=== PATIENT | male | born 1955 | race African-American/Black ===

== ENCOUNTER 2017-05-29 14:51 | Inpatient (IN) | payer OTHER ==
[~2017-05-29] VITALS: Ht 185.4 cm; Wt 90.3 kg
[2017-05-29] MEDS ORDERED: Ipratropium 0.02% Inh Soln 2.5ml UD HHN ONE (15:15)
[2017-05-29] MEDS ORDERED: Morphine Sulfate 2mg/ml Inj IVP ONE (15:15)
[2017-05-29] MEDS ORDERED: Albuterol ud Inhalation HHN ONE ×2 (15:15→17:30)
--- NOTE | 2017-05-29 15:16 | Emergency Room Report ---
History of Present Illness General Chief Complaint: To Be Triaged Source: Patient, Family Member Present Illness HPI The patient presents with shortness of breath and orthopnea. She was discharged yesterday from [facility]. She was hospitalized 5 times this month. She has congestive heart failure. She was discharged on Lasix and Bumex however has not been putting out much urine. She denies any fevers. She has pain in her legs that's 5/10 and aching. She still smokes and has a productive cough of yellow phlegm. There is no blood. She does not have a nebulizer. She does hear herself wheezing. Her ejection fraction is 15%. She states she was told her kidneys are bad but has not needed dialysis. The edema is significant her legs and she has trouble ambulating at this time. Also she feels bloated. Her friend noted some hematuria yesterday. She is on Coumadin for clots in her legs. 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 She is also status post splenectomy. She has hepatitis C and is HIV positive. Still smoking. Allergies: Coded Allergies: No Known Allergies (Unverified , 05/29/17) Patient History Past Medical History: see triage record Past Surgical History: pacemaker - AICD, other - amputated toes L foot, splenectomy, IVC filter Social History: Reports: smoking, drug use - prior Social History Narrative at home with friend Reviewed Nursing Documentation: PMH: Agreed, PSxH: Agreed Review of Systems All Other Systems: negative except mentioned in HPI Physical Exam Vital Signs Date Time Temp Pulse Resp B/P (MAP) Pulse Ox O2 Delivery O2 Flow Rate FiO2 05/29/17 15:00 97.6 127 24 104/53 96 Room Air 97.5 05/29/17 15:18 21 05/29/17 17:29 3.0 Sp02 EP Interpretation: reviewed, normal General Appearance: alert, GCS 15, other - sallo, Chronically Ill Head: normocephalic Eyes: bilateral eye PERRL, bilateral eye other - sallo ENT: moist mucus membranes Neck: supple Respiratory: rhonchi, wheezing, expiration, other - pacemaker Cardiovascular #1: JVD - to forehead, gallop/S3, edema - 3+ pitting bilat Cardiovascular #2: 2+ radial (R) Gastrointestinal: soft, distended Musculoskeletal: back normal, Samra's Sign negative, swelling Neurologic: alert, oriented x3, motor strength/tone normal, other - difficulty standing on own Psychiatric: depressed affect Skin: warm/dry, other - sallo and some ecchymoses Medical Decision Making Diagnostic Impression: Primary Impression: Congestive heart failure Qualified Codes: I50.23 - Acute on chronic systolic (congestive) heart failure Additional Impressions: NSTEMI (non-ST elevated myocardial infarction) Renal failure Qualified Codes: N17.9 - Acute kidney failure, unspecified; N18.3 - Chronic kidney disease, stage 3 (moderate) Hepatitis C Qualified Codes: B18.2 - Chronic viral hepatitis C HIV (human immunodeficiency virus infection) Anticoagulation adequate H/O deep venous thrombosis ER Course The patient presents with dyspnea and orthopnea with history of congestive heart failure and decreased urine output. Differential includes acute myocardial infarction, exacerbation of congestive heart failure, renal failure, pericardial effusion, bronchitis amongst others. Patient has severe congestive heart failure and is not hypertensive. Will be assessing her with EKG, chest x- ray and labs. She also has bronchospasm and tobacco abuse. This will be treated with albuterol. Will be treated with Lasix. Also her pain will be treated with some morphine that might help her capacitance veins. EKG paced, abnormal ST waves. CXR with CHF and pacer with effusions. Labs with normal WBC, slight anemia, therapeutic INR, elevated bili, renal failure with normal lytes. Elevated BNP. Lab called with + troponin. Aspirin given. Already anticoagulated. BP low and unable to give beta blockers or nitrates. No urine output. Bumex added. Somewhat improved with treatment. Discussed diagnoses with patient and friend. They were inquiring about possible transplants. Admit Dr. Johnnie LANDIS. Laboratory Tests Test 05/29/17 15:44 05/29/17 21:08 White Blood Count 7.5 K/UL (4.8-10.8) Red Blood Count 3.21 M/UL (4.70-6.10) L Hemoglobin 12.6 G/DL (14.2-18.0) L Hematocrit 38.7 % (42.0-52.0) L Mean Corpuscular Volume 121 FL (80-99) H Mean Corpuscular Hemoglobin 39.3 PG (27.0-31.0) H Mean Corpuscular Hemoglobin Concent 32.5 G/DL (32.0-36.0) Red Cell Distribution Width 18.9 % (11.6-14.8) H Platelet Count 191 K/UL (150-450) Mean Platelet Volume 8.3 FL (6.5-10.1) Neutrophils (%) (Auto) % (45.0-75.0) Lymphocytes (%) (Auto) % (20.0-45.0) Monocytes (%) (Auto) % (1.0-10.0) Eosinophils (%) (Auto) % (0.0-3.0) Basophils (%) (Auto) % (0.0-2.0) Differential Total Cells Counted 100 Neutrophils % (Manual) 24 % (45-75) L Lymphocytes % (Manual) 66 % (20-45) H Monocytes % (Manual) 8 % (1-10) Eosinophils % (Manual) 0 % (0-3) Basophils % (Manual) 2 % (0-2) Band Neutrophils 0 % (0-8) Nucleated Red Blood Cells 3 /100 WBC Platelet Estimate Adequate Platelet Morphology Normal Anisocytosis 2+ Macrocytosis 1+ Prothrombin Time 27.9 SEC (9.30-11.50) H Prothrombin Time INR 2.6 (0.9-1.1) H Sodium Level 140 MMOL/L (136-145) Potassium Level 4.3 MMOL/L (3.5-5.1) Chloride Level 102 MMOL/L (98-107) Carbon Dioxide Level 31 MMOL/L (21-32) Anion Gap 7 mmol/L (5-15) Blood Urea Nitrogen 43 mg/dL (7-18) H Creatinine 3.1 MG/DL (0.55-1.30) H Estimate Glomerular Filtration Rate 25.1 mL/min (>60) Glucose Level 95 MG/DL (74-106) Calcium Level 8.9 MG/DL (8.5-10.1) Total Bilirubin 2.7 MG/DL (0.2-1.0) H Direct Bilirubin 1.7 MG/DL (0.0-0.3) H Aspartate Amino Transferase (AST) 69 U/L (15-37) H Alanine Aminotransferase (ALT) 40 U/L (12-78) Alkaline Phosphatase 63 U/L (46-116) Total Creatine Kinase 175 U/L (26-308) Troponin I 0.099 ng/mL (0.000-0.056) 0.080 ng/mL (0.000-0.056) Pro-B-Type Natriuretic Peptide 22733 pg/mL (0-125) H Total Protein 7.5 G/DL (6.4-8.2) Albumin 3.1 G/DL (3.4-5.0) L Globulin 4.4 g/dL Albumin/Globulin Ratio 0.7 (1.0-2.7) L EKG Diagnostic Results Rate: tachycardiac Rhythm: other - Based ST Segments: other - Abnormal repolarization Rhythm Strip Diag. Results EP Interpretation: yes Rhythm: no PVC's, no ectopy, other - Paced Chest X-Ray Diagnostic Results Chest X-Ray Diagnostic Results : Chest X-Ray Ordered: Yes # of Views/Limited/Complete: 1 View Indication: Shortness of Breath EP Interpretation: Yes Interpretation: no pneumothorax, other - chf, effusions, pacer, cardiomegally Impression: Other Electronically Signed by: Negro Nova MD Last Vital Signs Date Time Temp Pulse Resp B/P (MAP) Pulse Ox O2 Delivery O2 Flow Rate FiO2 05/30/17 00:31 99.1 70 20 114/76 95 Nasal Cannula 3.0 21 99.1 Status: improved Disposition: ADMITTED INPATIENT Condition: Serious Negro Nova M.D. May 29, 2017 15:16
[2017-05-29 15:31] VITALS: BP 104/53
[2017-05-29] MEDS ORDERED: GABAPENTIN300 MG ORAL (16:06)
[2017-05-29] MEDS ORDERED: ATORVASTATIN CA40 MG ORAL (16:06)
[2017-05-29] MEDS ORDERED: ZIDOVUDINE300 MG ORAL (16:07)
[2017-05-29] MEDS ORDERED: BUMETANIDE0.5 MG ORAL (16:10)
[2017-05-29] MEDS ORDERED: WARFARIN SODIUM3 MG ORAL (16:10)
[2017-05-29] MEDS ORDERED: NAPROXEN500 M2 ORAL (16:11)
[2017-05-29] MEDS ORDERED: TIVICAY50 MG ORAL (16:12)
[2017-05-29] MEDS ORDERED: BAYER CHEWABLE81 MG PO (16:15)
[2017-05-29] MEDS ORDERED: CARVEDILOL3.125 MG ORAL (16:15)
[2017-05-29] MEDS ORDERED: FUROSEMIDE20 M1 ORAL (16:15)
[2017-05-29] MEDS ORDERED: BREO ELLIPTA 11 EACH IH (16:21)
[2017-05-29] MEDS ORDERED: DULERA 100 MCG/13 GM INH (16:21)
[2017-05-29 16:22] LABS: INR 2.6 (0.9-1.1)
[2017-05-29 16:23] LABS: ANION GAP 7 mmol/L (5-15); BLOOD UREA NITROGEN 43 mg/dL (7-18); CALCIUM 8.9 MG/DL (8.5-10.1); CARBON DIOXIDE 31 MMOL/L (21-32); CHLORIDE 102 MMOL/L (98-107); CREATININE 3.1 MG/DL (0.55-1.30); POTASSIUM 4.3 MMOL/L (3.5-5.1); SODIUM 140 MMOL/L (136-145)
[2017-05-29 16:26] LABS: HEMATOCRIT 38.7 % (42.0-52.0); HEMOGLOBIN 12.6 G/DL (14.2-18.0); MEAN CORPUSCULAR VOLUME 121 FL (80-99); PLATELET COUNT 191 K/UL (150-450); RED BLOOD COUNT 3.21 M/UL (4.70-6.10); RED CELL DISTRIBUTION WIDTH 18.9 % (11.6-14.8); WHITE BLOOD COUNT 7.5 K/UL (4.8-10.8)
[2017-05-29 16:42] LABS: ALANINE AMINOTRANSFERASE 40 U/L (12-78); ALBUMIN 3.1 G/DL (3.4-5.0); ALBUMIN/GLOBULIN RATIO 0.7 (1.0-2.7); ALKALINE PHOSPHATASE 63 U/L (46-116); ASPARTATE AMINO TRANSFERASE 69 U/L (15-37); BILIRUBIN,TOTAL 2.7 MG/DL (0.2-1.0); CREATINE KINASE 175 U/L (26-308)
[2017-05-29 16:46] LABS: BILIRUBIN,DIRECT 1.7 MG/DL (0.0-0.3)
[2017-05-29] MEDS ORDERED: Bumetanide 2.5mg/10ml Inj IVP ONE (17:15)
[2017-05-29 17:29] VITALS: BP 109/83
[2017-05-29 20:00] VITALS: BP 112/78
[2017-05-29] MEDS ORDERED: Albuterol/Ipratropium 3ml neb HHN PRN (20:00)
[2017-05-29] MEDS ORDERED: Miralax 17gm pkt ORAL PRN (20:00)
[2017-05-29] MEDS ORDERED: EMTRIVA200 MG ORAL (20:13)
[2017-05-29] MEDS ORDERED: MIRTAZAPINE15 M1 ORAL (20:13)
[2017-05-29] MEDS: Atorvastatin 20mg tab ORAL SCH (21:23)
[2017-05-29] MEDS: Heparin 5000 units/ml inj SUBQ SCH (21:25)
[2017-05-29] MEDS ORDERED: Promethazine/Codeine 5ml UD ORAL PRN (22:00)
[2017-05-30 00:31] VITALS: BP 114/76
[2017-05-30 04:00] VITALS: BP 96/75
[2017-05-30 08:00] VITALS: BP 145/61
[2017-05-30] MEDS ORDERED: Metoprolol 5mg/5ml Inj IVP SCH (08:00)
[2017-05-30 08:23] LABS: INR 2.6 (0.9-1.1)
[2017-05-30 08:24] LABS: HEMATOCRIT 35.8 % (42.0-52.0); HEMOGLOBIN 11.4 G/DL (14.2-18.0); MEAN CORPUSCULAR VOLUME 120 FL (80-99); PLATELET COUNT 198 K/UL (150-450); RED BLOOD COUNT 2.98 M/UL (4.70-6.10); RED CELL DISTRIBUTION WIDTH 19.2 % (11.6-14.8); WHITE BLOOD COUNT 7.5 K/UL (4.8-10.8)
[2017-05-30 08:28] LABS: ALBUMIN 2.7 G/DL (3.4-5.0); ANION GAP 11 mmol/L (5-15); BLOOD UREA NITROGEN 45 mg/dL (7-18); CALCIUM 8.6 MG/DL (8.5-10.1); CARBON DIOXIDE 26 MMOL/L (21-32); CHLORIDE 103 MMOL/L (98-107); CREATININE 2.8 MG/DL (0.55-1.30); PHOSPHORUS 4.3 MG/DL (2.5-4.9); POTASSIUM 4.2 MMOL/L (3.5-5.1); SODIUM 140 MMOL/L (136-145)
[2017-05-30] MEDS: Dolutegravir Sodium 50mg tab ORAL SCH (09:24)
[2017-05-30] MEDS: Carvedilol 6.25mg Tab ORAL SCH ×2 (09:25→17:34)
[2017-05-30] MEDS: Heparin 5000 units/ml inj SUBQ SCH ×2 (09:27→22:10)
--- NOTE | 2017-05-30 10:52 | Diagnostic Imaging Report ---
Indication: Dyspnea Technique: One view of the chest Comparison: 05/29/2017 Findings: There is increasing interstitial and airspace edema. Bilateral pleural effusions persist. Cardiomegaly persists. Left chest biventricular AICD again demonstrated Impression: Evidence of worsening congestive heart failure, over one day
--- NOTE | 2017-05-30 11:12 | Diagnostic Imaging Report ---
Indication: Dyspnea Technique: One view of the chest Comparison: none Findings: Heart is enlarged. There is a left chest biventricular AICD. There are bilateral basilar and interstitial and alveolar infiltrates versus edema and bilateral pleural effusions Impression: Cardiomegaly Evidence of congestive heart failure versus bilateral infiltrates Bilateral pleural effusions. This agrees with the preliminary interpretation provided by the emergency room physician
[2017-05-30 12:00] VITALS: BP 108/66
--- NOTE | 2017-05-30 13:01 | Consultation ---
History of Present Illness General Date patient seen: May 30, 2017 Chief Complaint: Dyspnea/Respdistress Present Illness HPI 62 year old male with hx of CAD, cardiomyopathy, ICD, ejection fraction is 15%. hepatitis C and HIV, status post splenectomy positive presented to ER with shortness of breath and orthopnea. She was discharged yesterday from [facility]. She was hospitalized 5 times this month. She has congestive heart failure. She was discharged on Lasix and Bumex however has not been putting out much urine. He has a productive cough of yellow phlegm. Allergies: Coded Allergies: No Known Allergies (Unverified , 05/29/17) Medication History Scheduled Aspirin (Reymundo Chewable), 81 MG PO DAILY, (Reported) Atorvastatin Calcium* (Atorvastatin Calcium*), 40 MG ORAL BEDTIME, (Reported) Bumetanide* (Bumetanide*), 0.5 MG ORAL BID, (Reported) Carvedilol* (Carvedilol*), 3.125 MG ORAL BID, (Reported) Dolutegravir Sodium (Tivicay), 50 MG ORAL DAILY, (Reported) Emtricitabine* (Emtriva*), 200 MG ORAL EVERY OTHER DAY, (Reported) Furosemide* (Lasix*), 20 MG ORAL DAILY, (Reported) Gabapentin* (Gabapentin*), 300 MG ORAL EVERY 6 HOURS, (Reported) Mirtazapine (Mirtazapine), 15 MG ORAL BEDTIME, (Reported) Mometasone/Formoterol (Dulera 100 Mcg/5 Mcg Inhaler), 2 PUFFS INH EVERY 12 HOURS , (Reported) Naproxen* (Naproxen*), 500 MG ORAL TWICE A DAY, (Reported) Warfarin Sod* (Warfarin Sod*), 3 MG ORAL HS, (Reported) Zidovudine (Zidovudine), 300 MG ORAL BID, (Reported) Miscellaneous Medications Fluticasone/Vilanterol (Breo Ellipta 100-25 Mcg INH), 1 EACH IH, (Reported) Patient History Healthcare decision maker Resuscitation status Full Code Advanced Directive on File Past Medical/Surgical History Past Medical/Surgical History: (1) EF 15% (2) Congestive heart failure (3) HIV (human immunodeficiency virus infection) (4) Hepatitis C Review of Systems All Other Systems: negative except mentioned in HPI Physical Exam General Appearance: WD/WN Lines, tubes and drains: peripheral HEENT: normocephalic Neck: non-tender Respiratory/Chest: chest wall non-tender, lungs clear Breasts: no masses Cardiovascular/Chest: normal peripheral pulses Abdomen: normal bowel sounds Genitourinary/Rectal: normal genital exam Skin Exam: normal pigmentation 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 Last 24 Hour Vital Signs Date Time Temp Pulse Resp B/P (MAP) Pulse Ox O2 Delivery O2 Flow Rate FiO2 05/30/17 09:31 95 Nasal Cannula 3.0 32 05/30/17 09:30 Nasal Cannula 3.0 32 05/30/17 09:25 79 145/61 05/30/17 09:25 79 145/61 05/30/17 08:00 98.2 79 20 145/61 95 Nasal Cannula 3.0 21 98.2 05/30/17 08:00 124 05/30/17 07:35 79 16 Nasal Cannula 3.0 32 05/30/17 04:00 76 05/30/17 04:00 98.4 75 20 96/75 95 Nasal Cannula 3.0 21 98.4 05/30/17 00:31 99.1 70 20 114/76 95 Nasal Cannula 3.0 21 99.1 05/30/17 00:00 83 05/29/17 20:00 97.0 85 20 112/78 98 Nasal Cannula 3.0 21 97.0 05/29/17 20:00 82 05/29/17 18:10 97.8 126 24 109/83 100 Nasal Cannula 3.0 32 97.8 05/29/17 17:44 128 24 100 Nasal Cannula 3.0 32 05/29/17 17:35 128 25 96 Nasal Cannula 3.0 32 18 17:29 97.8 126 15 109/83 98 Nasal Cannula 3.0 21 97.8 05/29/17 15:50 97.5 05/29/17 15:31 97.5 122 22 104/53 100 Room Air 21 97.5 05/29/17 15:30 120 22 100 Room Air 21 05/29/17 15:18 128 16 95 Room Air 21 05/29/17 15:18 128 16 Room Air 21 05/29/17 15:05 127 24 Room Air 05/29/17 15:00 97.6 127 24 104/53 96 Room Air 97.5 Intake and Output 05/29/17 05/30/17 19:00 07:00 Intake Total 100 ml 600 ml Output Total 200 ml Balance 100 ml 400 ml Intake Oral 100 ml 600 ml Output Urine Total 200 ml Laboratory Tests Test 05/29/17 15:44 05/29/17 21:08 05/30/17 07:10 White Blood Count 7.5 K/UL (4.8-10.8) 7.5 K/UL (4.8-10.8) Red Blood Count 3.21 M/UL (4.70-6.10) L 2.98 M/UL (4.70-6.10) L Hemoglobin 12.6 G/DL (14.2-18.0) L 11.4 G/DL (14.2-18.0) L Hematocrit 38.7 % (42.0-52.0) L 35.8 % (42.0-52.0) L Mean Corpuscular Volume 121 FL (80-99) H 120 FL (80-99) H Mean Corpuscular Hemoglobin 39.3 PG (27.0-31.0) H 38.2 PG (27.0-31.0) H Mean Corpuscular Hemoglobin Concent 32.5 G/DL (32.0-36.0) 31.7 G/DL (32.0-36.0) L Red Cell Distribution Width 18.9 % (11.6-14.8) H 19.2 % (11.6-14.8) H Platelet Count 191 K/UL (150-450) 198 K/UL (150-450) Mean Platelet Volume 8.3 FL (6.5-10.1) 9.3 FL (6.5-10.1) Neutrophils (%) (Auto) % (45.0-75.0) % (45.0-75.0) Lymphocytes (%) (Auto) % (20.0-45.0) % (20.0-45.0) Monocytes (%) (Auto) % (1.0-10.0) % (1.0-10.0) Eosinophils (%) (Auto) % (0.0-3.0) % (0.0-3.0) Basophils (%) (Auto) % (0.0-2.0) % (0.0-2.0) Differential Total Cells Counted 100 100 Neutrophils % (Manual) 24 % (45-75) L 19 % (45-75) L Lymphocytes % (Manual) 66 % (20-45) H 66 % (20-45) H Monocytes % (Manual) 8 % (1-10) 15 % (1-10) H Eosinophils % (Manual) 0 % (0-3) 0 % (0-3) Basophils % (Manual) 2 % (0-2) 0 % (0-2) Band Neutrophils 0 % (0-8) 0 % (0-8) Nucleated Red Blood Cells 3 /100 WBC Platelet Estimate Adequate Adequate Platelet Morphology Normal Normal Anisocytosis 2+ 1+ Macrocytosis 1+ 2+ Prothrombin Time 27.9 SEC (9.30-11.50) H 27.7 SEC (9.30-11.50) H Prothromb Time International Ratio 2.6 (0.9-1.1) H 2.6 (0.9-1.1) H Sodium Level 140 MMOL/L (136-145) 140 MMOL/L (136-145) Potassium Level 4.3 MMOL/L (3.5-5.1) 4.2 MMOL/L (3.5-5.1) Chloride Level 102 MMOL/L (98-107) 103 MMOL/L (98-107) Carbon Dioxide Level 31 MMOL/L (21-32) 26 MMOL/L (21-32) Anion Gap 7 mmol/L (5-15) 11 mmol/L (5-15) Blood Urea Nitrogen 43 mg/dL (7-18) H 45 mg/dL (7-18) H Creatinine 3.1 MG/DL (0.55-1.30) H 2.8 MG/DL (0.55-1.30) H Estimat Glomerular Filtration Rate 25.1 mL/min (>60) 28.1 mL/min (>60) Glucose Level 95 MG/DL (74-106) 85 MG/DL (74-106) Calcium Level 8.9 MG/DL (8.5-10.1) 8.6 MG/DL (8.5-10.1) Total Bilirubin 2.7 MG/DL (0.2-1.0) H Direct Bilirubin 1.7 MG/DL (0.0-0.3) H Aspartate Amino Transf (AST/SGOT) 69 U/L (15-37) H Alanine Aminotransferase (ALT/SGPT) 40 U/L (12-78) Alkaline Phosphatase 63 U/L (46-116) Total Creatine Kinase 175 U/L (26-308) Troponin I 0.099 ng/mL (0.000-0.056) 0.080 ng/mL (0.000-0.056) 0.104 ng/mL (0.000-0.056) Pro-B-Type Natriuretic Peptide 59416 pg/mL (0-125) H Total Protein 7.5 G/DL (6.4-8.2) Albumin 3.1 G/DL (3.4-5.0) L 2.7 G/DL (3.4-5.0) L Globulin 4.4 g/dL Albumin/Globulin Ratio 0.7 (1.0-2.7) L Polychromasia 1+ Hypochromasia 1+ Phosphorus Level 4.3 MG/DL (2.5-4.9) Height (Feet): 6 Height (Inches): 1.00 Weight (Pounds): 240 Medications Current Medications Medications (Trade) Dose Ordered Sig/Kane Route PRN Reason Start Time Stop Time Status Last Admin Dose Admin Acetaminophen (Tylenol) 650 mg Q4H PRN ORAL Fever 05/29/17 20:00 06/28/17 19:59 Albuterol/ Ipratropium (Albuterol/ Ipratropium) 3 ml Q4H PRN HHN Shortness of Breath 05/29/17 20:00 06/03/17 19:59 Atorvastatin Calcium (Lipitor) 40 mg BEDTIME ORAL 05/29/17 21:00 06/28/17 20:59 05/29/17 21:23 Carvedilol (Coreg) 6.25 mg BID ORAL 05/30/17 09:00 06/29/17 08:59 05/30/17 09:25 Dextrose (Dextrose 50%) STAT PRN IV Hypoglycemia 05/29/17 20:00 06/28/17 19:59 Dolutegravir Sodium (Tivicay) 50 mg DAILY ORAL 05/30/17 09:00 06/29/17 08:59 05/30/17 09:24 Furosemide (Lasix) 40 mg EVERY 8 HOURS IV 05/29/17 22:00 06/28/17 21:59 05/30/17 06:01 Gabapentin (Neurontin) 300 mg EVERY 6 HOURS ORAL 05/30/17 00:00 06/29/17 00:00 05/30/17 05:55 Heparin Sodium (Porcine) (Heparin 5000 units/ml) 5,000 units EVERY 12 HOURS SUBQ 05/29/17 21:00 06/28/17 20:59 05/30/17 09:27 Metoprolol Tartrate (Lopressor) 5 mg Q5MIN X 3 IVP 05/30/17 08:00 06/29/17 07:59 05/30/17 09:25 Ondansetron HCl (Zofran) 4 mg Q6H PRN IVP Nausea & Vomiting 05/29/17 20:00 06/28/17 19:59 Ondansetron HCl (Zofran) 4 mg Q6H PRN IVP Nausea & Vomiting 05/29/17 20:00 06/28/17 19:59 Polyethylene Glycol (Miralax) 17 gm DAILYPRN PRN ORAL Constipation 05/29/17 20:00 06/28/17 19:59 Promethazine HCl/ Codeine (Phenergan with Codeine) 5 ml Q4H PRN ORAL For Cough 05/29/17 22:00 06/28/17 21:59 05/29/17 22:10 Temazepam (Restoril) 15 mg HSPRN PRN ORAL Insomnia 05/29/17 20:00 06/05/17 19:59 Warfarin Sodium (Coumadin per pharmacy) 1 ea DAILYPRN PRN MISC Per rx protocol 05/30/17 09:00 06/29/17 08:59 Warfarin Sodium (Coumadin) 3 mg COUMADIN ORAL 05/30/17 17:00 06/04/17 16:59 Assessment/Plan Problem List: (1) Congestive heart failure ICD Codes: I50.9 - Heart failure, unspecified SNOMED: 92484145 Qualifiers: Qualified Codes: I50.23 - Acute on chronic systolic (congestive) heart failure (2) Acute bronchitis ICD Codes: J20.9 - Acute bronchitis, unspecified SNOMED: 44939982 (3) EF 15% (4) HIV (human immunodeficiency virus infection) ICD Codes: B20 - Human immunodeficiency virus [HIV] disease SNOMED: 59763219 (5) Hepatitis C ICD Codes: B19.20 - Unspecified viral hepatitis C without hepatic coma SNOMED: 20695474 Qualifiers: Qualified Codes: B18.2 - Chronic viral hepatitis C Assessment/Plan respiratory treatment IV diuretics echo cariology f/u check sputum Alise Hodge MD May 30, 2017 13:01
[2017-05-30 16:00] VITALS: BP 114/90
[2017-05-30] MEDS: Warfarin Sodium 3mg ORAL SCH (17:34)
[2017-05-30 20:00] VITALS: BP 104/60
--- NOTE | 2017-05-30 20:45 | History and Physical Report ---
DATE OF ADMISSION: 05/29/2017 TIME: 3 p.m. CONSULTANTS: 1. Alise Hodge M.D. 2. Salvador Saavedra M.D. CHIEF COMPLAINT: Exacerbation of short of breath, edema, anasarca, and NSTEMI. BRIEF HISTORY: This is a 62-year-old female, who lives at home, complaining of increased shortness of breath, increasing over the last 30 days. The patient came to [facility], diagnosed with exacerbation of CHF and NSTEMI, edema and anasarca, admitted to telemetry for further care. Currently on O2, calm in bed, slight short of breath. No complaint. PAST MEDICAL HISTORY: Renal failure, HIV, NSTEMI, and CHF. PAST SURGICAL HISTORY: Left foot surgery amputation toe and splenectomy. MEDICATIONS: Levofloxacin, Coumadin, Zaroxolyn, carvedilol, Coreg, Coumadin, Lopressor, gabapentin, furosemide, Lipitor, heparin, Tylenol, and . ALLERGIES: Denies. SOCIAL HISTORY: Positive smoking. No alcohol. No intravenous drug use. FAMILY HISTORY: Noncontributory. REVIEW OF SYSTEMS: No chest pain. Slight short of breath. No nausea, vomiting, or diarrhea. PHYSICAL EXAMINATION: GENERAL: Calm in bed, slight short of breath. O2 . VITAL SIGNS: Temperature is 97 degrees, pulse 77, respiratory rate 20, and blood pressure 108/66. CARDIOVASCULAR: No murmur. LUNGS: Poor air exchange. ABDOMEN: Bowel sounds positive. Nontender. Nondistended. EXTREMITIES: No cyanosis or clubbing. There is 2-3 edema bilaterally up to mid thigh. NEUROLOGIC: The patient moves all extremities slightly weak. LABORATORY AND DIAGNOSTIC DATA: Hemoglobin and hematocrit 11 and 35 and platelets 198, otherwise CBC is normal. BMP show BUN and creatinine 45 and 2.8, otherwise BMP is normal. INR is 2.6. ASSESSMENT: 1. Exacerbation of congestive heart failure. 2. Anemia. 3. Shortness breath. 4. Non-ST elevation myocardial infarction. 5. Hypertension. 6. Edema. 7. Renal failure. 8. Human immunodeficiency virus. 9. Congestive heart failure. 10. Anasarca. PLAN: Continue pre-medications. O2 and pulmonary treatment. Diuresis. Blood pressure control. Nephrology followup. Dietary followup. OT/PT. Dietary evaluation. CBC and BMP in the morning. Dr. Hodge, Dr. Saavedra, and Dr. Thomas to consult. Ludin Blair D.O. DR: CHRISTIANO JOB#: [id number] CC:
--- NOTE | 2017-05-30 21:15 | Consultation ---
DATE OF CONSULTATION: 05/30/2017 CARDIOLOGY CONSULTATION CONSULTING PHYSICIAN: Salvador Saavedra M.D. REFERRING PHYSICIAN: Ludin Blair D.O. REASON FOR CONSULTATION: Management of shortness of breath and heart failure. HISTORY OF PRESENT ILLNESS: The patient is a very unfortunate 62-year-old gentleman who presents to the hospital with shortness of breath and orthopnea. He was just discharged from [facility] and was placed on Lasix and Bumex, however, he claims that with above two medications, he was not putting out much urine and continued to be short of breath. He has had bilateral lower extremity edema causing pain in both legs. He has had frequent hospitalization at [facility] including 5 times admission. 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 In addition to above, he had productive cough of yellowish phlegm as well as wheezing. PAST MEDICAL HISTORY: FOIL WRAPPER/D; severe cardiomyopathy with LVEF approximately 15%; history of PAD, status post amputation of left foot toes; history of chronic kidney disease; history of hepatitis C virus infection and history of HIV disease. PAST SURGICAL HISTORY: Pacemaker, AICD by implantation, amputation of left foot toes, history of splenectomy and history of IVC filter placement. MEDICATIONS: List of medications including aspirin 81 mg p.o. daily, atorvastatin 40 mg p.o. at bedtime, bumetanide 0.5 mg twice daily, carvedilol 3.125 mg twice daily, 50 mg daily, Emtriva 200 mg every other day, Breo Ellipta 100/25 inhaler every day, furosemide 20 mg p.o. daily, gabapentin 300 mg q.6 h., mirtazapine 15 mg p.o. at bedtime, mometasone formoterol 2 puffs inhaler q.12 h., naproxen 500 mg twice a day, warfarin 3 mg at bedtime and zidovudine 300 mg twice a day. ALLERGIES: No known drug allergies. SOCIAL HISTORY: Continues to smoke and use drugs and denies any alcohol use. He lives at home with a friend. REVIEW OF SYSTEMS: A 12-system review done essentially negative except what mentioned in the history of present illness. PHYSICAL EXAMINATION: GENERAL: The patient is a very unfortunate 62-year-old gentleman, seen in no apparent respiratory distress. VITAL SIGNS: Blood pressure was 104/53, respirations 24, pulse of 127, temperature 97.6 degrees Fahrenheit, and O2 saturation 96% on room air. HEENT: Atraumatic and normocephalic. ENT, pupils are equal, round, and reactive to light and accommodation. Extraocular muscles intact. NECK: JVP of about 15 cm. No carotid bruits. Carotid upstrokes 2+. CARDIOVASCULAR: Normal S1 and S2. Distant, regular rate and rhythm. A 2/6 holosystolic murmur at the apex. LUNGS: Diminished breath sounds in both bases with increased dullness. There are scattered crackles in both bases in both lungs. Diminished expansion of the chest bilaterally. ABDOMEN: Soft, nontender, and nondistended. No hepatosplenomegaly. Positive bowel sounds. EXTREMITIES: There is 4+ bilateral edema. LABORATORY AND DIAGNOSTIC DATA: Sodium was 140, potassium is 4.3, chloride 102, bicarbonate 31, BUN of 43, creatinine 3.1 and glucose is 95. Calcium is 8.9. Troponin-I is 0.099, 0.080 and 0.104. ProBNP was 20,961. INR is 2.6. WBC 7.5, hemoglobin was 7.6, hematocrit of 38.7, and platelet count is 191. A 12-lead electrocardiogram shows sinus tachycardia, rate of 127 with biventricular pace rhythm. Chest x-ray shows cardiomegaly with evidence of congestive heart failure and bilateral pleural effusions. ASSESSMENT AND PLAN: The patient is a very unfortunate 62-year-old gentleman who presents to the hospital with class 3 NYHA symptoms of acute heart failure. Cardiology consultation was made at the request of Dr. Ludin Blair. 1. Acute systolic and diastolic congestive heart failure. In addition to intravenous Lasix ordered by Dr. Hodge, I would like to add metolazone 5 mg p.o. daily in particular given the patient's creatinine of 3.5. He is extremely volume overloaded with the beta-natriuretic peptide exceeding 20,000. We would like to get to his dry weight as soon as we can. We will require I's and O's, daily weight and fluid restriction less than 1500. 2. Possible left ventricular thrombus. The patient is already on Coumadin with therapeutic level of INR at 2.6. 3. Status post cardiac resynchronization therapy plus defibrillator implantation for prevention of sudden cardiac as well as his underlying congestive heart failure. 4. Chronic kidney disease, could be cardiorenal. Diuretic may help the creatinine or on the other hand may worsen the creatinine. Nephrology consultation is warranted. We will continue to monitor the patient's creatinine and potassium throughout this hospitalization. I would like to thank Dr. Blair for the courtesy of this consultation. Salvador Saavedra M.D. DR: APRIL JOB#: [id number] CC:
[2017-05-30] MEDS: Atorvastatin 20mg tab ORAL SCH (22:08)
[2017-05-31] VITALS: BP 99/64
[2017-05-31 01:20] LABS: BILIRUBIN, URINE NEGATIVE (NEGATIVE); COLOR,URINE PALE YELLOW; GLUCOSE, URINE (UA) NEGATIVE (NEGATIVE); KETONES,URINE NEGATIVE (NEGATIVE); LEUKOCYTE ESTERASE ,URINE NEGATIVE (NEGATIVE); NITRITE,URINE NEGATIVE (NEGATIVE); PH,URINE 6.5 (4.5-8.0); PROTEIN,URINE NEGATIVE (NEGATIVE); UROBILINOGEN,URINE NORMAL MG/DL (0.0-1.0)
[2017-05-31 01:22] LABS: APPEARANCE,URINE CLEAR
--- NOTE | 2017-05-31 02:45 | Consultation ---
DATE OF CONSULTATION: 05/30/2017 NEPHROLOGY CONSULTATION CONSULTING PHYSICIAN: Nida Thomas M.D. REFERRING PHYSICIAN: Ludin Blair D.O. REASON FOR CONSULTATION: Acute on chronic renal failure. HISTORY OF PRESENT ILLNESS: The patient is a 62-year-old unfortunate male with past medical history significant for history of HIV, hypertension, history of cardiomyopathy with ejection fraction of 15%, history of AICD placement, history of hepatitis C, and HIV who had a recent admission at [facility] for acute shortness of breath. The patient was consequently discharged with Bumex and Lasix, but continued to have low urine output. He presented to the emergency room with increasing shortness of breath, TAYLOR, and bilateral lower extremity swelling. Upon admission, the patient was found to have a creatinine of 3. I was called for management of renal disease and electrolyte imbalance. Unfortunately, the patient is not aware of baseline creatinine, but has some history of chronic kidney disease. PAST MEDICAL HISTORY: 1. History of chronic kidney disease, baseline creatinine is unknown. 2. History of cardiomyopathy. 3. History of hypertension. 4. History of toe amputation. 5. History of IVDA. 6. History of hepatitis C. 7. History of HIV. PAST SURGICAL HISTORY: 1. History of AICD placement. 2. History of amputation of the left toe. 3. History of splenectomy. 4. History of IVC filter placement. MEDICATIONS: Home medications are including 1. Aspirin 81 mg p.o. daily. 2. Atorvastatin 40 mg at bedtime. 3. Bumetanide 0.5 mg p.o. b.i.d. 4. Carvedilol 3.125 mg p.o. daily. 5. Emtriva 200 mg p.o. daily. 6. Ellipta 125 mg. 7. Lasix 20 mg daily. 8. Gabapentin 300 mg p.o. daily. 9. Mirtazapine 15 mg at bedtime. 10. Albuterol and Atrovent p.r.n. . 11. Naproxen 500 mg p.o. b.i.d. 12. Warfarin 3 mg at bedtime. 13. Zidovudine 300 mg p.o. t.i.d. ALLERGIES: No known drug allergies. SOCIAL HISTORY: He continues to smoke. Uses drug. Denies any alcohol at this point. He lives with his friend at home. REVIEW OF SYSTEMS: GENERAL: He complained of generalized weakness. Denied any fever, chills, or night sweats. HEAD AND NECK: Denies any dysphagia, odynophagia, blurry vision, headache, or neck stiffness. PULMONARY: Complained of shortness of breath, cough, and yellow sputum. CARDIOVASCULAR: Complained of orthopnea, PND and leg swelling. Denied any palpitations. GASTROINTESTINAL: Denies any nausea, vomiting, diarrhea, hematemesis, or hematochezia. GENITOURINARY: Denies any dysuria, frequency, or hematuria. Complained of decreased urine output. PHYSICAL EXAMINATION: VITAL SIGNS: The patient has a temperature of 98 degrees, blood pressure of 105/53, pulse rate of 127, and respiratory rate of 18. HEAD AND NECK: No JVP. No LAD. No thyromegaly. Extraocular movements intact. Pupils are reactive to light and accommodation. LUNGS: Decreased breathing sounds on both sides. CARDIAC: Regular rate and rhythm. S1 and S2. No murmur. No rub. ABDOMEN: Soft, nontender, and nondistended. EXTREMITIES: 4+ edema. No clubbing. No cyanosis. LABORATORY AND DIAGNOSTIC DATA: The patient has sodium of 140, potassium 4.3, chloride 102, bicarbonate 31, BUN of 46, creatinine of 3.1, and glucose of 95. Calcium of 8.9. BNP of 20,961. INR is 2.6. CBC revealed WBC count of 7.5, hemoglobin of 7.6, hematocrit of 38, and platelet count of 191. Chest x-ray, cardiomegaly with evidence of congestive heart failure. ASSESSMENT: 1. Acute renal failure. The etiology of acute renal failure including cardiorenal syndrome. 2. Chronic kidney disease. 3. Congestive heart failure exacerbation. 4. Fluid overload. 5. Congestive heart failure. PLAN: Plan for the patient is to obtain UA. Check the random urine protein-creatinine ratio to calculate the proteinuria. Check the urine sodium and creatinine to calculate fractional excretion of sodium. Lasix IV. Check the input and output and daily weight. Monitor renal function and electrolytes closely. Replace electrolytes as needed. Ultrasound of the kidney. Again, I would like to thank Dr. Ludin Blair for allowing me to participate in the care of this patient. Nida Marcela Thomas DR: JACINTA JOB#: [id number] CC:
[2017-05-31 04:00] VITALS: BP 106/61
[2017-05-31 08:00] VITALS: BP 117/76
[2017-05-31 08:22] LABS: HEMATOCRIT 34.1 % (42.0-52.0); MEAN CORPUSCULAR VOLUME 121 FL (80-99); PLATELET COUNT 182 K/UL (150-450); RED BLOOD COUNT 2.82 M/UL (4.70-6.10); RED CELL DISTRIBUTION WIDTH 19.2 % (11.6-14.8); WHITE BLOOD COUNT 7.1 K/UL (4.8-10.8)
[2017-05-31 08:33] LABS: INR 2.1 (0.9-1.1)
[2017-05-31] MEDS: Carvedilol 6.25mg Tab ORAL SCH ×2 (08:40→17:27)
[2017-05-31] MEDS: Dolutegravir Sodium 50mg tab ORAL SCH (08:40)
[2017-05-31] MEDS: Heparin 5000 units/ml inj SUBQ SCH ×2 (08:41→21:32)
[2017-05-31 09:18] LABS: ANION GAP 7 mmol/L (5-15); BLOOD UREA NITROGEN 50 mg/dL (7-18); CALCIUM 8.8 MG/DL (8.5-10.1); CARBON DIOXIDE 33 MMOL/L (21-32); CHLORIDE 101 MMOL/L (98-107); CREATININE 2.9 MG/DL (0.55-1.30); SODIUM 141 MMOL/L (136-145)
[2017-05-31 12:00] VITALS: BP 100/68
[2017-05-31] MEDS: Levofloxacin 250mg/D5W 50ml IVPB SCH (13:04)
--- NOTE | 2017-05-31 14:38 | General Progress Note ---
Assessment/Plan Problem List: (1) Anemia ICD Codes: D64.9 - Anemia, unspecified SNOMED: 988906418 (2) SOB (shortness of breath) ICD Codes: R06.02 - Shortness of breath SNOMED: 223304796 (3) HTN (hypertension) ICD Codes: I10 - Essential (primary) hypertension SNOMED: 83817623 (4) Edema ICD Codes: R60.9 - Edema, unspecified SNOMED: 023460102, 404861649 (5) Anasarca ICD Codes: R60.1 - Generalized edema SNOMED: 767883386, 342554433 (6) Renal failure ICD Codes: N19 - Unspecified kidney failure SNOMED: 19433105 Qualifiers: Qualified Codes: N17.9 - Acute kidney failure, unspecified; N18.3 - Chronic kidney disease, stage 3 (moderate) (7) HIV (human immunodeficiency virus infection) ICD Codes: B20 - Human immunodeficiency virus [HIV] disease SNOMED: 83602073 (8) NSTEMI (non-ST elevated myocardial infarction) ICD Codes: I21.4 - Non-ST elevation (NSTEMI) myocardial infarction SNOMED: 497861894, 531310134 (9) Congestive heart failure ICD Codes: I50.9 - Heart failure, unspecified SNOMED: 98600404 Qualifiers: Qualified Codes: I50.23 - Acute on chronic systolic (congestive) heart failure Status: unchanged Assessment/Plan o2 pul tx ot pt diet bp control cbc bmp am Subjective Constitutional: Reports: weakness Respiratory: Reports: shortness of breath Allergies: Coded Allergies: No Known Allergies (Unverified , 05/29/17) All Systems: reviewed and negative except above Subjective o2nc sleepy in bed Objective Last 24 Hour Vital Signs Date Time Temp Pulse Resp B/P (MAP) Pulse Ox O2 Delivery O2 Flow Rate FiO2 05/31/17 12:00 99 05/31/17 12:00 97.5 99 21 100/68 92 Nasal Cannula 3.0 97.5 05/31/17 08:40 75 117/76 05/31/17 08:30 96 Nasal Cannula 3.0 32 05/31/17 08:30 Nasal Cannula 3.0 32 05/31/17 08:00 97.2 75 20 117/76 92 Nasal Cannula 3.0 95 97.2 05/31/17 08:00 118 05/31/17 04:00 73 05/31/17 04:00 96.4 100 19 106/61 96 Nasal Cannula 3.0 95 96.4 05/31/17 00:00 69 05/31/17 00:00 96.7 116 22 99/64 98 Nasal Cannula 3.0 95 96.7 05/30/17 20:00 97.7 71 22 104/60 100 Nasal Cannula 3.0 95 97.7 05/30/17 20:00 69 05/30/17 19:25 96 Nasal Cannula 3.0 32 05/30/17 19:25 Nasal Cannula 3.0 32 05/30/17 17:34 74 114/90 05/30/17 16:00 104 05/30/17 16:00 97.0 74 20 114/90 100 Nasal Cannula 3.0 96 97.0 Intake and Output 05/30/17 05/31/17 19:00 07:00 Intake Total 700 ml Output Total 1400 ml Balance 700 ml -1400 ml Intake Oral 700 ml Output Urine Total 1400 ml # Voids 4 Laboratory Tests 05/31/17 00:40: Urine Color Pale yellow, Urine Appearance Clear, Urine pH 6.5, Urine Specific [place] 1.010, Urine Protein Negative, Urine Glucose (UA) Negative, Urine Ketones Negative, Urine Occult Blood 1+H, Urine Nitrite Negative, Urine Bilirubin Negative, Urine Urobilinogen Normal, Urine Leukocyte Esterase Negative , Urine RBC 0-2H, Urine WBC 0, Urine Squamous Epithelial Cells Few, Urine Bacteria None, Urine Eosinophils None seen, Urine Random Creatinine [Pending], Urine Random Microalbumin [Pending], Urine Random Total Protein 10, Urine Random Sodium 93, Urine Creatinine 12.6L, Urine Microalbumin/Creatinine Ratio [ Pending], Urine Opiates Screen Negative, Urine Barbiturates Screen Negative, Phencyclidine (PCP) Screen Negative, Urine Amphetamines Screen Negative, Urine Benzodiazepines Screen Negative, Urine Cocaine Screen Negative, Urine Marijuana (THC) Screen Negative 05/31/17 08:00: White Blood Count 7.1, Red Blood Count 2.82L, Hemoglobin 11.0L, Hematocrit 34.1L , Mean Corpuscular Volume 121H, Mean Corpuscular Hemoglobin 38.8H, Mean Corpuscular Hemoglobin Concent 32.1, Red Cell Distribution Width 19.2H, Platelet Count 182, Mean Platelet Volume 8.6, Neutrophils (%) (Auto) , Lymphocytes (%) (Auto) , Monocytes (%) (Auto) , Eosinophils (%) (Auto) , Basophils (%) (Auto) , Differential Total Cells Counted 100, Neutrophils % ( Manual) 28L, Lymphocytes % (Manual) 61H, Monocytes % (Manual) 11H, Eosinophils % (Manual) 0, Basophils % (Manual) 0, Band Neutrophils 0, Platelet Estimate Adequate, Platelet Morphology Normal, Polychromasia 1+, Anisocytosis 1+, Macrocytosis 2+, Target Cells Occasional, Prothrombin Time 22.3H, Prothromb Time International Ratio 2.1H, Sodium Level 141, Potassium Level 4.0, Chloride Level 101, Carbon Dioxide Level 33H, Anion Gap 7, Blood Urea Nitrogen 50H, Creatinine 2.9H, Estimat Glomerular Filtration Rate 27.0, Glucose Level 139H, Calcium Level 8.8, Phosphorus Level 3.9, Troponin I 0.117H Height (Feet): 6 Height (Inches): 1.00 Weight (Pounds): 246 General Appearance: lethargic EENT: normal ENT inspection Neck: normal alignment Cardiovascular: normal peripheral pulses, normal rate, regular rhythm Respiratory/Chest: decreased breath sounds Abdomen: normal bowel sounds, non tender, soft Extremities: normal inspection Edema: 1+ Arm (L), 1+ Arm (R), 1+ Leg (L), 1+ Leg (R), 1+ Pedal (L), 1+ Pedal ( R), 1+ Generalized Edema: trace edema Neurologic: motor weakness Skin: normal pigmentation, warm/dry RAMESH SHUKLA May 31, 2017 14:37
--- NOTE | 2017-05-31 14:54 | Pulmonology Progress Note ---
Assessment/Plan Problems: (1) Congestive heart failure (2) Acute bronchitis (3) EF 15% (4) HIV (human immunodeficiency virus infection) (5) Hepatitis C Assessment/Plan doing better diuresing gradually check electrolytes f/u cardiology recommendations doing better Subjective ROS Limited/Unobtainable: No Interval Events: doing better Allergies: Coded Allergies: No Known Allergies (Unverified , 05/29/17) Objective Last 24 Hour Vital Signs Date Time Temp Pulse Resp B/P (MAP) Pulse Ox O2 Delivery O2 Flow Rate FiO2 05/31/17 12:00 99 05/31/17 12:00 97.5 99 21 100/68 92 Nasal Cannula 3.0 97.5 05/31/17 08:40 75 117/76 05/31/17 08:30 96 Nasal Cannula 3.0 32 05/31/17 08:30 Nasal Cannula 3.0 32 05/31/17 08:00 97.2 75 20 117/76 92 Nasal Cannula 3.0 95 97.2 05/31/17 08:00 118 05/31/17 04:00 73 05/31/17 04:00 96.4 100 19 106/61 96 Nasal Cannula 3.0 95 96.4 05/31/17 00:00 69 05/31/17 00:00 96.7 116 22 99/64 98 Nasal Cannula 3.0 95 96.7 05/30/17 20:00 97.7 71 22 104/60 100 Nasal Cannula 3.0 95 97.7 05/30/17 20:00 69 05/30/17 19:25 96 Nasal Cannula 3.0 32 05/30/17 19:25 Nasal Cannula 3.0 32 05/30/17 17:34 74 114/90 05/30/17 16:00 104 05/30/17 16:00 97.0 74 20 114/90 100 Nasal Cannula 3.0 96 97.0 Intake and Output 05/30/17 05/31/17 19:00 07:00 Intake Total 700 ml Output Total 1400 ml Balance 700 ml -1400 ml Intake Oral 700 ml Output Urine Total 1400 ml # Voids 4 Objective General Appearance: WD/WN Lines, tubes and drains: peripheral HEENT: normocephalic Neck: non-tender Respiratory/Chest: chest wall non-tender, lungs clear Breasts: no masses Cardiovascular/Chest: normal peripheral pulses Abdomen: normal bowel sounds Genitourinary/Rectal: normal genital exam Skin Exam: normal pigmentation Neurologic: puller over II-XII grossly normal Microbiology Date/Time Source Procedure Growth Status 05/29/17 20:45 Nasal Nares MRSA Culture - Final NO METHICILLIN RESISTANT STAPH AUREUS... Complete 05/29/17 20:45 Rectum VRE Culture - Final NO VANCOMYCIN RESISTANT ENTEROCOCCUS ... Complete Laboratory Tests 05/31/17 00:40: Urine Color Pale yellow, Urine Appearance Clear, Urine pH 6.5, Urine Specific [place] 1.010, Urine Protein Negative, Urine Glucose (UA) Negative, Urine Ketones Negative, Urine Occult Blood 1+H, Urine Nitrite Negative, Urine Bilirubin Negative, Urine Urobilinogen Normal, Urine Leukocyte Esterase Negative , Urine RBC 0-2H, Urine WBC 0, Urine Squamous Epithelial Cells Few, Urine Bacteria None, Urine Eosinophils None seen, Urine Random Creatinine [Pending], Urine Random Microalbumin [Pending], Urine Random Total Protein 10, Urine Random Sodium 93, Urine Creatinine 12.6L, Urine Microalbumin/Creatinine Ratio [ Pending], Urine Opiates Screen Negative, Urine Barbiturates Screen Negative, Phencyclidine (PCP) Screen Negative, Urine Amphetamines Screen Negative, Urine Benzodiazepines Screen Negative, Urine Cocaine Screen Negative, Urine Marijuana (THC) Screen Negative 05/31/17 08:00: White Blood Count 7.1, Red Blood Count 2.82L, Hemoglobin 11.0L, Hematocrit 34.1L , Mean Corpuscular Volume 121H, Mean Corpuscular Hemoglobin 38.8H, Mean Corpuscular Hemoglobin Concent 32.1, Red Cell Distribution Width 19.2H, Platelet Count 182, Mean Platelet Volume 8.6, Neutrophils (%) (Auto) , Lymphocytes (%) (Auto) , Monocytes (%) (Auto) , Eosinophils (%) (Auto) , Basophils (%) (Auto) , Differential Total Cells Counted 100, Neutrophils % ( Manual) 28L, Lymphocytes % (Manual) 61H, Monocytes % (Manual) 11H, Eosinophils % (Manual) 0, Basophils % (Manual) 0, Band Neutrophils 0, Platelet Estimate Adequate, Platelet Morphology Normal, Polychromasia 1+, Anisocytosis 1+, Macrocytosis 2+, Target Cells Occasional, Prothrombin Time 22.3H, Prothromb Time International Ratio 2.1H, Sodium Level 141, Potassium Level 4.0, Chloride Level 101, Carbon Dioxide Level 33H, Anion Gap 7, Blood Urea Nitrogen 50H, Creatinine 2.9H, Estimat Glomerular Filtration Rate 27.0, Glucose Level 139H, Calcium Level 8.8, Phosphorus Level 3.9, Troponin I 0.117H Current Medications Medications (Trade) Dose Ordered Sig/Kane Route PRN Reason Start Time Stop Time Status Last Admin Dose Admin Acetaminophen (Tylenol) 650 mg Q4H PRN ORAL Fever 05/29/17 20:00 06/28/17 19:59 Albuterol/ Ipratropium (Albuterol/ Ipratropium) 3 ml Q4H PRN HHN Shortness of Breath 05/29/17 20:00 06/03/17 19:59 Atorvastatin Calcium (Lipitor) 40 mg BEDTIME ORAL 05/29/17 21:00 06/28/17 20:59 05/30/17 22:08 Carvedilol (Coreg) 6.25 mg BID ORAL 05/30/17 09:00 06/29/17 08:59 05/31/17 08:40 Dextrose (Dextrose 50%) STAT PRN IV Hypoglycemia 05/29/17 20:00 06/28/17 19:59 Dolutegravir Sodium (Tivicay) 50 mg DAILY ORAL 05/30/17 09:00 06/29/17 08:59 05/31/17 08:40 Furosemide (Lasix) 40 mg EVERY 8 HOURS IV 05/29/17 22:00 06/28/17 21:59 05/31/17 13:07 Gabapentin (Neurontin) 300 mg EVERY 6 HOURS ORAL 05/30/17 00:00 06/29/17 00:00 05/31/17 13:07 Heparin Sodium (Porcine) (Heparin 5000 units/ml) 5,000 units EVERY 12 HOURS SUBQ 05/29/17 21:00 06/28/17 20:59 05/31/17 08:41 Levofloxacin 50 ml @ 50 mls/hr Q24H IVPB 05/31/17 14:00 06/07/17 13:59 05/31/17 13:04 Metolazone (Zaroxolyn) 5 mg DAILY ORAL 05/30/17 14:00 06/29/17 13:59 05/31/17 08:39 Metoprolol Tartrate (Lopressor) 5 mg Q5MIN X 3 IVP 05/30/17 08:00 06/29/17 07:59 05/30/17 09:25 Ondansetron HCl (Zofran) 4 mg Q6H PRN IVP Nausea & Vomiting 05/29/17 20:00 06/28/17 19:59 Polyethylene Glycol (Miralax) 17 gm DAILYPRN PRN ORAL Constipation 05/29/17 20:00 06/28/17 19:59 Promethazine HCl/ Codeine (Phenergan with Codeine) 5 ml Q4H PRN ORAL For Cough 05/29/17 22:00 06/28/17 21:59 05/29/17 22:10 Temazepam (Restoril) 15 mg HSPRN PRN ORAL Insomnia 05/29/17 20:00 06/05/17 19:59 Warfarin Sodium (Coumadin per pharmacy) 1 ea DAILYPRN PRN MISC Per rx protocol 05/30/17 09:00 06/29/17 08:59 Warfarin Sodium (Coumadin) 3 mg COUMADIN ORAL 05/30/17 17:00 06/04/17 16:59 05/30/17 17:34 Alise Hodge MD May 31, 2017 14:54
--- NOTE | 2017-05-31 15:50 | Nephrology Progress Note ---
Assessment/Plan Assessment 1. Acute renal failure. The etiology of acute renal failure including cardiorenal syndrome. 2. Chronic kidney disease. 3. Congestive heart failure exacerbation. 4. Fluid overload. 5. Congestive heart failure. Plan PLAN to continue lasix fallow up with urine study daily wt check in and out put avoid NSAID check us of kidney Subjective Constitutional: Reports: no symptoms HEENT: Reports: no symptoms Genitourinary: Reports: no symptoms Neurologic/Psychiatric: Reports: no symptoms Subjective alert and awake feeling better increase urination less SOB Objective Objective Last 24 Hour Vital Signs Date Time Temp Pulse Resp B/P (MAP) Pulse Ox O2 Delivery O2 Flow Rate FiO2 05/31/17 12:00 99 05/31/17 12:00 97.5 99 21 100/68 92 Nasal Cannula 3.0 97.5 05/31/17 08:40 75 117/76 05/31/17 08:30 96 Nasal Cannula 3.0 32 05/31/17 08:30 Nasal Cannula 3.0 32 05/31/17 08:00 97.2 75 20 117/76 92 Nasal Cannula 3.0 95 97.2 05/31/17 08:00 118 05/31/17 04:00 73 05/31/17 04:00 96.4 100 19 106/61 96 Nasal Cannula 3.0 95 96.4 05/31/17 00:00 69 05/31/17 00:00 96.7 116 22 99/64 98 Nasal Cannula 3.0 95 96.7 05/30/17 20:00 97.7 71 22 104/60 100 Nasal Cannula 3.0 95 97.7 05/30/17 20:00 69 05/30/17 19:25 96 Nasal Cannula 3.0 32 05/30/17 19:25 Nasal Cannula 3.0 32 05/30/17 17:34 74 114/90 05/30/17 16:00 104 05/30/17 16:00 97.0 74 20 114/90 100 Nasal Cannula 3.0 96 97.0 Intake and Output 05/30/17 05/31/17 19:00 07:00 Intake Total 700 ml Output Total 1400 ml Balance 700 ml -1400 ml Intake Oral 700 ml Output Urine Total 1400 ml # Voids 4 Laboratory Tests 05/31/17 00:40: Urine Color Pale yellow, Urine Appearance Clear, Urine pH 6.5, Urine Specific [place] 1.010, Urine Protein Negative, Urine Glucose (UA) Negative, Urine Ketones Negative, Urine Occult Blood 1+H, Urine Nitrite Negative, Urine Bilirubin Negative, Urine Urobilinogen Normal, Urine Leukocyte Esterase Negative , Urine RBC 0-2H, Urine WBC 0, Urine Squamous Epithelial Cells Few, Urine Bacteria None, Urine Eosinophils None seen, Urine Random Creatinine [Pending], Urine Random Microalbumin [Pending], Urine Random Total Protein 10, Urine Random Sodium 93, Urine Creatinine 12.6L, Urine Microalbumin/Creatinine Ratio [ Pending], Urine Opiates Screen Negative, Urine Barbiturates Screen Negative, Phencyclidine (PCP) Screen Negative, Urine Amphetamines Screen Negative, Urine Benzodiazepines Screen Negative, Urine Cocaine Screen Negative, Urine Marijuana (THC) Screen Negative 05/31/17 08:00: White Blood Count 7.1, Red Blood Count 2.82L, Hemoglobin 11.0L, Hematocrit 34.1L , Mean Corpuscular Volume 121H, Mean Corpuscular Hemoglobin 38.8H, Mean Corpuscular Hemoglobin Concent 32.1, Red Cell Distribution Width 19.2H, Platelet Count 182, Mean Platelet Volume 8.6, Neutrophils (%) (Auto) , Lymphocytes (%) (Auto) , Monocytes (%) (Auto) , Eosinophils (%) (Auto) , Basophils (%) (Auto) , Differential Total Cells Counted 100, Neutrophils % ( Manual) 28L, Lymphocytes % (Manual) 61H, Monocytes % (Manual) 11H, Eosinophils % (Manual) 0, Basophils % (Manual) 0, Band Neutrophils 0, Platelet Estimate Adequate, Platelet Morphology Normal, Polychromasia 1+, Anisocytosis 1+, Macrocytosis 2+, Target Cells Occasional, Prothrombin Time 22.3H, Prothromb Time International Ratio 2.1H, Sodium Level 141, Potassium Level 4.0, Chloride Level 101, Carbon Dioxide Level 33H, Anion Gap 7, Blood Urea Nitrogen 50H, Creatinine 2.9H, Estimat Glomerular Filtration Rate 27.0, Glucose Level 139H, Calcium Level 8.8, Phosphorus Level 3.9, Troponin I 0.117H Height (Feet): 6 Height (Inches): 1.00 Weight (Pounds): 246 Objective HEAD AND NECK: No JVP. No LAD. No thyromegaly. Extraocular movements intact. Pupils are reactive to light and accommodation. LUNGS: Decreased breathing sounds on both sides. CARDIAC: Regular rate and rhythm. S1 and S2. No murmur. No rub. ABDOMEN: Soft, nontender, and nondistended. EXTREMITIES: 4+ edema. No clubbing. No cyanosis. MARGARITO MARTIN May 31, 2017 15:49
[2017-05-31 16:00] VITALS: BP 107/65
[2017-05-31] MEDS: Warfarin Sodium 3mg ORAL SCH (17:28)
[2017-05-31 20:00] VITALS: BP 100/50
[2017-05-31] MEDS: Atorvastatin 20mg tab ORAL SCH (21:28)
[2017-06-01] VITALS: BP 95/48
[2017-06-01 04:00] VITALS: BP 118/63
[2017-06-01 08:00] VITALS: BP 97/48
[2017-06-01 08:46] LABS: HEMATOCRIT 35.3 % (42.0-52.0); HEMOGLOBIN 11.4 G/DL (14.2-18.0); MEAN CORPUSCULAR VOLUME 120 FL (80-99); PLATELET COUNT 213 K/UL (150-450); RED BLOOD COUNT 2.94 M/UL (4.70-6.10); RED CELL DISTRIBUTION WIDTH 18.2 % (11.6-14.8)
[2017-06-01 08:47] LABS: INR 1.9 (0.9-1.1)
--- NOTE | 2017-06-01 08:57 | Diagnostic Imaging Report ---
Indication: Acute renal failure Technique: Grayscale and duplex images of the kidneys, retroperitoneum, and bladder were obtained. Comparison: none Findings: Right kidney measures 10.3 cm in length. Left kidney measures 8.5 cm in length. Both kidneys demonstrate normal echogenicity. No hydronephrosis. . Left kidney demonstrates contour lobulation and an 8 mm parapelvic cyst. Normal inferior vena cava. Bladder is normal. However, the patient was unable to void, bladder volume is 244 mL Incidentally noted is a small amount of ascites fluid. There is also a right-sided pleural effusion Impression: Negative for hydronephrosis Patient unable to void with bladder volume of 244 mL Incidental finding small left renal cyst Ascites and right pleural effusion
[2017-06-01 08:59] LABS: ANION GAP 5 mmol/L (5-15); BLOOD UREA NITROGEN 46 mg/dL (7-18); CARBON DIOXIDE 37 MMOL/L (21-32); CHLORIDE 97 MMOL/L (98-107); POTASSIUM 3.4 MMOL/L (3.5-5.1); SODIUM 139 MMOL/L (136-145)
[2017-06-01] MEDS: Carvedilol 6.25mg Tab ORAL SCH ×2 (09:00→17:49)
[2017-06-01] MEDS: Dolutegravir Sodium 50mg tab ORAL SCH (09:09)
[2017-06-01] MEDS: Heparin 5000 units/ml inj SUBQ SCH ×2 (09:10→20:58)
[2017-06-01 09:24] LABS: CALCIUM 9.5 MG/DL (8.5-10.1)
[2017-06-01 12:00] VITALS: BP 103/58
[2017-06-01] MEDS ORDERED: EMTRIVA ORAL SCH (12:00)
[2017-06-01] MEDS: Levofloxacin 250mg/D5W 50ml IVPB SCH (13:23)
--- NOTE | 2017-06-01 14:39 | Nephrology Progress Note ---
Assessment/Plan Assessment 1. Acute renal failure. The etiology of acute renal failure including cardiorenal syndrome. 2. Chronic kidney disease. 3. Congestive heart failure exacerbation. 4. Fluid overload. 5. Congestive heart failure. Plan PLAN to continue lasix fallow up with urine study daily wt check in and out put avoid NSAID check us of kidney Subjective Subjective alert and awake feeling better increase urination less SOB Objective Objective Last 24 Hour Vital Signs Date Time Temp Pulse Resp B/P (MAP) Pulse Ox O2 Delivery O2 Flow Rate FiO2 06/01/17 08:00 97.7 67 19 97/48 97 97.7 06/01/17 08:00 67 06/01/17 07:13 94 Nasal Cannula 3.0 32 06/01/17 07:13 64 20 Nasal Cannula 3.0 32 06/01/17 07:13 Nasal Cannula 3.0 32 06/01/17 04:00 61 06/01/17 04:00 97.0 59 16 118/63 98 97.0 06/01/17 00:00 64 06/01/17 00:00 97.7 60 20 95/48 90 97.7 05/31/17 20:01 Nasal Cannula 3.0 32 05/31/17 20:00 65 05/31/17 20:00 95 Nasal Cannula 3.0 32 05/31/17 20:00 98.4 66 16 100/50 98 98.4 05/31/17 17:27 106 107/65 05/31/17 16:00 97.8 106 20 107/65 94 Nasal Cannula 3.0 97.8 05/31/17 16:00 103 Intake and Output 05/31/17 06/01/17 19:00 07:00 Intake Total 810 ml Output Total 2400 ml 4600 ml Balance -1590 ml -4600 ml Intake Oral 760 ml IV Total 50 ml Output Urine Total 2400 ml 4600 ml Laboratory Tests 06/01/17 07:40: White Blood Count 7.0, Red Blood Count 2.94L, Hemoglobin 11.4L, Hematocrit 35.3L , Mean Corpuscular Volume 120H, Mean Corpuscular Hemoglobin 38.7H, Mean Corpuscular Hemoglobin Concent 32.2, Red Cell Distribution Width 18.2H, Platelet Count 213, Mean Platelet Volume 9.7, Neutrophils (%) (Auto) , Lymphocytes (%) (Auto) , Monocytes (%) (Auto) , Eosinophils (%) (Auto) , Basophils (%) (Auto) , Differential Total Cells Counted 100, Neutrophils % ( Manual) 27L, Lymphocytes % (Manual) 63H, Monocytes % (Manual) 10, Eosinophils % (Manual) 0, Basophils % (Manual) 0, Band Neutrophils 0, Platelet Estimate Adequate, Platelet Morphology Normal, Polychromasia 1+, Anisocytosis 1+, Macrocytosis 2+, Target Cells Occasional, Prothrombin Time 19.6H, Prothromb Time International Ratio 1.9H, Sodium Level 139, Potassium Level 3.4L, Chloride Level 97L, Carbon Dioxide Level 37H, Anion Gap 5, Blood Urea Nitrogen 46H, Creatinine 3.0H, Estimat Glomerular Filtration Rate 26.1, Glucose Level 90, Calcium Level 9.5 Height (Feet): 6 Height (Inches): 1.00 Weight (Pounds): 233 Objective HEAD AND NECK: No JVP. No LAD. No thyromegaly. Extraocular movements intact. Pupils are reactive to light and accommodation. LUNGS: Decreased breathing sounds on both sides. CARDIAC: Regular rate and rhythm. S1 and S2. No murmur. No rub. ABDOMEN: Soft, nontender, and nondistended. EXTREMITIES: 4+ edema. No clubbing. No cyanosis. MARGARITO MARTIN Jun 01, 2017 14:38
--- NOTE | 2017-06-01 15:10 | General Progress Note ---
Assessment/Plan Problem List: (1) Anemia ICD Codes: D64.9 - Anemia, unspecified SNOMED: 365701065 (2) SOB (shortness of breath) ICD Codes: R06.02 - Shortness of breath SNOMED: 664806188 (3) HTN (hypertension) ICD Codes: I10 - Essential (primary) hypertension SNOMED: 37247757 (4) Edema ICD Codes: R60.9 - Edema, unspecified SNOMED: 338801653, 564055292 (5) Anasarca ICD Codes: R60.1 - Generalized edema SNOMED: 485130676, 903430427 (6) Renal failure ICD Codes: N19 - Unspecified kidney failure SNOMED: 91819700 Qualifiers: Qualified Codes: N17.9 - Acute kidney failure, unspecified; N18.3 - Chronic kidney disease, stage 3 (moderate) (7) HIV (human immunodeficiency virus infection) ICD Codes: B20 - Human immunodeficiency virus [HIV] disease SNOMED: 73955844 (8) NSTEMI (non-ST elevated myocardial infarction) ICD Codes: I21.4 - Non-ST elevation (NSTEMI) myocardial infarction SNOMED: 691549097, 450798284 (9) Congestive heart failure ICD Codes: I50.9 - Heart failure, unspecified SNOMED: 25797512 Qualifiers: Qualified Codes: I50.23 - Acute on chronic systolic (congestive) heart failure Status: unchanged Assessment/Plan o2 pul tx ot pt diet bp control cbc bmp am dc plan w hh Subjective Constitutional: Reports: weakness Allergies: Coded Allergies: No Known Allergies (Unverified , 05/29/17) All Systems: reviewed and negative except above Subjective o2nc sleepy in bed Objective Last 24 Hour Vital Signs Date Time Temp Pulse Resp B/P (MAP) Pulse Ox O2 Delivery O2 Flow Rate FiO2 06/01/17 08:00 97.7 67 19 97/48 97 97.7 06/01/17 08:00 67 06/01/17 07:13 94 Nasal Cannula 3.0 32 06/01/17 07:13 64 20 Nasal Cannula 3.0 32 06/01/17 07:13 Nasal Cannula 3.0 32 06/01/17 04:00 61 06/01/17 04:00 97.0 59 16 118/63 98 97.0 06/01/17 00:00 64 06/01/17 00:00 97.7 60 20 95/48 90 97.7 05/31/17 20:01 Nasal Cannula 3.0 32 05/31/17 20:00 65 05/31/17 20:00 95 Nasal Cannula 3.0 32 05/31/17 20:00 98.4 66 16 100/50 98 98.4 05/31/17 17:27 106 107/65 05/31/17 16:00 97.8 106 20 107/65 94 Nasal Cannula 3.0 97.8 05/31/17 16:00 103 Intake and Output 05/31/17 06/01/17 19:00 07:00 Intake Total 810 ml Output Total 2400 ml 4600 ml Balance -1590 ml -4600 ml Intake Oral 760 ml IV Total 50 ml Output Urine Total 2400 ml 4600 ml Laboratory Tests 06/01/17 07:40: White Blood Count 7.0, Red Blood Count 2.94L, Hemoglobin 11.4L, Hematocrit 35.3L , Mean Corpuscular Volume 120H, Mean Corpuscular Hemoglobin 38.7H, Mean Corpuscular Hemoglobin Concent 32.2, Red Cell Distribution Width 18.2H, Platelet Count 213, Mean Platelet Volume 9.7, Neutrophils (%) (Auto) , Lymphocytes (%) (Auto) , Monocytes (%) (Auto) , Eosinophils (%) (Auto) , Basophils (%) (Auto) , Differential Total Cells Counted 100, Neutrophils % ( Manual) 27L, Lymphocytes % (Manual) 63H, Monocytes % (Manual) 10, Eosinophils % (Manual) 0, Basophils % (Manual) 0, Band Neutrophils 0, Platelet Estimate Adequate, Platelet Morphology Normal, Polychromasia 1+, Anisocytosis 1+, Macrocytosis 2+, Target Cells Occasional, Prothrombin Time 19.6H, Prothromb Time International Ratio 1.9H, Sodium Level 139, Potassium Level 3.4L, Chloride Level 97L, Carbon Dioxide Level 37H, Anion Gap 5, Blood Urea Nitrogen 46H, Creatinine 3.0H, Estimat Glomerular Filtration Rate 26.1, Glucose Level 90, Calcium Level 9.5 Height (Feet): 6 Height (Inches): 1.00 Weight (Pounds): 233 General Appearance: alert EENT: normal ENT inspection Neck: normal alignment Cardiovascular: normal peripheral pulses, normal rate, regular rhythm Respiratory/Chest: chest wall non-tender, decreased breath sounds Abdomen: normal bowel sounds, non tender, soft Extremities: normal inspection Edema: 1+ Arm (L), 1+ Arm (R), 1+ Leg (L), 1+ Leg (R), 1+ Pedal (L), 1+ Pedal ( R), 1+ Generalized Edema: mild edema Neurologic: responsive, motor weakness Skin: normal pigmentation, warm/dry RAMESH SHUKLA Jun 01, 2017 15:10
--- NOTE | 2017-06-01 15:50 | Pulmonology Progress Note ---
Assessment/Plan Problems: (1) EF 15% (2) Congestive heart failure (3) Acute bronchitis (4) HIV (human immunodeficiency virus infection) (5) Hepatitis C Assessment/Plan doing better diuresing gradually check electrolytes f/u cardiology recommendations doing better med/surg resume hiv meds Subjective Interval Events: diureseing well Allergies: Coded Allergies: No Known Allergies (Unverified , 05/29/17) Objective Last 24 Hour Vital Signs Date Time Temp Pulse Resp B/P (MAP) Pulse Ox O2 Delivery O2 Flow Rate FiO2 06/01/17 08:00 97.7 67 19 97/48 97 97.7 06/01/17 08:00 67 06/01/17 07:13 94 Nasal Cannula 3.0 32 06/01/17 07:13 64 20 Nasal Cannula 3.0 32 06/01/17 07:13 Nasal Cannula 3.0 32 06/01/17 04:00 61 06/01/17 04:00 97.0 59 16 118/63 98 97.0 06/01/17 00:00 64 06/01/17 00:00 97.7 60 20 95/48 90 97.7 05/31/17 20:01 Nasal Cannula 3.0 32 05/31/17 20:00 65 05/31/17 20:00 95 Nasal Cannula 3.0 32 05/31/17 20:00 98.4 66 16 100/50 98 98.4 05/31/17 17:27 106 107/65 05/31/17 16:00 97.8 106 20 107/65 94 Nasal Cannula 3.0 97.8 05/31/17 16:00 103 Intake and Output 05/31/17 06/01/17 19:00 07:00 Intake Total 810 ml Output Total 2400 ml 4600 ml Balance -1590 ml -4600 ml Intake Oral 760 ml IV Total 50 ml Output Urine Total 2400 ml 4600 ml Objective General Appearance: WD/WN Lines, tubes and drains: peripheral HEENT: normocephalic Neck: non-tender Respiratory/Chest: chest wall non-tender, lungs clear Breasts: no masses Cardiovascular/Chest: normal peripheral pulses Abdomen: normal bowel sounds Genitourinary/Rectal: normal genital exam Skin Exam: normal pigmentation Neurologic: user experience architect II-XII grossly normal Microbiology Date/Time Source Procedure Growth Status 05/29/17 20:45 Nasal Nares MRSA Culture - Final NO METHICILLIN RESISTANT STAPH AUREUS... Complete 05/29/17 20:45 Rectum VRE Culture - Final NO VANCOMYCIN RESISTANT ENTEROCOCCUS ... Complete Laboratory Tests 06/01/17 07:40: White Blood Count 7.0, Red Blood Count 2.94L, Hemoglobin 11.4L, Hematocrit 35.3L , Mean Corpuscular Volume 120H, Mean Corpuscular Hemoglobin 38.7H, Mean Corpuscular Hemoglobin Concent 32.2, Red Cell Distribution Width 18.2H, Platelet Count 213, Mean Platelet Volume 9.7, Neutrophils (%) (Auto) , Lymphocytes (%) (Auto) , Monocytes (%) (Auto) , Eosinophils (%) (Auto) , Basophils (%) (Auto) , Differential Total Cells Counted 100, Neutrophils % ( Manual) 27L, Lymphocytes % (Manual) 63H, Monocytes % (Manual) 10, Eosinophils % (Manual) 0, Basophils % (Manual) 0, Band Neutrophils 0, Platelet Estimate Adequate, Platelet Morphology Normal, Polychromasia 1+, Anisocytosis 1+, Macrocytosis 2+, Target Cells Occasional, Prothrombin Time 19.6H, Prothromb Time International Ratio 1.9H, Sodium Level 139, Potassium Level 3.4L, Chloride Level 97L, Carbon Dioxide Level 37H, Anion Gap 5, Blood Urea Nitrogen 46H, Creatinine 3.0H, Estimat Glomerular Filtration Rate 26.1, Glucose Level 90, Calcium Level 9.5 Current Medications Medications (Trade) Dose Ordered Sig/Kane Route PRN Reason Start Time Stop Time Status Last Admin Dose Admin Acetaminophen (Tylenol) 650 mg Q4H PRN ORAL Fever 05/29/17 20:00 06/28/17 19:59 Albuterol/ Ipratropium (Albuterol/ Ipratropium) 3 ml Q4H PRN HHN Shortness of Breath 05/29/17 20:00 06/03/17 19:59 Atorvastatin Calcium (Lipitor) 40 mg BEDTIME ORAL 05/29/17 21:00 06/28/17 20:59 05/31/17 21:28 Carvedilol (Coreg) 6.25 mg BID ORAL 05/30/17 09:00 06/29/17 08:59 05/31/17 17:27 Dextrose (Dextrose 50%) STAT PRN IV Hypoglycemia 05/29/17 20:00 06/28/17 19:59 Furosemide (Lasix) 40 mg EVERY 8 HOURS IV 05/29/17 22:00 06/28/17 21:59 06/01/17 06:00 Gabapentin (Neurontin) 300 mg EVERY 6 HOURS ORAL 05/30/17 00:00 06/29/17 00:00 06/01/17 12:03 Heparin Sodium (Porcine) (Heparin 5000 units/ml) 5,000 units EVERY 12 HOURS SUBQ 05/29/17 21:00 06/28/17 20:59 06/01/17 09:10 Levofloxacin 50 ml @ 50 mls/hr Q24H IVPB 05/31/17 14:00 06/07/17 13:59 06/01/17 13:23 Metolazone (Zaroxolyn) 5 mg DAILY ORAL 05/30/17 14:00 06/29/17 13:59 06/01/17 09:09 Metoprolol Tartrate (Lopressor) 5 mg Q5MIN X 3 IVP 05/30/17 08:00 06/29/17 07:59 05/30/17 09:25 Ondansetron HCl (Zofran) 4 mg Q6H PRN IVP Nausea & Vomiting 05/29/17 20:00 06/28/17 19:59 Patient Own Medication (Patient's Own Med) 1 ea DAILY ORAL 06/02/17 09:00 07/02/17 08:59 Patient Own Medication (Patient's Own Med) 1 ea QOD ORAL 06/01/17 12:00 07/01/17 11:59 06/01/17 12:03 Polyethylene Glycol (Miralax) 17 gm DAILYPRN PRN ORAL Constipation 05/29/17 20:00 06/28/17 19:59 Promethazine HCl/ Codeine (Phenergan with Codeine) 5 ml Q4H PRN ORAL For Cough 05/29/17 22:00 06/28/17 21:59 05/29/17 22:10 Temazepam (Restoril) 15 mg HSPRN PRN ORAL Insomnia 05/29/17 20:00 06/05/17 19:59 Warfarin Sodium (Coumadin per pharmacy) 1 ea DAILYPRN PRN MISC Per rx protocol 3/19/18 09:00 06/29/17 08:59 Warfarin Sodium (Coumadin) 4 mg COUMADIN ONCE PO 06/01/17 17:00 06/01/17 17:01 Zidovudine (Retrovir) 300 mg BID ORAL 06/01/17 18:00 07/01/17 17:59 Alise Hodge MD Jun 01, 2017 15:50
[2017-06-01 16:00] VITALS: BP 100/62
[2017-06-01] MEDS ORDERED: Warfarin Sodium 4mg PO ONE (17:00)
[2017-06-01] MEDS ORDERED: Zidovudine 100mg cap ORAL SCH (18:00)
[2017-06-01 20:00] VITALS: BP 95/64
--- NOTE | 2017-06-01 20:06 | Cardiology Report ---
APPROVED REPORT EXAM: Two-dimensional and M-mode echocardiogram with Doppler and color Doppler. INDICATION LV function M-Mode DIMENSIONS IVSd1.2 (0.7-1.1cm)Left Atrium (MM)4.2 (1.6-4.0cm) LVDd8.2 (3.5-5.6cm)Aortic Root3.4 (2.0-3.7cm) PWd1.3 (0.7-1.1cm)Aortic Cusp Exc.2.1 (1.5-2.0cm) LVDs7.7 (2.5-4.0cm) PWs1.6 cm Severe left ventricular enlargement. Possible apical thrombus. Severe global left ventricular hypokinesis. Septal dyskinesis. Ischemia cardiomyopathy can not be excluded. Left ventricular ejection fraction estimated to be less than 10 %. Increased E point-interventricular septal separation c/w left ventricular dysfunction. No evidence of pericardial effusion. Moderate bi-atrial enlargement. Moderate right ventricular enlargement. Focal aortic valve sclerosis with adequate cusp excursion. Thickened mitral valve leaflets with normal excursion. Mitral annulus and aortic root calcification. Normal pulmonic valve structure. Normal tricuspid valve structure. IVC dilated at 3.2 cm without physiologic collapse suggestive of RA pressure at least 20 mmHg. Pacemaker wire present in the right side chambers. A color flow and spectral Doppler study was performed and revealed: Mild aortic regurgitation. Moderate to severe mitral regurgitation. Mitral inflow velocities indicates possible pseudo normalization pattern implying moderately elevated left atrial pressure (Grade II ). Moderate tricuspid regurgitation. Tricuspid systolic velocities suggests peak right ventricular systolic pressure of 60 mmHg, consistent with severe pulmonary hypertension. Mild pulmonic regurgitation present.
[2017-06-01] MEDS: Atorvastatin 20mg tab ORAL SCH (20:56)
[2017-06-02] VITALS: BP 111/59
[2017-06-02] MEDS ORDERED: Metoprolol 5mg/5ml Inj IVP SCH (01:00)
[2017-06-02] MEDS ORDERED: Promethazine/Codeine 5ml UD ORAL PRN (02:00)
[2017-06-02 04:00] VITALS: BP 106/47
[2017-06-02] MEDS ORDERED: Albuterol/Ipratropium 3ml neb HHN PRN (04:00)
[2017-06-02 08:00] VITALS: BP 115/62
[2017-06-02 08:49] LABS: HEMATOCRIT 31.8 % (42.0-52.0); HEMOGLOBIN 10.3 G/DL (14.2-18.0); MEAN CORPUSCULAR VOLUME 120 FL (80-99); PLATELET COUNT 203 K/UL (150-450); RED BLOOD COUNT 2.65 M/UL (4.70-6.10); RED CELL DISTRIBUTION WIDTH 18.5 % (11.6-14.8); WHITE BLOOD COUNT 6.3 K/UL (4.8-10.8)
[2017-06-02 09:00] LABS: ANION GAP 5 mmol/L (5-15); BLOOD UREA NITROGEN 44 mg/dL (7-18); CALCIUM 8.9 MG/DL (8.5-10.1); CARBON DIOXIDE 38 MMOL/L (21-32); CHLORIDE 97 MMOL/L (98-107); CREATININE 2.6 MG/DL (0.55-1.30); SODIUM 140 MMOL/L (136-145)
[2017-06-02] MEDS ORDERED: TIVICAY 50 MG ORAL SCH (09:00)
[2017-06-02] MEDS: TIVICAY 50 MG ORAL SCH (09:37)
[2017-06-02] MEDS: Carvedilol 6.25mg Tab ORAL SCH ×3 (09:38→17:32)
[2017-06-02] MEDS: Zidovudine 100mg cap ORAL SCH ×2 (09:38→17:28)
[2017-06-02] MEDS: Heparin 5000 units/ml inj SUBQ SCH ×2 (09:40→21:32)
[2017-06-02 10:58] LABS: INR 1.8 (0.9-1.1)
[2017-06-02 12:00] VITALS: BP 109/56
--- NOTE | 2017-06-02 13:49 | Nephrology Progress Note ---
Assessment/Plan Assessment 1. Acute renal failure. The etiology of acute renal failure including cardiorenal syndrome. 2. Chronic kidney disease. 3. Congestive heart failure exacerbation. 4. Fluid overload. 5. hypokalemia Plan PLAN to continue lasix replace k daily wt check in and out put avoid NSAID check us of kidney Subjective Constitutional: Reports: no symptoms HEENT: Reports: no symptoms Genitourinary: Reports: no symptoms Neurologic/Psychiatric: Reports: no symptoms Subjective alert and awake feeling better less SOB Objective Objective Last 24 Hour Vital Signs Date Time Temp Pulse Resp B/P (MAP) Pulse Ox O2 Delivery O2 Flow Rate FiO2 06/02/17 12:00 98.8 69 19 109/56 100 98.8 06/02/17 09:38 76 115/62 06/02/17 08:00 97.5 76 21 115/62 100 97.5 06/02/17 07:52 Nasal Cannula 3.0 32 06/02/17 07:52 94 Nasal Cannula 3.0 32 06/02/17 07:52 72 20 Nasal Cannula 3.0 32 06/02/17 04:00 99.1 69 20 106/47 97 Room Air 99.1 68 06/02/17 01:27 68 24 96 Nasal Cannula 3.0 32 06/02/17 01:27 65 20 87 Nasal Cannula 3.0 32 06/02/17 00:00 97.5 63 20 111/59 94 Room Air 97.5 59 06/01/17 21:12 Nasal Cannula 3.0 32 06/01/17 21:12 96 Nasal Cannula 3.0 32 06/01/17 21:08 66 20 Nasal Cannula 3.0 32 06/01/17 20:00 97.9 101 20 95/64 95 Nasal Cannula 3.0 97.9 06/01/17 16:00 97.2 64 20 100/62 93 97.2 06/01/17 16:00 65 Intake and Output 06/01/17 06/02/17 19:00 07:00 Intake Total 3000 ml Output Total 3400 ml 1100 ml Balance -400 ml -1100 ml Intake Oral 3000 ml Output Urine Total 3400 ml 1100 ml # Bowel Movements 1 1 Laboratory Tests 06/02/17 07:52: White Blood Count 6.3, Red Blood Count 2.65L, Hemoglobin 10.3L, Hematocrit 31.8L , Mean Corpuscular Volume 120H, Mean Corpuscular Hemoglobin 39.0H, Mean Corpuscular Hemoglobin Concent 32.5, Red Cell Distribution Width 18.5H, Platelet Count 203, Mean Platelet Volume 8.4, Neutrophils (%) (Auto) , Lymphocytes (%) (Auto) , Monocytes (%) (Auto) , Eosinophils (%) (Auto) , Basophils (%) (Auto) , Differential Total Cells Counted 100, Neutrophils % ( Manual) 33L, Lymphocytes % (Manual) 52H, Monocytes % (Manual) 15H, Eosinophils % (Manual) 0, Basophils % (Manual) 0, Band Neutrophils 0, Nucleated Red Blood Cells 6, Reactive Lymphocytes 1+, Platelet Estimate Adequate, Platelet Morphology Normal, Anisocytosis 1+, Macrocytosis 2+, Target Cells 2+, Paula- [place] Bodies 2+, Schistocytes 1+, Sodium Level 140, Potassium Level 3.0L, Chloride Level 97L, Carbon Dioxide Level 38H, Anion Gap 5, Blood Urea Nitrogen 44H, Creatinine 2.6H, Estimat Glomerular Filtration Rate 30.7, Glucose Level 140H, Calcium Level 8.9 06/02/17 10:00: Prothrombin Time 19.4H, Prothromb Time International Ratio 1.8H Height (Feet): 6 Height (Inches): 1.00 Weight (Pounds): 228 Objective HEAD AND NECK: No JVP. No LAD. No thyromegaly. Extraocular movements intact. Pupils are reactive to light and accommodation. LUNGS: Decreased breathing sounds on both sides. CARDIAC: Regular rate and rhythm. S1 and S2. No murmur. No rub. ABDOMEN: Soft, nontender, and nondistended. EXTREMITIES: 4+ edema. No clubbing. No cyanosis. MARIOMARGARITO Jun 02, 2017 13:49
--- NOTE | 2017-06-02 14:45 | General Progress Note ---
Assessment/Plan Problem List: (1) Anemia ICD Codes: D64.9 - Anemia, unspecified SNOMED: 263081699 (2) SOB (shortness of breath) ICD Codes: R06.02 - Shortness of breath SNOMED: 032420082 (3) HTN (hypertension) ICD Codes: I10 - Essential (primary) hypertension SNOMED: 05898360 (4) Edema ICD Codes: R60.9 - Edema, unspecified SNOMED: 633226864, 097781159 (5) Anasarca ICD Codes: R60.1 - Generalized edema SNOMED: 518255830, 843470907 (6) Renal failure ICD Codes: N19 - Unspecified kidney failure SNOMED: 10361315 Qualifiers: Qualified Codes: N17.9 - Acute kidney failure, unspecified; N18.3 - Chronic kidney disease, stage 3 (moderate) (7) HIV (human immunodeficiency virus infection) ICD Codes: B20 - Human immunodeficiency virus [HIV] disease SNOMED: 78349882 (8) NSTEMI (non-ST elevated myocardial infarction) ICD Codes: I21.4 - Non-ST elevation (NSTEMI) myocardial infarction SNOMED: 737056087, 768496455 (9) Congestive heart failure ICD Codes: I50.9 - Heart failure, unspecified SNOMED: 83770113 Qualifiers: Qualified Codes: I50.23 - Acute on chronic systolic (congestive) heart failure Status: progressing, tolerating diet Assessment/Plan o2 pul tx ot pt diet bp control cbc bmp am dc w hh if clear Subjective Constitutional: Reports: weakness Allergies: Coded Allergies: No Known Allergies (Unverified , 05/29/17) All Systems: reviewed and negative except above Subjective o2nc sleepy in bed Objective Last 24 Hour Vital Signs Date Time Temp Pulse Resp B/P (MAP) Pulse Ox O2 Delivery O2 Flow Rate FiO2 06/02/17 12:00 98.8 69 19 109/56 100 98.8 06/02/17 09:38 76 115/62 06/02/17 08:00 97.5 76 21 115/62 100 97.5 06/02/17 07:52 Nasal Cannula 3.0 32 06/02/17 07:52 94 Nasal Cannula 3.0 32 06/02/17 07:52 72 20 Nasal Cannula 3.0 32 06/02/17 04:00 99.1 69 20 106/47 97 Room Air 99.1 68 06/02/17 01:27 68 24 96 Nasal Cannula 3.0 32 06/02/17 01:27 65 20 87 Nasal Cannula 3.0 32 06/02/17 00:00 97.5 63 20 111/59 94 Room Air 97.5 59 06/01/17 21:12 Nasal Cannula 3.0 32 06/01/17 21:12 96 Nasal Cannula 3.0 32 06/01/17 21:08 66 20 Nasal Cannula 3.0 32 06/01/17 20:00 97.9 101 20 95/64 95 Nasal Cannula 3.0 97.9 06/01/17 16:00 97.2 64 20 100/62 93 97.2 06/01/17 16:00 65 Intake and Output 06/01/17 06/02/17 19:00 07:00 Intake Total 3000 ml Output Total 3400 ml 1100 ml Balance -400 ml -1100 ml Intake Oral 3000 ml Output Urine Total 3400 ml 1100 ml # Bowel Movements 1 1 Laboratory Tests 06/02/17 07:52: White Blood Count 6.3, Red Blood Count 2.65L, Hemoglobin 10.3L, Hematocrit 31.8L , Mean Corpuscular Volume 120H, Mean Corpuscular Hemoglobin 39.0H, Mean Corpuscular Hemoglobin Concent 32.5, Red Cell Distribution Width 18.5H, Platelet Count 203, Mean Platelet Volume 8.4, Neutrophils (%) (Auto) , Lymphocytes (%) (Auto) , Monocytes (%) (Auto) , Eosinophils (%) (Auto) , Basophils (%) (Auto) , Differential Total Cells Counted 100, Neutrophils % ( Manual) 33L, Lymphocytes % (Manual) 52H, Monocytes % (Manual) 15H, Eosinophils % (Manual) 0, Basophils % (Manual) 0, Band Neutrophils 0, Nucleated Red Blood Cells 6, Reactive Lymphocytes 1+, Platelet Estimate Adequate, Platelet Morphology Normal, Anisocytosis 1+, Macrocytosis 2+, Target Cells 2+, Paula- [place] Bodies 2+, Schistocytes 1+, Sodium Level 140, Potassium Level 3.0L, Chloride Level 97L, Carbon Dioxide Level 38H, Anion Gap 5, Blood Urea Nitrogen 44H, Creatinine 2.6H, Estimat Glomerular Filtration Rate 30.7, Glucose Level 140H, Calcium Level 8.9 06/02/17 10:00: Prothrombin Time 19.4H, Prothromb Time International Ratio 1.8H Height (Feet): 6 Height (Inches): 1.00 Weight (Pounds): 228 General Appearance: lethargic EENT: normal ENT inspection Neck: normal alignment Cardiovascular: normal peripheral pulses, normal rate, regular rhythm Respiratory/Chest: decreased breath sounds Abdomen: normal bowel sounds, non tender, soft Extremities: normal inspection Edema: 1+ Arm (L), 1+ Arm (R), 1+ Leg (L), 1+ Leg (R), 1+ Pedal (L), 1+ Pedal ( R), 1+ Generalized Edema: trace edema Neurologic: motor weakness Skin: normal pigmentation, warm/dry RAMESH SHUKLA Jun 02, 2017 14:45
[2017-06-02 16:00] VITALS: BP 109/59
[2017-06-02] MEDS ORDERED: Warfarin Sodium 5mg ORAL ONE (17:00)
[2017-06-02 20:00] VITALS: BP 97/51
[2017-06-02] MEDS ORDERED: Miralax 17gm pkt ORAL PRN (20:00)
[2017-06-02] MEDS: Atorvastatin 20mg tab ORAL SCH (21:27)
--- NOTE | 2017-06-02 22:19 | Cardiology Progress Note ---
Assessment/Plan Assessment/Plan 1. Acute systolic and diastolic congestive heart failure. Continue lasix, metolazone, daily weight, fluid restriction <1500ml and I&Os. 2. Possible left ventricular thrombus, continue Coumadin, keep INR at 2-3. 3. Status post cardiac resynchronization therapy plus defibrillator implantation , NYHA class IV. 4. Chronic kidney disease, could be cardiorenal, creat down to 2.6. 5. Non-ischemic cardiomyopathy, stage D, continue GDMT. Objective Last 24 Hour Vital Signs Date Time Temp Pulse Resp B/P (MAP) Pulse Ox O2 Delivery O2 Flow Rate FiO2 06/02/17 20:00 97.3 67 17 97/51 97.3 06/02/17 19:59 Nasal Cannula 3.0 32 06/02/17 19:59 77 20 Nasal Cannula 3.0 32 06/02/17 19:59 95 Nasal Cannula 3.0 32 06/02/17 17:32 69 109/59 06/02/17 16:00 97.5 69 20 109/59 94 97.5 06/02/17 12:00 98.8 69 19 109/56 100 98.8 06/02/17 09:38 76 115/62 06/02/17 08:00 97.5 76 21 115/62 100 97.5 06/02/17 07:52 Nasal Cannula 3.0 32 06/02/17 07:52 94 Nasal Cannula 3.0 32 06/02/17 07:52 72 20 Nasal Cannula 3.0 32 06/02/17 04:00 99.1 69 20 106/47 97 Room Air 99.1 68 06/02/17 01:27 68 24 96 Nasal Cannula 3.0 32 06/02/17 01:27 65 20 87 Nasal Cannula 3.0 32 06/02/17 00:00 97.5 63 20 111/59 94 Room Air 97.5 59 Intake and Output 06/01/17 06/02/17 19:00 07:00 Intake Total 3000 ml Output Total 3400 ml 1100 ml Balance -400 ml -1100 ml Intake Oral 3000 ml Output Urine Total 3400 ml 1100 ml # Bowel Movements 1 1 Laboratory Tests Test 06/02/17 07:50 06/02/17 07:52 06/02/17 10:00 Magnesium Level 2.1 MG/DL (1.8-2.4) White Blood Count 6.3 K/UL (4.8-10.8) Red Blood Count 2.65 M/UL (4.70-6.10) L Hemoglobin 10.3 G/DL (14.2-18.0) L Hematocrit 31.8 % (42.0-52.0) L Mean Corpuscular Volume 120 FL (80-99) H Mean Corpuscular Hemoglobin 39.0 PG (27.0-31.0) H Mean Corpuscular Hemoglobin Concent 32.5 G/DL (32.0-36.0) Red Cell Distribution Width 18.5 % (11.6-14.8) H Platelet Count 203 K/UL (150-450) Mean Platelet Volume 8.4 FL (6.5-10.1) Neutrophils (%) (Auto) % (45.0-75.0) Lymphocytes (%) (Auto) % (20.0-45.0) Monocytes (%) (Auto) % (1.0-10.0) Eosinophils (%) (Auto) % (0.0-3.0) Basophils (%) (Auto) % (0.0-2.0) Differential Total Cells Counted 100 Neutrophils % (Manual) 33 % (45-75) L Lymphocytes % (Manual) 52 % (20-45) H Monocytes % (Manual) 15 % (1-10) H Eosinophils % (Manual) 0 % (0-3) Basophils % (Manual) 0 % (0-2) Band Neutrophils 0 % (0-8) Nucleated Red Blood Cells 6 /100 WBC Reactive Lymphocytes 1+ Platelet Estimate Adequate Platelet Morphology Normal Anisocytosis 1+ Macrocytosis 2+ Target Cells 2+ Paula-[place] Bodies 2+ Schistocytes 1+ Sodium Level 140 MMOL/L (136-145) Potassium Level 3.0 MMOL/L (3.5-5.1) L Chloride Level 97 MMOL/L (98-107) L Carbon Dioxide Level 38 MMOL/L (21-32) H Anion Gap 5 mmol/L (5-15) Blood Urea Nitrogen 44 mg/dL (7-18) H Creatinine 2.6 MG/DL (0.55-1.30) H Estimat Glomerular Filtration Rate 30.7 mL/min (>60) Glucose Level 140 MG/DL (74-106) H Calcium Level 8.9 MG/DL (8.5-10.1) Prothrombin Time 19.4 SEC (9.30-11.50) H Prothromb Time International Ratio 1.8 (0.9-1.1) H SHAVONNE VILLA Jun 02, 2017 22:19
--- NOTE | 2017-06-02 22:28 | Pulmonology Progress Note ---
Assessment/Plan Problems: (1) EF 15% (2) Congestive heart failure (3) Acute bronchitis (4) HIV (human immunodeficiency virus infection) (5) Hepatitis C Assessment/Plan diuresed 10 liters doing better diuresing gradually check electrolytes f/u cardiology recommendations doing better med/surg resume hiv meds dc planning Subjective ROS Limited/Unobtainable: No Constitutional: Reports: no symptoms HEENT: Repors: no symptoms Respiratory: Reports: no symptoms Allergies: Coded Allergies: No Known Allergies (Unverified , 05/29/17) Objective Last 24 Hour Vital Signs Date Time Temp Pulse Resp B/P (MAP) Pulse Ox O2 Delivery O2 Flow Rate FiO2 06/02/17 20:00 97.3 67 17 97/51 97.3 06/02/17 19:59 Nasal Cannula 3.0 32 06/02/17 19:59 77 20 Nasal Cannula 3.0 32 06/02/17 19:59 95 Nasal Cannula 3.0 32 06/02/17 17:32 69 109/59 06/02/17 16:00 97.5 69 20 109/59 94 97.5 06/02/17 12:00 98.8 69 19 109/56 100 98.8 06/02/17 09:38 76 115/62 06/02/17 08:00 97.5 76 21 115/62 100 97.5 06/02/17 07:52 Nasal Cannula 3.0 32 06/02/17 07:52 94 Nasal Cannula 3.0 32 06/02/17 07:52 72 20 Nasal Cannula 3.0 32 06/02/17 04:00 99.1 69 20 106/47 97 Room Air 99.1 68 06/02/17 01:27 68 24 96 Nasal Cannula 3.0 32 06/02/17 01:27 65 20 87 Nasal Cannula 3.0 32 06/02/17 00:00 97.5 63 20 111/59 94 Room Air 97.5 59 Intake and Output 06/01/17 06/02/17 19:00 07:00 Intake Total 3000 ml Output Total 3400 ml 1100 ml Balance -400 ml -1100 ml Intake Oral 3000 ml Output Urine Total 3400 ml 1100 ml # Bowel Movements 1 1 Objective General Appearance: WD/WN Lines, tubes and drains: peripheral HEENT: normocephalic Neck: non-tender Respiratory/Chest: chest wall non-tender, lungs clear Breasts: no masses Cardiovascular/Chest: normal peripheral pulses Abdomen: normal bowel sounds Genitourinary/Rectal: normal genital exam Skin Exam: normal pigmentation 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 Laboratory Tests 06/02/17 07:50: Magnesium Level 2.1 06/02/17 07:52: White Blood Count 6.3, Red Blood Count 2.65L, Hemoglobin 10.3L, Hematocrit 31.8L , Mean Corpuscular Volume 120H, Mean Corpuscular Hemoglobin 39.0H, Mean Corpuscular Hemoglobin Concent 32.5, Red Cell Distribution Width 18.5H, Platelet Count 203, Mean Platelet Volume 8.4, Neutrophils (%) (Auto) , Lymphocytes (%) (Auto) , Monocytes (%) (Auto) , Eosinophils (%) (Auto) , Basophils (%) (Auto) , Differential Total Cells Counted 100, Neutrophils % ( Manual) 33L, Lymphocytes % (Manual) 52H, Monocytes % (Manual) 15H, Eosinophils % (Manual) 0, Basophils % (Manual) 0, Band Neutrophils 0, Nucleated Red Blood Cells 6, Reactive Lymphocytes 1+, Platelet Estimate Adequate, Platelet Morphology Normal, Anisocytosis 1+, Macrocytosis 2+, Target Cells 2+, Paula- [place] Bodies 2+, Schistocytes 1+, Sodium Level 140, Potassium Level 3.0L, Chloride Level 97L, Carbon Dioxide Level 38H, Anion Gap 5, Blood Urea Nitrogen 44H, Creatinine 2.6H, Estimat Glomerular Filtration Rate 30.7, Glucose Level 140H, Calcium Level 8.9 06/02/17 10:00: Prothrombin Time 19.4H, Prothromb Time International Ratio 1.8H Current Medications Medications (Trade) Dose Ordered Sig/Kane Route PRN Reason Start Time Stop Time Status Last Admin Dose Admin Acetaminophen (Tylenol) 650 mg Q4H PRN ORAL Fever 06/02/17 04:00 06/28/17 19:59 Albuterol/ Ipratropium (Albuterol/ Ipratropium) 3 ml Q4H PRN HHN Shortness of Breath 06/02/17 04:00 06/03/17 19:59 06/02/17 01:27 Atorvastatin Calcium (Lipitor) 40 mg BEDTIME ORAL 3/22/18 21:00 06/28/17 20:59 06/02/17 21:27 Carvedilol (Coreg) 6.25 mg BID ORAL 06/02/17 09:00 06/29/17 08:59 06/02/17 09:38 Dextrose (Dextrose 50%) STAT PRN IV Hypoglycemia 06/02/17 20:00 06/28/17 19:59 Furosemide (Lasix) 40 mg EVERY 8 HOURS IV 06/02/17 06:00 06/28/17 21:59 06/02/17 21:27 Gabapentin (Neurontin) 300 mg EVERY 6 HOURS ORAL 06/02/17 06:00 06/29/17 00:00 06/02/17 17:27 Heparin Sodium (Porcine) (Heparin 5000 units/ml) 5,000 units EVERY 12 HOURS SUBQ 06/02/17 09:00 06/28/17 20:59 06/02/17 21:32 Levofloxacin 50 ml @ 50 mls/hr Q24H IVPB 06/02/17 14:00 06/07/17 13:59 06/02/17 13:46 Metolazone (Zaroxolyn) 5 mg DAILY ORAL 06/02/17 09:00 06/29/17 13:59 06/02/17 10:36 Ondansetron HCl (Zofran) 4 mg Q6H PRN IVP Nausea & Vomiting 06/02/17 02:00 06/28/17 19:59 Patient Own Medication (Patient's Own Med) 1 ea DAILY ORAL 06/02/17 09:00 07/02/17 08:59 06/02/17 09:37 Patient Own Medication (Patient's Own Med) 1 ea QOD ORAL 06/03/17 09:00 07/01/17 11:59 Polyethylene Glycol (Miralax) 17 gm DAILYPRN PRN ORAL Constipation 06/02/17 20:00 06/28/17 19:59 Promethazine HCl/ Codeine (Phenergan with Codeine) 5 ml Q4H PRN ORAL For Cough 06/02/17 02:00 06/28/17 21:59 Temazepam (Restoril) 15 mg HSPRN PRN ORAL Insomnia 06/02/17 20:00 06/05/17 19:59 Warfarin Sodium (Coumadin per pharmacy) 1 ea DAILYPRN PRN MISC Per rx protocol 06/02/17 09:00 06/29/17 08:59 Warfarin Sodium (Coumadin) 4 mg COUMADIN PO 06/03/17 17:00 06/08/17 16:59 Zidovudine (Retrovir) 300 mg BID ORAL 06/02/17 09:00 07/01/17 17:59 06/02/17 17:28 Alise Hodge MD Jun 02, 2017 22:28
[2017-06-03] VITALS: BP 91/65
[2017-06-03 04:00] VITALS: BP 102/61
[2017-06-03 08:00] VITALS: BP 96/54
[2017-06-03] MEDS: Carvedilol 6.25mg Tab ORAL SCH ×3 (09:00→17:35)
[2017-06-03 09:49] LABS: HEMOGLOBIN 10.4 G/DL (14.2-18.0); MEAN CORPUSCULAR VOLUME 120 FL (80-99); PLATELET COUNT 226 K/UL (150-450); RED BLOOD COUNT 2.67 M/UL (4.70-6.10); WHITE BLOOD COUNT 6.5 K/UL (4.8-10.8)
[2017-06-03 09:50] LABS: INR 1.8 (0.9-1.1)
[2017-06-03] MEDS: EMTRIVA ORAL SCH (10:09)
[2017-06-03] MEDS: TIVICAY 50 MG ORAL SCH (10:09)
[2017-06-03] MEDS: Zidovudine 100mg cap ORAL SCH ×2 (10:10→17:34)
[2017-06-03] MEDS: Heparin 5000 units/ml inj SUBQ SCH ×2 (10:10→20:16)
[2017-06-03 10:43] LABS: ANION GAP 7 mmol/L (5-15); BLOOD UREA NITROGEN 45 mg/dL (7-18); CARBON DIOXIDE 39 MMOL/L (21-32); CHLORIDE 91 MMOL/L (98-107); CREATININE 2.7 MG/DL (0.55-1.30); POTASSIUM 3.2 MMOL/L (3.5-5.1); SODIUM 137 MMOL/L (136-145)
--- NOTE | 2017-06-03 11:31 | Nephrology Progress Note ---
Assessment/Plan Assessment 1. Acute renal failure. The etiology of acute renal failure including cardiorenal syndrome. 2. Chronic kidney disease. 3. Congestive heart failure exacerbation. 4. Fluid overload. 5. hypokalemia Plan PLAN to continue lasix replace k daily wt check in and out put avoid NSAID check us of kidney Subjective Constitutional: Reports: no symptoms HEENT: Reports: no symptoms Genitourinary: Reports: no symptoms Neurologic/Psychiatric: Reports: no symptoms Subjective alert and awake feeling better less SOB Objective Objective Last 24 Hour Vital Signs Date Time Temp Pulse Resp B/P (MAP) Pulse Ox O2 Delivery O2 Flow Rate FiO2 06/03/17 09:00 78 96/54 06/03/17 08:00 99.0 78 19 96/54 100 99.0 06/03/17 07:40 50 20 Room Air 21 06/03/17 07:40 Room Air 21 06/03/17 07:40 99 Room Air 21 06/03/17 04:00 98.0 100 20 102/61 96 Nasal Cannula 2.0 98.0 06/03/17 00:00 97.5 103 16 91/65 92 97.5 06/03/17 00:00 95 Nasal Cannula 2.0 06/02/17 20:00 97.3 67 17 97/51 97.3 06/02/17 20:00 95 Nasal Cannula 2.0 06/02/17 19:59 Nasal Cannula 3.0 32 06/02/17 19:59 77 20 Nasal Cannula 3.0 32 06/02/17 19:59 95 Nasal Cannula 3.0 32 06/02/17 17:32 69 109/59 06/02/17 16:00 97.5 69 20 109/59 94 97.5 06/02/17 12:00 98.8 69 19 109/56 100 98.8 Intake and Output 06/02/17 06/03/17 19:00 07:00 Intake Total 1090 ml 200 ml Output Total 2800 ml 1000 ml Balance -1710 ml -800 ml Intake Oral 1040 ml 200 ml IV Total 50 ml Output Urine Total 2800 ml 1000 ml Laboratory Tests 06/03/17 08:45: White Blood Count 6.5, Red Blood Count 2.67L, Hemoglobin 10.4L, Hematocrit 32.0L , Mean Corpuscular Volume 120H, Mean Corpuscular Hemoglobin 39.1H, Mean Corpuscular Hemoglobin Concent 32.7, Red Cell Distribution Width 18.0H, Platelet Count 226, Mean Platelet Volume 7.6, Neutrophils (%) (Auto) , Lymphocytes (%) (Auto) , Monocytes (%) (Auto) , Eosinophils (%) (Auto) , Basophils (%) (Auto) , Differential Total Cells Counted 100, Neutrophils % ( Manual) 16L, Lymphocytes % (Manual) 69H, Monocytes % (Manual) 14H, Eosinophils % (Manual) 1, Basophils % (Manual) 0, Band Neutrophils 0, Reactive Lymphocytes 1 +, Platelet Estimate Adequate, Platelet Morphology Normal, Hypochromasia 1+, Anisocytosis 1+, Target Cells 2+, Stomatocytes 1+, Paula-[place] Bodies 2+, Prothrombin Time 18.5H, Prothromb Time International Ratio 1.8H, Sodium Level 137, Potassium Level 3.2L, Chloride Level 91L, Carbon Dioxide Level 39H, Anion Gap 7, Blood Urea Nitrogen 45H, Creatinine 2.7H, Estimat Glomerular Filtration Rate 29.3, Glucose Level 156H, Calcium Level 9.0 Height (Feet): 6 Height (Inches): 1.00 Weight (Pounds): 232 Objective HEAD AND NECK: No JVP. No LAD. No thyromegaly. Extraocular movements intact. Pupils are reactive to light and accommodation. LUNGS: Decreased breathing sounds on both sides. CARDIAC: Regular rate and rhythm. S1 and S2. No murmur. No rub. ABDOMEN: Soft, nontender, and nondistended. EXTREMITIES: 4+ edema. No clubbing. No cyanosis. MARGARITO MARTIN Jun 03, 2017 11:31
[2017-06-03 12:00] VITALS: BP 96/54
--- NOTE | 2017-06-03 13:55 | General Progress Note ---
Assessment/Plan Problem List: (1) Anemia ICD Codes: D64.9 - Anemia, unspecified SNOMED: 009594370 (2) SOB (shortness of breath) ICD Codes: R06.02 - Shortness of breath SNOMED: 663045070 (3) HTN (hypertension) ICD Codes: I10 - Essential (primary) hypertension SNOMED: 10413456 (4) Edema ICD Codes: R60.9 - Edema, unspecified SNOMED: 681291145, 256254342 (5) Anasarca ICD Codes: R60.1 - Generalized edema SNOMED: 832072453, 519975535 (6) Renal failure ICD Codes: N19 - Unspecified kidney failure SNOMED: 13564574 Qualifiers: Qualified Codes: N17.9 - Acute kidney failure, unspecified; N18.3 - Chronic kidney disease, stage 3 (moderate) (7) HIV (human immunodeficiency virus infection) ICD Codes: B20 - Human immunodeficiency virus [HIV] disease SNOMED: 17124425 (8) NSTEMI (non-ST elevated myocardial infarction) ICD Codes: I21.4 - Non-ST elevation (NSTEMI) myocardial infarction SNOMED: 824147852, 876016587 (9) Congestive heart failure ICD Codes: I50.9 - Heart failure, unspecified SNOMED: 47802230 Qualifiers: Qualified Codes: I50.23 - Acute on chronic systolic (congestive) heart failure Status: stable, progressing, tolerating diet Assessment/Plan o2 pul tx ot pt diet bp control dc w hh if clear Subjective Constitutional: Reports: weakness Allergies: Coded Allergies: No Known Allergies (Unverified , 05/29/17) All Systems: reviewed and negative except above Subjective sleepy in bed Objective Last 24 Hour Vital Signs Date Time Temp Pulse Resp B/P (MAP) Pulse Ox O2 Delivery O2 Flow Rate FiO2 06/03/17 12:00 98.4 78 19 96/54 97 98.4 06/03/17 09:00 78 96/54 06/03/17 08:00 99.0 78 19 96/54 100 99.0 06/03/17 07:40 50 20 Room Air 21 06/03/17 07:40 Room Air 21 06/03/17 07:40 99 Room Air 21 06/03/17 04:00 98.0 100 20 102/61 96 Nasal Cannula 2.0 98.0 06/03/17 00:00 97.5 103 16 91/65 92 97.5 06/03/17 00:00 95 Nasal Cannula 2.0 06/02/17 20:00 97.3 67 17 97/51 97.3 06/02/17 20:00 95 Nasal Cannula 2.0 06/02/17 19:59 Nasal Cannula 3.0 32 06/02/17 19:59 77 20 Nasal Cannula 3.0 32 06/02/17 19:59 95 Nasal Cannula 3.0 32 06/02/17 17:32 69 109/59 06/02/17 16:00 97.5 69 20 109/59 94 97.5 Intake and Output 06/02/17 06/03/17 19:00 07:00 Intake Total 1090 ml 200 ml Output Total 2800 ml 1000 ml Balance -1710 ml -800 ml Intake Oral 1040 ml 200 ml IV Total 50 ml Output Urine Total 2800 ml 1000 ml Laboratory Tests 06/03/17 08:45: White Blood Count 6.5, Red Blood Count 2.67L, Hemoglobin 10.4L, Hematocrit 32.0L , Mean Corpuscular Volume 120H, Mean Corpuscular Hemoglobin 39.1H, Mean Corpuscular Hemoglobin Concent 32.7, Red Cell Distribution Width 18.0H, Platelet Count 226, Mean Platelet Volume 7.6, Neutrophils (%) (Auto) , Lymphocytes (%) (Auto) , Monocytes (%) (Auto) , Eosinophils (%) (Auto) , Basophils (%) (Auto) , Differential Total Cells Counted 100, Neutrophils % ( Manual) 16L, Lymphocytes % (Manual) 69H, Monocytes % (Manual) 14H, Eosinophils % (Manual) 1, Basophils % (Manual) 0, Band Neutrophils 0, Reactive Lymphocytes 1 +, Platelet Estimate Adequate, Platelet Morphology Normal, Hypochromasia 1+, Anisocytosis 1+, Target Cells 2+, Stomatocytes 1+, Paula-[place] Bodies 2+, Prothrombin Time 18.5H, Prothromb Time International Ratio 1.8H, Sodium Level 137, Potassium Level 3.2L, Chloride Level 91L, Carbon Dioxide Level 39H, Anion Gap 7, Blood Urea Nitrogen 45H, Creatinine 2.7H, Estimat Glomerular Filtration Rate 29.3, Glucose Level 156H, Calcium Level 9.0 Height (Feet): 6 Height (Inches): 1.00 Weight (Pounds): 232 General Appearance: alert EENT: normal ENT inspection Neck: normal alignment Cardiovascular: normal peripheral pulses, normal rate, regular rhythm Respiratory/Chest: chest wall non-tender, lungs clear, normal breath sounds Abdomen: normal bowel sounds, non tender, soft Extremities: normal inspection Edema: no edema noted Arm (L), no edema noted Arm (R), no edema noted Leg (L), no edema noted Leg (R), no edema noted Pedal (L), no edema noted Pedal (R), no edema noted Generalized Neurologic: responsive, motor weakness Skin: normal pigmentation, warm/dry RAMESH SHUKLA Jun 03, 2017 13:55
[2017-06-03 16:00] VITALS: BP 96/62
[2017-06-03] MEDS ORDERED: Warfarin Sodium 4mg PO SCH (17:00)
[2017-06-03] MEDS ORDERED: Warfarin Sodium 5mg ORAL SCH (17:00)
--- NOTE | 2017-06-03 17:23 | Cardiology Progress Note ---
Assessment/Plan Assessment/Plan 1. Acute systolic and diastolic congestive heart failure. Continue lasix, metolazone, daily weight, fluid restriction <1500ml and I&Os. 2. Possible left ventricular thrombus, continue Coumadin, keep INR at 2-3. 3. Status post cardiac resynchronization therapy plus defibrillator implantation , NYHA class IV. 4. Chronic kidney disease, could be cardiorenal, creat down at 2.7. 5. Non-ischemic cardiomyopathy, stage D, continue GDMT. Subjective Cardiovascular: Reports: no symptoms Respiratory: Reports: no symptoms Gastrointestinal/Abdominal: Reports: no symptoms Genitourinary: Reports: no symptoms Subjective Transferred to non-telemetry unit. No chest pain. SOB is better. Objective Last 24 Hour Vital Signs Date Time Temp Pulse Resp B/P (MAP) Pulse Ox O2 Delivery O2 Flow Rate FiO2 06/03/17 16:00 97.7 67 18 96/62 97 97.7 06/03/17 12:00 98.4 78 19 96/54 97 98.4 06/03/17 09:00 78 96/54 06/03/17 08:00 99.0 78 19 96/54 100 99.0 06/03/17 07:40 50 20 Room Air 21 06/03/17 07:40 Room Air 21 06/03/17 07:40 99 Room Air 21 06/03/17 04:00 98.0 100 20 102/61 96 Nasal Cannula 2.0 98.0 06/03/17 00:00 97.5 103 16 91/65 92 97.5 06/03/17 00:00 95 Nasal Cannula 2.0 06/02/17 20:00 97.3 67 17 97/51 97.3 06/02/17 20:00 95 Nasal Cannula 2.0 06/02/17 19:59 Nasal Cannula 3.0 32 06/02/17 19:59 77 20 Nasal Cannula 3.0 32 06/02/17 19:59 95 Nasal Cannula 3.0 32 06/02/17 17:32 69 109/59 Intake and Output 06/02/17 06/03/17 19:00 07:00 Intake Total 1090 ml 200 ml Output Total 2800 ml 1000 ml Balance -1710 ml -800 ml Intake Oral 1040 ml 200 ml IV Total 50 ml Output Urine Total 2800 ml 1000 ml 2D Echo: 4Ch-DCM, EF 10%, Global AK, septal DK, RVSP 60mmHg, Mod MR,Mild AR Laboratory Tests Test 06/03/17 08:45 White Blood Count 6.5 K/UL (4.8-10.8) Red Blood Count 2.67 M/UL (4.70-6.10) L Hemoglobin 10.4 G/DL (14.2-18.0) L Hematocrit 32.0 % (42.0-52.0) L Mean Corpuscular Volume 120 FL (80-99) H Mean Corpuscular Hemoglobin 39.1 PG (27.0-31.0) H Mean Corpuscular Hemoglobin Concent 32.7 G/DL (32.0-36.0) Red Cell Distribution Width 18.0 % (11.6-14.8) H Platelet Count 226 K/UL (150-450) Mean Platelet Volume 7.6 FL (6.5-10.1) Neutrophils (%) (Auto) % (45.0-75.0) Lymphocytes (%) (Auto) % (20.0-45.0) Monocytes (%) (Auto) % (1.0-10.0) Eosinophils (%) (Auto) % (0.0-3.0) Basophils (%) (Auto) % (0.0-2.0) Differential Total Cells Counted 100 Neutrophils % (Manual) 16 % (45-75) L Lymphocytes % (Manual) 69 % (20-45) H Monocytes % (Manual) 14 % (1-10) H Eosinophils % (Manual) 1 % (0-3) Basophils % (Manual) 0 % (0-2) Band Neutrophils 0 % (0-8) Reactive Lymphocytes 1+ Platelet Estimate Adequate Platelet Morphology Normal Hypochromasia 1+ Anisocytosis 1+ Target Cells 2+ Stomatocytes 1+ Paula-[place] Bodies 2+ Prothrombin Time 18.5 SEC (9.30-11.50) H Prothromb Time International Ratio 1.8 (0.9-1.1) H Sodium Level 137 MMOL/L (136-145) Potassium Level 3.2 MMOL/L (3.5-5.1) L Chloride Level 91 MMOL/L (98-107) L Carbon Dioxide Level 39 MMOL/L (21-32) H Anion Gap 7 mmol/L (5-15) Blood Urea Nitrogen 45 mg/dL (7-18) H Creatinine 2.7 MG/DL (0.55-1.30) H Estimat Glomerular Filtration Rate 29.3 mL/min (>60) Glucose Level 156 MG/DL (74-106) H Calcium Level 9.0 MG/DL (8.5-10.1) Objective HEENT: Atraumatic and normocephalic. ENT, pupils are equal, round, and reactive to light and accommodation. Extraocular muscles intact. NECK: JVP of about 15 cm. No carotid bruits. Carotid upstrokes 2+. CARDIOVASCULAR: Normal S1 and S2. Distant, regular rate and rhythm. A 2/6 holosystolic murmur at the apex. LUNGS: Diminished breath sounds in both bases with increased dullness. There are scattered crackles in both bases in both lungs. Diminished expansion of the chest bilaterally. ABDOMEN: Soft, nontender, and nondistended. No hepatosplenomegaly. Positive bowel sounds. EXTREMITIES: There is 4+ bilateral edema SHAVONNE VILLA Jun 03, 2017 17:23
--- NOTE | 2017-06-03 19:27 | Pulmonology Progress Note ---
Assessment/Plan Assessment/Plan ASSESSMENT acute systolic and diastolic CHF exacerbation nonischemic cardiomyopathy ( EF<10%) acute bronchitis Status post cardiac resynchronization therapy plus defibrillator implantation, end stage CHF, NYHA class IV CKD, possible cardiorenal moderate to severe MR severe pulmonary HTN possible LV thrombus HIV status Hepatitis C PLAN OF CARE MS floor O2 HHN prn diuresis with Lasix and Zaroxolyn, monitor cardiorenal parameters, volumes ECHO with EF<10%, RVSP of 60 c/w severe pulmonary HTn and moderate to severe MR possible LV thrombus, on anticoagulation keep Coumadin in therapeutic range 2-3, today INR-1.8 has AICD medical management of CHF with BB, diuretic, add JOSELITO when BP allows cardio follows fup with CXR a/tussive prn empiric abx for acute bronchitis nephro follows renal US no hydro, normal bilateral echogenicity, bladder with 244 ml of urine K replaced as per nephro orders continue ART therapy case discussed and evaluated by supervising physician Subjective Allergies: Coded Allergies: No Known Allergies (Unverified , 05/29/17) Subjective denies chest pain, on RA pusle ox stable K-3.2 Objective Last 24 Hour Vital Signs Date Time Temp Pulse Resp B/P (MAP) Pulse Ox O2 Delivery O2 Flow Rate FiO2 06/03/17 17:35 67 96/62 06/03/17 16:00 97.7 67 18 96/62 97 97.7 06/03/17 12:00 98.4 78 19 96/54 97 98.4 06/03/17 09:00 78 96/54 06/03/17 08:00 99.0 78 19 96/54 100 99.0 06/03/17 07:40 50 20 Room Air 21 06/03/17 07:40 Room Air 21 06/03/17 07:40 99 Room Air 21 06/03/17 04:00 98.0 100 20 102/61 96 Nasal Cannula 2.0 98.0 06/03/17 00:00 97.5 103 16 91/65 92 97.5 06/03/17 00:00 95 Nasal Cannula 2.0 06/02/17 20:00 97.3 67 17 97/51 97.3 06/02/17 20:00 95 Nasal Cannula 2.0 06/02/17 19:59 Nasal Cannula 3.0 32 06/02/17 19:59 77 20 Nasal Cannula 3.0 32 06/02/17 19:59 95 Nasal Cannula 3.0 32 Intake and Output 06/02/17 06/03/17 19:00 07:00 Intake Total 1090 ml 200 ml Output Total 2800 ml 1000 ml Balance -1710 ml -800 ml Intake Oral 1040 ml 200 ml IV Total 50 ml Output Urine Total 2800 ml 1000 ml General Appearance: no acute distress HEENT: normocephalic, atraumatic, anicteric, mucous membranes moist Respiratory/Chest: decreased breath sounds, crackles/rales - scattered crackles at bases Cardiovascular: normal rate, murmur systolic - 2/6 Abdomen: normal bowel sounds, soft, non tender Neurologic/Psychiatric: alert, responsive Musculoskeletal: normal muscle bulk Laboratory Tests 06/03/17 08:45: White Blood Count 6.5, Red Blood Count 2.67L, Hemoglobin 10.4L, Hematocrit 32.0L , Mean Corpuscular Volume 120H, Mean Corpuscular Hemoglobin 39.1H, Mean Corpuscular Hemoglobin Concent 32.7, Red Cell Distribution Width 18.0H, Platelet Count 226, Mean Platelet Volume 7.6, Neutrophils (%) (Auto) , Lymphocytes (%) (Auto) , Monocytes (%) (Auto) , Eosinophils (%) (Auto) , Basophils (%) (Auto) , Differential Total Cells Counted 100, Neutrophils % ( Manual) 16L, Lymphocytes % (Manual) 69H, Monocytes % (Manual) 14H, Eosinophils % (Manual) 1, Basophils % (Manual) 0, Band Neutrophils 0, Reactive Lymphocytes 1 +, Platelet Estimate Adequate, Platelet Morphology Normal, Hypochromasia 1+, Anisocytosis 1+, Target Cells 2+, Stomatocytes 1+, Paula-[place] Bodies 2+, Prothrombin Time 18.5H, Prothromb Time International Ratio 1.8H, Sodium Level 137, Potassium Level 3.2L, Chloride Level 91L, Carbon Dioxide Level 39H, Anion Gap 7, Blood Urea Nitrogen 45H, Creatinine 2.7H, Estimat Glomerular Filtration Rate 29.3, Glucose Level 156H, Calcium Level 9.0 Current Medications Medications (Trade) Dose Ordered Sig/Kane Route PRN Reason Start Time Stop Time Status Last Admin Dose Admin Acetaminophen (Tylenol) 650 mg Q4H PRN ORAL Fever 06/02/17 04:00 06/28/17 19:59 Albuterol/ Ipratropium (Albuterol/ Ipratropium) 3 ml Q4H PRN HHN Shortness of Breath 06/02/17 04:00 06/03/17 19:59 06/02/17 01:27 Atorvastatin Calcium (Lipitor) 40 mg BEDTIME ORAL 06/02/17 21:00 06/28/17 20:59 06/02/17 21:27 Carvedilol (Coreg) 6.25 mg BID ORAL 06/02/17 09:00 06/29/17 08:59 06/02/17 09:38 Dextrose (Dextrose 50%) STAT PRN IV Hypoglycemia 06/02/17 20:00 06/28/17 19:59 Furosemide (Lasix) 40 mg EVERY 8 HOURS IV 06/02/17 06:00 06/28/17 21:59 06/03/17 14:45 Gabapentin (Neurontin) 300 mg EVERY 6 HOURS ORAL 06/02/17 06:00 06/29/17 00:00 06/03/17 17:34 Heparin Sodium (Porcine) (Heparin 5000 units/ml) 5,000 units EVERY 12 HOURS SUBQ 06/02/17 09:00 06/28/17 20:59 06/03/17 10:10 Levofloxacin 50 ml @ 50 mls/hr Q24H IVPB 06/02/17 14:00 06/07/17 13:59 06/03/17 14:44 Metolazone (Zaroxolyn) 5 mg DAILY ORAL 06/02/17 09:00 06/29/17 13:59 06/03/17 10:09 Ondansetron HCl (Zofran) 4 mg Q6H PRN IVP Nausea & Vomiting 06/02/17 02:00 06/28/17 19:59 Patient Own Medication (Patient's Own Med) 1 ea DAILY ORAL 06/02/17 09:00 07/02/17 08:59 06/03/17 10:09 Patient Own Medication (Patient's Own Med) 1 ea QOD ORAL 06/03/17 09:00 07/01/17 11:59 06/03/17 10:09 Polyethylene Glycol (Miralax) 17 gm DAILYPRN PRN ORAL Constipation 06/02/17 20:00 06/28/17 19:59 Promethazine HCl/ Codeine (Phenergan with Codeine) 5 ml Q4H PRN ORAL For Cough 06/02/17 02:00 06/28/17 21:59 Temazepam (Restoril) 15 mg HSPRN PRN ORAL Insomnia 06/02/17 20:00 06/05/17 19:59 Warfarin Sodium (Coumadin per pharmacy) 1 ea DAILYPRN PRN MISC Per rx protocol 06/02/17 09:00 06/29/17 08:59 Warfarin Sodium (Coumadin) 5 mg COUMADIN ORAL 06/03/17 17:00 06/08/17 16:59 06/03/17 17:29 Zidovudine (Retrovir) 300 mg BID ORAL 06/02/17 09:00 07/01/17 17:59 06/03/17 17:34 Naren ([facility])Maryann NP Jun 03, 2017 19:27
[2017-06-03 20:00] VITALS: BP 92/54
[2017-06-03] MEDS: Atorvastatin 20mg tab ORAL SCH (20:10)
[2017-06-04] VITALS (8 sets, daily range): BP systolic 89–114; BP diastolic 50–66
[2017-06-04 07:21] LABS: ANION GAP 1 mmol/L (5-15); BLOOD UREA NITROGEN 43 mg/dL (7-18); CALCIUM 8.8 MG/DL (8.5-10.1); CHLORIDE 94 MMOL/L (98-107); CREATININE 2.9 MG/DL (0.55-1.30); POTASSIUM 3.5 MMOL/L (3.5-5.1); SODIUM 139 MMOL/L (136-145)
[2017-06-04 07:33] LABS: CARBON DIOXIDE 44 MMOL/L (21-32)
[2017-06-04 07:47] LABS: INR 1.5 (0.9-1.1)
[2017-06-04] MEDS: Zidovudine 100mg cap ORAL SCH ×2 (08:59→17:00)
[2017-06-04] MEDS: TIVICAY 50 MG ORAL SCH (08:59)
[2017-06-04] MEDS: Carvedilol 6.25mg Tab ORAL SCH ×2 (08:59→17:00)
[2017-06-04] MEDS: Heparin 5000 units/ml inj SUBQ SCH ×2 (09:05→22:10)
--- NOTE | 2017-06-04 10:19 | Diagnostic Imaging Report ---
Indication: Cough Technique: XRAY Chest 1v Comparison: 05/30/2017 Findings: Cardiomediastinal silhouette is stable. Left chest pacemaker is again noted. Bilateral interstitial opacities are again seen. Bibasilar atelectasis and/or small pleural effusions are present. Osseous structures are stable. Impression: Cardiomegaly with interstitial edema. Bibasilar atelectasis and/or small pleural effusions.
--- NOTE | 2017-06-04 12:13 | General Progress Note ---
Assessment/Plan Problem List: (1) HIV (human immunodeficiency virus infection) ICD Codes: B20 - Human immunodeficiency virus [HIV] disease SNOMED: 45689637 (2) Renal failure ICD Codes: N19 - Unspecified kidney failure SNOMED: 89513925 Qualifiers: Qualified Codes: N17.9 - Acute kidney failure, unspecified; N18.3 - Chronic kidney disease, stage 3 (moderate) (3) Hepatitis C ICD Codes: B19.20 - Unspecified viral hepatitis C without hepatic coma SNOMED: 34420820 Qualifiers: Qualified Codes: B18.2 - Chronic viral hepatitis C (4) Congestive heart failure ICD Codes: I50.9 - Heart failure, unspecified SNOMED: 29518387 Qualifiers: Qualified Codes: I50.23 - Acute on chronic systolic (congestive) heart failure (5) H/O deep venous thrombosis ICD Codes: Z86.718 - Personal history of other venous thrombosis and embolism SNOMED: 852308203 (6) Anasarca ICD Codes: R60.1 - Generalized edema SNOMED: 378740020, 161796543 (7) Anemia ICD Codes: D64.9 - Anemia, unspecified SNOMED: 983451969 (8) Edema ICD Codes: R60.9 - Edema, unspecified SNOMED: 529429153, 242543147 (9) SOB (shortness of breath) ICD Codes: R06.02 - Shortness of breath SNOMED: 322617969 (10) HTN (hypertension) ICD Codes: I10 - Essential (primary) hypertension SNOMED: 89523537 Status: progressing Assessment/Plan dyspnea afebrile chf edema reviewed chart and labs no acute events skin integrety per nursing notes Subjective ROS Limited/Unobtainable: Yes Allergies: Coded Allergies: No Known Allergies (Unverified , 05/29/17) Objective Last 24 Hour Vital Signs Date Time Temp Pulse Resp B/P (MAP) Pulse Ox O2 Delivery O2 Flow Rate FiO2 06/04/17 08:59 119 98/50 06/04/17 08:13 Nasal Cannula 3.0 32 06/04/17 08:13 65 18 Nasal Cannula 3.0 32 06/04/17 08:13 98 Nasal Cannula 3.0 32 06/04/17 08:00 98.1 119 18 98/50 95 98.1 06/04/17 04:00 97.7 75 18 90/65 92 97.7 06/04/17 00:00 97.8 65 18 96 97.8 06/04/17 00:00 91/50 Nasal Cannula 2.0 06/03/17 20:00 92/54 Nasal Cannula 2.0 06/03/17 19:58 96 Nasal Cannula 3.0 32 06/03/17 19:58 67 20 Room Air 21 06/03/17 19:58 Nasal Cannula 3.0 32 06/03/17 17:35 67 96/62 06/03/17 16:00 97.7 67 18 96/62 97 97.7 Intake and Output 06/03/17 06/04/17 19:00 07:00 Intake Total 580 ml 600 ml Output Total 1300 ml 2900 ml Balance -720 ml -2300 ml Intake Oral 580 ml 600 ml Output Urine Total 1300 ml 2900 ml Laboratory Tests 06/04/17 05:55: Prothrombin Time 15.4H, Prothromb Time International Ratio 1.5H, Sodium Level 139, Potassium Level 3.5, Chloride Level 94L, Carbon Dioxide Level 44*H, Anion Gap 1L, Blood Urea Nitrogen 43H, Creatinine 2.9H, Estimat Glomerular Filtration Rate 27.0, Glucose Level 117H, Calcium Level 8.8, Magnesium Level 2.4 Height (Feet): 6 Height (Inches): 1.00 Weight (Pounds): 213 General Appearance: confused Cardiovascular: normal rate Respiratory/Chest: rhonchi - bilaterally Marguerite Hyatt MD Jun 04, 2017 12:13
--- NOTE | 2017-06-04 12:19 | Nephrology Progress Note ---
Assessment/Plan Assessment 1. Acute renal failure. The etiology of acute renal failure including cardiorenal syndrome. 2. Chronic kidney disease. 3. Congestive heart failure exacerbation. 4. Fluid overload. 5. hypokalemia Plan PLAN to continue lasix replace k daily wt check in and out put avoid NSAID check us of kidney Subjective Subjective alert and awake feeling better less SOB Objective Objective Last 24 Hour Vital Signs Date Time Temp Pulse Resp B/P (MAP) Pulse Ox O2 Delivery O2 Flow Rate FiO2 06/04/17 12:00 97.3 73 18 98/56 95 97.3 06/04/17 08:59 119 98/50 06/04/17 08:13 Nasal Cannula 3.0 32 06/04/17 08:13 65 18 Nasal Cannula 3.0 32 06/04/17 08:13 98 Nasal Cannula 3.0 32 06/04/17 08:00 98.1 119 18 98/50 95 98.1 06/04/17 04:00 97.7 75 18 90/65 92 97.7 06/04/17 00:00 97.8 65 18 96 97.8 06/04/17 00:00 91/50 Nasal Cannula 2.0 06/03/17 20:00 92/54 Nasal Cannula 2.0 06/03/17 19:58 96 Nasal Cannula 3.0 32 06/03/17 19:58 67 20 Room Air 21 06/03/17 19:58 Nasal Cannula 3.0 32 06/03/17 17:35 67 96/62 06/03/17 16:00 97.7 67 18 96/62 97 97.7 Intake and Output 06/03/17 06/04/17 19:00 07:00 Intake Total 580 ml 600 ml Output Total 1300 ml 2900 ml Balance -720 ml -2300 ml Intake Oral 580 ml 600 ml Output Urine Total 1300 ml 2900 ml Laboratory Tests 06/04/17 05:55: Prothrombin Time 15.4H, Prothromb Time International Ratio 1.5H, Sodium Level 139, Potassium Level 3.5, Chloride Level 94L, Carbon Dioxide Level 44*H, Anion Gap 1L, Blood Urea Nitrogen 43H, Creatinine 2.9H, Estimat Glomerular Filtration Rate 27.0, Glucose Level 117H, Calcium Level 8.8, Magnesium Level 2.4 Height (Feet): 6 Height (Inches): 1.00 Weight (Pounds): 213 Objective HEAD AND NECK: No JVP. No LAD. No thyromegaly. Extraocular movements intact. Pupils are reactive to light and accommodation. LUNGS: Decreased breathing sounds on both sides. CARDIAC: Regular rate and rhythm. S1 and S2. No murmur. No rub. ABDOMEN: Soft, nontender, and nondistended. EXTREMITIES: 4+ edema. No clubbing. No cyanosis. MARGARITO MARTIN Jun 04, 2017 12:19
--- NOTE | 2017-06-04 13:24 | Pulmonology Progress Note ---
Assessment/Plan Assessment/Plan ASSESSMENT acute systolic and diastolic CHF exacerbation nonischemic cardiomyopathy ( EF<10%) acute bronchitis CO2 retention, provably acute on chronic Status post cardiac resynchronization therapy plus defibrillator implantation, end stage CHF, NYHA class IV CKD, possible cardiorenal moderate to severe MR severe pulmonary HTN possible LV thrombus HIV status Hepatitis C PLAN OF CARE [place] floor O2 HHN prn diuresis with Lasix and Zaroxolyn, monitor cardiorenal parameters, volumes ECHO with EF<10%, RVSP of 60 c/w severe pulmonary HTn and moderate to severe MR possible LV thrombus, on anticoagulation keep Coumadin in therapeutic range 2-3, today INR-1.5 still subtherapeutic has AICD medical management of CHF with BB, diuretic, add JOSELITO when BP allows cardio follows start Diamox in hope to reset CO2 titrate O2 to lowest to keep pulse ox above 90% if pulse ox 90% on RA dc O2 fup with CXR a/tussive prn empiric abx for acute bronchitis nephro follows renal US no hydro, normal bilateral echogenicity, bladder with 244 ml of urine K replaced as per nephro orders continue ART therapy case discussed and evaluated by supervising physician case discussed and evaluated by supervising physician Subjective Allergies: Coded Allergies: No Known Allergies (Unverified , 05/29/17) Subjective denies chest pain, on O2 via NC CO2 44 on BMP this am Objective Last 24 Hour Vital Signs Date Time Temp Pulse Resp B/P (MAP) Pulse Ox O2 Delivery O2 Flow Rate FiO2 06/04/17 12:00 97.3 73 18 98/56 95 97.3 06/04/17 08:59 119 98/50 06/04/17 08:13 Nasal Cannula 3.0 32 06/04/17 08:13 65 18 Nasal Cannula 3.0 32 06/04/17 08:13 98 Nasal Cannula 3.0 32 06/04/17 08:00 98.1 119 18 98/50 95 98.1 06/04/17 04:00 97.7 75 18 90/65 92 97.7 06/04/17 00:00 97.8 65 18 96 97.8 06/04/17 00:00 91/50 Nasal Cannula 2.0 06/03/17 20:00 92/54 Nasal Cannula 2.0 06/03/17 19:58 96 Nasal Cannula 3.0 32 06/03/17 19:58 67 20 Room Air 21 06/03/17 19:58 Nasal Cannula 3.0 32 06/03/17 17:35 67 96/62 06/03/17 16:00 97.7 67 18 96/62 97 97.7 Intake and Output 06/03/17 06/04/17 19:00 07:00 Intake Total 580 ml 600 ml Output Total 1300 ml 2900 ml Balance -720 ml -2300 ml Intake Oral 580 ml 600 ml Output Urine Total 1300 ml 2900 ml Objective General Appearance: no acute distress HEENT: normocephalic, atraumatic, anicteric, mucous membranes moist Respiratory/Chest: decreased breath sounds, crackles/rales - scattered crackles at bases Cardiovascular: normal rate, murmur systolic - 2/6 Abdomen: normal bowel sounds, soft, non tender Neurologic/Psychiatric: alert, responsive Musculoskeletal: normal muscle bulk Laboratory Tests 06/04/17 05:55: Prothrombin Time 15.4H, Prothromb Time International Ratio 1.5H, Sodium Level 139, Potassium Level 3.5, Chloride Level 94L, Carbon Dioxide Level 44*H, Anion Gap 1L, Blood Urea Nitrogen 43H, Creatinine 2.9H, Estimat Glomerular Filtration Rate 27.0, Glucose Level 117H, Calcium Level 8.8, Magnesium Level 2.4 Current Medications Medications (Trade) Dose Ordered Sig/Kane Route PRN Reason Start Time Stop Time Status Last Admin Dose Admin Acetaminophen (Tylenol) 650 mg Q4H PRN ORAL Fever 06/02/17 04:00 06/28/17 19:59 Atorvastatin Calcium (Lipitor) 40 mg BEDTIME ORAL 06/02/17 21:00 06/28/17 20:59 06/03/17 20:10 Carvedilol (Coreg) 6.25 mg BID ORAL 06/02/17 09:00 06/29/17 08:59 06/04/17 08:59 Dextrose (Dextrose 50%) STAT PRN IV Hypoglycemia 06/02/17 20:00 06/28/17 19:59 Furosemide (Lasix) 40 mg EVERY 8 HOURS IV 06/02/17 06:00 06/28/17 21:59 06/04/17 05:31 Gabapentin (Neurontin) 300 mg EVERY 6 HOURS ORAL 06/02/17 06:00 06/29/17 00:00 06/04/17 05:31 Heparin Sodium (Porcine) (Heparin 5000 units/ml) 5,000 units EVERY 12 HOURS SUBQ 06/02/17 09:00 06/28/17 20:59 06/04/17 09:05 Levofloxacin 50 ml @ 50 mls/hr Q24H IVPB 06/02/17 14:00 06/07/17 13:59 06/03/17 14:44 Metolazone (Zaroxolyn) 5 mg DAILY ORAL 06/02/17 09:00 06/29/17 13:59 06/04/17 08:58 Ondansetron HCl (Zofran) 4 mg Q6H PRN IVP Nausea & Vomiting 06/02/17 02:00 06/28/17 19:59 Patient Own Medication (Patient's Own Med) 1 ea DAILY ORAL 06/02/17 09:00 07/02/17 08:59 06/04/17 08:59 Patient Own Medication (Patient's Own Med) 1 ea QOD ORAL 06/03/17 09:00 07/01/17 11:59 06/03/17 10:09 Polyethylene Glycol (Miralax) 17 gm DAILYPRN PRN ORAL Constipation 06/02/17 20:00 06/28/17 19:59 Promethazine HCl/ Codeine (Phenergan with Codeine) 5 ml Q4H PRN ORAL For Cough 06/02/17 02:00 06/28/17 21:59 06/03/17 23:39 Temazepam (Restoril) 15 mg HSPRN PRN ORAL Insomnia 06/02/17 20:00 06/05/17 19:59 Warfarin Sodium (Coumadin per pharmacy) 1 ea DAILYPRN PRN MISC Per rx protocol 06/02/17 09:00 06/29/17 08:59 Warfarin Sodium (Coumadin) 7.5 mg COUMADIN ONCE ORAL 06/04/17 17:00 06/04/17 17:01 Zidovudine (Retrovir) 300 mg BID ORAL 06/02/17 09:00 07/01/17 17:59 06/04/17 08:59 Naren LópezMaryann toro NP Jun 04, 2017 13:24
[2017-06-04] MEDS ORDERED: Albuterol/Ipratropium 3ml neb HHN PRN (13:30)
[2017-06-04] MEDS: Enoxaparin 100mg Inj SUBQ SCH (15:30)
[2017-06-04] MEDS ORDERED: Warfarin Sodium 7.5mg ORAL ONE (17:00)
[2017-06-04] MEDS: Atorvastatin 20mg tab ORAL SCH (22:09)
--- NOTE | 2017-06-04 23:57 | Cardiology Progress Note ---
Assessment/Plan Assessment/Plan 1. Acute systolic and diastolic congestive heart failure. Continue lasix, metolazone, daily weight, fluid restriction <1500ml and I&Os. 2. Possible left ventricular thrombus, continue Coumadin, keep INR at 2-3. 3. Status post cardiac resynchronization therapy plus defibrillator implantation , NYHA class IV. 4. Chronic kidney disease, could be cardiorenal, creat down to 2.6. 5. Non-ischemic cardiomyopathy, stage D, continue GDMT. Subjective Subjective Sinus rhythm at 77. Objective Last 24 Hour Vital Signs Date Time Temp Pulse Resp B/P (MAP) Pulse Ox O2 Delivery O2 Flow Rate FiO2 06/04/17 22:30 114/57 06/04/17 20:00 98.6 88 20 93/64 95 Room Air 98.6 06/04/17 19:23 95 Nasal Cannula 3.0 32 06/04/17 19:23 64 20 Nasal Cannula 3.0 32 06/04/17 19:23 Nasal Cannula 3.0 32 06/04/17 17:00 77 92/66 06/04/17 16:14 92/66 06/04/17 15:47 97.3 77 18 89/63 97 97.3 06/04/17 12:00 97.3 73 18 98/56 95 97.3 06/04/17 08:59 119 98/50 06/04/17 08:13 Nasal Cannula 3.0 32 06/04/17 08:13 65 18 Nasal Cannula 3.0 32 06/04/17 08:13 98 Nasal Cannula 3.0 32 06/04/17 08:00 98.1 119 18 98/50 95 98.1 06/04/17 04:00 97.7 75 18 90/65 92 97.7 06/04/17 00:00 97.8 65 18 96 97.8 06/04/17 00:00 91/50 Nasal Cannula 2.0 Intake and Output 06/03/17 06/04/17 19:00 07:00 Intake Total 580 ml 600 ml Output Total 1300 ml 2900 ml Balance -720 ml -2300 ml Intake Oral 580 ml 600 ml Output Urine Total 1300 ml 2900 ml 2D Echo: 4Ch-DCM, EF 10%, Global AK, septal DK, RVSP 60mmHg, Mod MR,Mild AR Laboratory Tests Test 3/24/18 05:55 Prothrombin Time 15.4 SEC (9.30-11.50) H Prothromb Time International Ratio 1.5 (0.9-1.1) H Sodium Level 139 MMOL/L (136-145) Potassium Level 3.5 MMOL/L (3.5-5.1) Chloride Level 94 MMOL/L (98-107) L Carbon Dioxide Level 44 MMOL/L (21-32) *H Anion Gap 1 mmol/L (5-15) L Blood Urea Nitrogen 43 mg/dL (7-18) H Creatinine 2.9 MG/DL (0.55-1.30) H Estimat Glomerular Filtration Rate 27.0 mL/min (>60) Glucose Level 117 MG/DL (74-106) H Calcium Level 8.8 MG/DL (8.5-10.1) Magnesium Level 2.4 MG/DL (1.8-2.4) Objective HEENT: Atraumatic and normocephalic. ENT, pupils are equal, round, and reactive to light and accommodation. Extraocular muscles intact. NECK: JVP of about 15 cm. No carotid bruits. Carotid upstrokes 2+. CARDIOVASCULAR: Normal S1 and S2. Distant, regular rate and rhythm. A 2/6 holosystolic murmur at the apex. LUNGS: Diminished breath sounds in both bases with increased dullness. There are scattered crackles in both bases in both lungs. Diminished expansion of the chest bilaterally. ABDOMEN: Soft, nontender, and nondistended. No hepatosplenomegaly. Positive bowel sounds. EXTREMITIES: There is 4+ bilateral edema SHAVONNE VILLA Jun 04, 2017 23:57
[2017-06-05] VITALS (7 sets, daily range): BP systolic 88–137; BP diastolic 55–65
[2017-06-05] MEDS: Enoxaparin 100mg Inj SUBQ SCH ×2 (06:57→17:09)
[2017-06-05 07:39] LABS: INR 1.7 (0.9-1.1)
[2017-06-05] MEDS: Carvedilol 6.25mg Tab ORAL SCH ×2 (08:53→17:03)
[2017-06-05] MEDS: Zidovudine 100mg cap ORAL SCH ×2 (09:06→17:04)
[2017-06-05] MEDS: EMTRIVA ORAL SCH (09:06)
[2017-06-05] MEDS: TIVICAY 50 MG ORAL SCH (09:06)
[2017-06-05] MEDS ORDERED: Tubing IV Secondary IV ONE ×2 (10:49→10:54)
[2017-06-05] MEDS ORDERED: NS 275ml ONE ×2 (10:49→10:54)
--- NOTE | 2017-06-05 11:20 | Pulmonology Progress Note ---
Assessment/Plan Assessment/Plan ASSESSMENT acute systolic and diastolic CHF exacerbation nonischemic cardiomyopathy ( EF<10%) acute bronchitis CO2 retention, provably acute on chronic Status post cardiac resynchronization therapy plus defibrillator implantation, end stage CHF, NYHA class IV CKD, possible cardiorenal moderate to severe MR severe pulmonary HTN possible LV thrombus HIV status Hepatitis C PLAN OF CARE [facility] floor O2 HHN prn diuresis with Lasix and Zaroxolyn, monitor cardiorenal parameters, volumes ECHO with EF<10%, RVSP of 60 c/w severe pulmonary HTn and moderate to severe MR possible LV thrombus, on anticoagulation keep Coumadin in therapeutic range 2-3, today INR-1.7 still subtherapeutic has AICD medical management of CHF with BB, diuretic, add JOSELITO when BP allows cardio follows continue Diamox in hope to reset CO2 titrate O2 to lowest to keep pulse ox above 90% if pulse ox 90% on RA dc O2 fup with CXR a/tussive prn empiric abx for acute bronchitis nephro follows renal US no hydro, normal bilateral echogenicity, bladder with 244 ml of urine K replaced as per nephro orders continue ART therapy case discussed and evaluated by supervising physician case discussed and evaluated by supervising physician Subjective Allergies: Coded Allergies: No Known Allergies (Unverified , 05/29/17) Subjective denies chest pain, on O2 via NC CO2 44 on BMP 06/04 started on Diamox Objective Last 24 Hour Vital Signs Date Time Temp Pulse Resp B/P (MAP) Pulse Ox O2 Delivery O2 Flow Rate FiO2 06/05/17 08:53 92 88/55 06/05/17 08:03 Nasal Cannula 2.0 28 06/05/17 08:03 92 20 Nasal Cannula 2.0 28 06/05/17 08:03 92 Nasal Cannula 2.0 28 06/05/17 08:00 97.8 69 18 88/55 95 Nasal Cannula 2.0 97.8 06/05/17 04:30 65 06/05/17 04:00 97.3 116 17 92/55 98 Room Air 97.3 06/05/17 00:00 98.9 66 18 137/65 98 Room Air 98.9 06/04/17 22:30 114/57 06/04/17 20:00 98.6 88 20 93/64 95 Room Air 98.6 06/04/17 19:23 95 Nasal Cannula 3.0 32 06/04/17 19:23 64 20 Nasal Cannula 3.0 32 06/04/17 19:23 Nasal Cannula 3.0 32 06/04/17 17:00 77 92/66 06/04/17 16:14 92/66 06/04/17 15:47 97.3 77 18 89/63 97 97.3 06/04/17 12:00 97.3 73 18 98/56 95 97.3 Intake and Output 06/04/17 06/05/17 19:00 07:00 Intake Total 420 ml 680 ml Output Total 2200 ml 2350 ml Balance -1780 ml -1670 ml Intake Oral 370 ml 680 ml IV Total 50 ml Output Urine Total 2200 ml 2350 ml # Voids 1 Objective General Appearance: no acute distress HEENT: normocephalic, atraumatic, anicteric, mucous membranes moist Respiratory/Chest: decreased breath sounds, crackles/rales - scattered crackles at bases Cardiovascular: normal rate, murmur systolic - 2/6 Abdomen: normal bowel sounds, soft, non tender Neurologic/Psychiatric: alert, responsive Musculoskeletal: normal muscle bulk Laboratory Tests 06/05/17 05:20: Prothrombin Time 18.2H, Prothromb Time International Ratio 1.7H Current Medications Medications (Trade) Dose Ordered Sig/Kane Route PRN Reason Start Time Stop Time Status Last Admin Dose Admin Acetaminophen (Tylenol) 650 mg Q4H PRN ORAL Fever 06/02/17 04:00 06/28/17 19:59 Acetazolamide (Diamox) 250 mg TWICE A DAY ORAL 06/04/17 15:00 07/04/17 14:59 06/05/17 09:06 Albuterol/ Ipratropium (Albuterol/ Ipratropium) 3 ml Q4H PRN HHN Shortness of Breath 06/04/17 13:30 06/09/17 13:29 Atorvastatin Calcium (Lipitor) 40 mg BEDTIME ORAL 06/02/17 21:00 06/28/17 20:59 06/04/17 22:09 Carvedilol (Coreg) 6.25 mg BID ORAL 06/05/17 09:00 06/29/17 08:59 Dextrose (Dextrose 50%) STAT PRN IV Hypoglycemia 06/02/17 20:00 06/28/17 19:59 Enoxaparin Sodium (Lovenox) 100 mg Q12HR@0600,1800 SUBQ 06/04/17 15:30 07/04/17 15:29 06/05/17 06:57 Furosemide (Lasix) 40 mg EVERY 8 HOURS IV 06/02/17 06:00 06/28/17 21:59 06/05/17 06:53 Gabapentin (Neurontin) 300 mg EVERY 6 HOURS ORAL 06/02/17 06:00 06/29/17 00:00 06/05/17 06:53 Levofloxacin 50 ml @ 50 mls/hr Q24H IVPB 06/02/17 14:00 06/07/17 13:59 06/04/17 13:15 Metolazone (Zaroxolyn) 5 mg DAILY ORAL 06/02/17 09:00 06/29/17 13:59 06/05/17 09:06 Ondansetron HCl (Zofran) 4 mg Q6H PRN IVP Nausea & Vomiting 06/02/17 02:00 06/28/17 19:59 Patient Own Medication (Patient's Own Med) 1 ea DAILY ORAL 06/02/17 09:00 07/02/17 08:59 06/05/17 09:06 Patient Own Medication (Patient's Own Med) 1 ea QOD ORAL 06/03/17 09:00 07/01/17 11:59 06/05/17 09:06 Polyethylene Glycol (Miralax) 17 gm DAILYPRN PRN ORAL Constipation 06/02/17 20:00 06/28/17 19:59 Promethazine HCl/ Codeine (Phenergan with Codeine) 5 ml Q4H PRN ORAL For Cough 06/02/17 02:00 06/28/17 21:59 06/03/17 23:39 Temazepam (Restoril) 15 mg HSPRN PRN ORAL Insomnia 06/04/17 13:30 06/07/17 13:30 Warfarin Sodium (Coumadin per pharmacy) 1 ea DAILYPRN PRN MISC Per rx protocol 06/02/17 09:00 06/29/17 08:59 Warfarin Sodium (Coumadin) 5 mg COUMADIN ONCE ORAL 06/05/17 17:00 06/05/17 17:01 Zidovudine (Retrovir) 300 mg BID ORAL 06/02/17 09:00 07/01/17 17:59 06/05/17 09:06 Naren ([facility])Maryann NP Jun 05, 2017 11:20
--- NOTE | 2017-06-05 16:59 | Nephrology Progress Note ---
Assessment/Plan Assessment 1. Acute renal failure. The etiology of acute renal failure including cardiorenal syndrome. 2. Chronic kidney disease. 3. Congestive heart failure exacerbation. 4. Fluid overload. 5. hypokalemia Plan PLAN to continue bumax replace k daily wt check in and out put avoid NSAID Subjective Constitutional: Reports: no symptoms HEENT: Reports: no symptoms Genitourinary: Reports: no symptoms Neurologic/Psychiatric: Reports: no symptoms Subjective alert and awake feeling better sob has resolved Objective Objective Last 24 Hour Vital Signs Date Time Temp Pulse Resp B/P (MAP) Pulse Ox O2 Delivery O2 Flow Rate FiO2 06/05/17 12:00 98.1 69 18 94/55 100 Nasal Cannula 2.0 98.1 06/05/17 08:53 92 88/55 06/05/17 08:03 Nasal Cannula 2.0 28 06/05/17 08:03 92 20 Nasal Cannula 2.0 28 06/05/17 08:03 92 Nasal Cannula 2.0 28 06/05/17 08:00 97.8 69 18 88/55 95 Nasal Cannula 2.0 97.8 06/05/17 04:30 65 06/05/17 04:00 97.3 116 17 92/55 98 Room Air 97.3 06/05/17 00:00 98.9 66 18 137/65 98 Room Air 98.9 06/04/17 22:30 114/57 06/04/17 20:00 98.6 88 20 93/64 95 Room Air 98.6 06/04/17 19:23 95 Nasal Cannula 3.0 32 06/04/17 19:23 64 20 Nasal Cannula 3.0 32 06/04/17 19:23 Nasal Cannula 3.0 32 06/04/17 17:00 77 92/66 Intake and Output 06/04/17 06/05/17 19:00 07:00 Intake Total 420 ml 680 ml Output Total 2200 ml 2350 ml Balance -1780 ml -1670 ml Intake Oral 370 ml 680 ml IV Total 50 ml Output Urine Total 2200 ml 2350 ml # Voids 1 Laboratory Tests 06/05/17 05:20: Prothrombin Time 18.2H, Prothromb Time International Ratio 1.7H Height (Feet): 6 Height (Inches): 1.00 Weight (Pounds): 210 Objective HEAD AND NECK: No JVP. No LAD. No thyromegaly. Extraocular movements intact. Pupils are reactive to light and accommodation. LUNGS: Decreased breathing sounds on both sides. CARDIAC: Regular rate and rhythm. S1 and S2. No murmur. No rub. ABDOMEN: Soft, nontender, and nondistended. EXTREMITIES: 4+ edema. No clubbing. No cyanosis. MARGARITO MARTIN Jun 05, 2017 16:59
[2017-06-05] MEDS ORDERED: Warfarin Sodium 5mg ORAL ONE (17:00)
--- NOTE | 2017-06-05 20:42 | General Progress Note ---
Assessment/Plan Problem List: (1) HIV (human immunodeficiency virus infection) ICD Codes: B20 - Human immunodeficiency virus [HIV] disease SNOMED: 97999780 (2) Renal failure ICD Codes: N19 - Unspecified kidney failure SNOMED: 41294875 Qualifiers: Qualified Codes: N17.9 - Acute kidney failure, unspecified; N18.3 - Chronic kidney disease, stage 3 (moderate) (3) Hepatitis C ICD Codes: B19.20 - Unspecified viral hepatitis C without hepatic coma SNOMED: 99328873 Qualifiers: Qualified Codes: B18.2 - Chronic viral hepatitis C (4) Congestive heart failure ICD Codes: I50.9 - Heart failure, unspecified SNOMED: 39994770 Qualifiers: Qualified Codes: I50.23 - Acute on chronic systolic (congestive) heart failure (5) H/O deep venous thrombosis ICD Codes: Z86.718 - Personal history of other venous thrombosis and embolism SNOMED: 557908823 (6) Anasarca ICD Codes: R60.1 - Generalized edema SNOMED: 401059090, 257076727 (7) Anemia ICD Codes: D64.9 - Anemia, unspecified SNOMED: 038025983 (8) Edema ICD Codes: R60.9 - Edema, unspecified SNOMED: 995361644, 574613334 (9) SOB (shortness of breath) ICD Codes: R06.02 - Shortness of breath SNOMED: 422189468 (10) HTN (hypertension) ICD Codes: I10 - Essential (primary) hypertension SNOMED: 16791336 Status: progressing Assessment/Plan dyspnea afebrile chf immune deficiency fluid management per renal anasarca malnutrition anemia reviewed chart and labs Subjective ROS Limited/Unobtainable: Yes Allergies: Coded Allergies: No Known Allergies (Unverified , 05/29/17) Objective Last 24 Hour Vital Signs Date Time Temp Pulse Resp B/P (MAP) Pulse Ox O2 Delivery O2 Flow Rate FiO2 06/05/17 17:10 94/58 06/05/17 17:03 69 94/55 06/05/17 16:00 97.0 110 18 100/64 97 Nasal Cannula 2.0 97.0 06/05/17 12:00 98.1 69 18 94/55 100 Nasal Cannula 2.0 98.1 06/05/17 08:53 92 88/55 3/25/18 08:03 Nasal Cannula 2.0 28 06/05/17 08:03 92 20 Nasal Cannula 2.0 28 06/05/17 08:03 92 Nasal Cannula 2.0 28 06/05/17 08:00 97.8 69 18 88/55 95 Nasal Cannula 2.0 97.8 06/05/17 04:30 65 06/05/17 04:00 97.3 116 17 92/55 98 Room Air 97.3 06/05/17 00:00 98.9 66 18 137/65 98 Room Air 98.9 06/04/17 22:30 114/57 Intake and Output 06/04/17 06/05/17 19:00 07:00 Intake Total 420 ml 680 ml Output Total 2200 ml 2350 ml Balance -1780 ml -1670 ml Intake Oral 370 ml 680 ml IV Total 50 ml Output Urine Total 2200 ml 2350 ml # Voids 1 Laboratory Tests 06/05/17 05:20: Prothrombin Time 18.2H, Prothromb Time International Ratio 1.7H Height (Feet): 6 Height (Inches): 1.00 Weight (Pounds): 210 Marguerite Hyatt MD Jun 05, 2017 20:42
[2017-06-05] MEDS: Atorvastatin 20mg tab ORAL SCH (21:48)
--- NOTE | 2017-06-05 23:10 | Cardiology Progress Note ---
Assessment/Plan Assessment/Plan 1. Acute systolic and diastolic congestive heart failure. Continue lasix, decrease metolazone as creatinine has risen to 2.9. 2. Possible left ventricular thrombus, continue Coumadin, INR at 1.7. 3. Status post cardiac resynchronization therapy plus defibrillator implantation , NYHA class IV. 4. Chronic kidney disease, could be cardiorenal, creat up at 2.9. 5. Non-ischemic cardiomyopathy, stage D, continue GDMT. Subjective Subjective No cardiac events have been noted. Objective Last 24 Hour Vital Signs Date Time Temp Pulse Resp B/P (MAP) Pulse Ox O2 Delivery O2 Flow Rate FiO2 06/05/17 20:55 63 20 Nasal Cannula 2.0 28 06/05/17 20:55 Nasal Cannula 2.0 28 06/05/17 20:55 93 Nasal Cannula 2.0 28 06/05/17 20:00 98.1 78 20 94/56 91 Room Air 98.1 06/05/17 17:10 94/58 06/05/17 17:03 69 94/55 06/05/17 16:00 97.0 110 18 100/64 97 Nasal Cannula 2.0 97.0 06/05/17 12:00 98.1 69 18 94/55 100 Nasal Cannula 2.0 98.1 06/05/17 08:53 92 88/55 06/05/17 08:03 Nasal Cannula 2.0 28 06/05/17 08:03 92 20 Nasal Cannula 2.0 28 06/05/17 08:03 92 Nasal Cannula 2.0 28 06/05/17 08:00 97.8 69 18 88/55 95 Nasal Cannula 2.0 97.8 06/05/17 04:30 65 06/05/17 04:00 97.3 116 17 92/55 98 Room Air 97.3 06/05/17 00:00 98.9 66 18 137/65 98 Room Air 98.9 Intake and Output 06/04/17 06/05/17 19:00 07:00 Intake Total 420 ml 680 ml Output Total 2200 ml 2350 ml Balance -1780 ml -1670 ml Intake Oral 370 ml 680 ml IV Total 50 ml Output Urine Total 2200 ml 2350 ml # Voids 1 2D Echo: 4Ch-DCM, EF 10%, Global AK, septal DK, RVSP 60mmHg, Mod MR,Mild AR Laboratory Tests Test 06/05/17 05:20 Prothrombin Time 18.2 SEC (9.30-11.50) H Prothromb Time International Ratio 1.7 (0.9-1.1) H Objective HEENT: Atraumatic and normocephalic. ENT, pupils are equal, round, and reactive to light and accommodation. Extraocular muscles intact. NECK: JVP of about 15 cm. No carotid bruits. Carotid upstrokes 2+. CARDIOVASCULAR: Normal S1 and S2. Distant, regular rate and rhythm. A 2/6 holosystolic murmur at the apex. LUNGS: Diminished breath sounds in both bases with increased dullness. There are scattered crackles in both bases in both lungs. Diminished expansion of the chest bilaterally. ABDOMEN: Soft, nontender, and nondistended. No hepatosplenomegaly. Positive bowel sounds. EXTREMITIES: There is 2+ bilateral edema SHAVONNE VILLA Jun 05, 2017 23:10
[2017-06-06] VITALS (7 sets, daily range): BP systolic 86–109; BP diastolic 53–83
[2017-06-06] MEDS: Enoxaparin 100mg Inj SUBQ SCH (05:12)
[2017-06-06 07:11] LABS: BLOOD UREA NITROGEN 47 mg/dL (7-18); CALCIUM 9.3 MG/DL (8.5-10.1); CHLORIDE 91 MMOL/L (98-107); CREATININE 3.1 MG/DL (0.55-1.30); POTASSIUM 3.9 MMOL/L (3.5-5.1); SODIUM 138 MMOL/L (136-145)
[2017-06-06 07:14] LABS: CARBON DIOXIDE > 45 MMOL/L (21-32)
[2017-06-06 07:15] LABS: HEMATOCRIT 35.1 % (42.0-52.0); HEMOGLOBIN 11.5 G/DL (14.2-18.0); MEAN CORPUSCULAR VOLUME 119 FL (80-99); PLATELET COUNT 269 K/UL (150-450); RED BLOOD COUNT 2.96 M/UL (4.70-6.10); RED CELL DISTRIBUTION WIDTH 17.5 % (11.6-14.8); WHITE BLOOD COUNT 7.9 K/UL (4.8-10.8)
[2017-06-06] MEDS: Carvedilol 6.25mg Tab ORAL SCH ×2 (09:00→18:00)
--- NOTE | 2017-06-06 09:19 | Pulmonology Progress Note ---
Assessment/Plan Assessment/Plan ASSESSMENT acute systolic and diastolic CHF exacerbation nonischemic cardiomyopathy ( EF<10%) acute bronchitis CO2 retention, probably acute on chronic hypotension Status post cardiac resynchronization therapy plus defibrillator implantation, end stage CHF, NYHA class IV CKD, possible cardiorenal moderate to severe MR severe pulmonary HTN possible LV thrombus HIV status Hepatitis C PLAN OF CARE MS floor O2 HHN prn diuresis with Lasix and Zaroxolyn, monitor cardiorenal parameters, volumes ECHO with EF<10%, RVSP of 60 c/w severe pulmonary HTn and moderate to severe MR possible LV thrombus, on anticoagulation keep Coumadin in therapeutic range 2-3, 06/06 INR- 2.o dc Lovenox, continue Coumadin to keep INR in therapeutic range BP low ? excess diuretic start Midodrine has AICD medical management of CHF with BB, diuretic, add JOSELITO when BP allows cardio follows continue Diamox in hope to reset CO2, CO2 > 45 on BMP , on RA now fup CXR today90 Improved interstitial congestion, over 2 days a/tussive prn empiric abx for acute bronchitis creat worse-up to 05/12 this am dose of Zaroxolyn decreased by cardio watch renal parameters nephro follows renal US no hydro, normal bilateral echogenicity, bladder with 244 ml of urine continue ART therapy case discussed and evaluated by supervising physician Subjective Allergies: Coded Allergies: No Known Allergies (Unverified , 05/29/17) Subjective denies chest pain, on RA pulse ox stable Objective Last 24 Hour Vital Signs Date Time Temp Pulse Resp B/P (MAP) Pulse Ox O2 Delivery O2 Flow Rate FiO2 06/06/17 04:00 97.9 75 19 96/61 92 Room Air 97.9 06/06/17 00:00 97.3 99 18 90/57 90 Room Air 97.3 06/05/17 20:55 63 20 Nasal Cannula 2.0 28 06/05/17 20:55 Nasal Cannula 2.0 28 06/05/17 20:55 93 Nasal Cannula 2.0 28 06/05/17 20:00 98.1 78 20 94/56 91 Room Air 98.1 06/05/17 17:10 94/58 06/05/17 17:03 69 94/55 06/05/17 16:00 97.0 110 18 100/64 97 Nasal Cannula 2.0 97.0 06/05/17 12:00 98.1 69 18 94/55 100 Nasal Cannula 2.0 98.1 Intake and Output 06/05/17 06/06/17 19:00 07:00 Intake Total 1020 ml 120 ml Output Total 3000 ml 2350 ml Balance -1980 ml -2230 ml Intake Oral 1020 ml 120 ml Output Urine Total 3000 ml 2350 ml Objective General Appearance: no acute distress HEENT: normocephalic, atraumatic, anicteric, mucous membranes moist Respiratory/Chest: decreased breath sounds, crackles/rales - scattered crackles at bases Cardiovascular: normal rate, murmur systolic - / Abdomen: normal bowel sounds, soft, non tender Neurologic/Psychiatric: alert, responsive Musculoskeletal: normal muscle bulk Laboratory Tests 06/06/17 05:35: White Blood Count 7.9, Red Blood Count 2.96L, Hemoglobin 11.5L, Hematocrit 35.1L , Mean Corpuscular Volume 119H, Mean Corpuscular Hemoglobin 38.9H, Mean Corpuscular Hemoglobin Concent 32.8, Red Cell Distribution Width 17.5H, Platelet Count 269, Mean Platelet Volume 7.9, Neutrophils (%) (Auto) , Lymphocytes (%) (Auto) , Monocytes (%) (Auto) , Eosinophils (%) (Auto) , Basophils (%) (Auto) , Neutrophils % (Manual) [Pending], Lymphocytes % (Manual) [Pending], Platelet Estimate [Pending], Platelet Morphology [Pending], Sodium Level 138, Potassium Level 3.9, Chloride Level 91L, Carbon Dioxide Level > 45*H , Blood Urea Nitrogen 47H, Creatinine 3.1H, Estimat Glomerular Filtration Rate 25.1, Glucose Level 90, Calcium Level 9.3 Current Medications Medications (Trade) Dose Ordered Sig/Kane Route PRN Reason Start Time Stop Time Status Last Admin Dose Admin Acetaminophen (Tylenol) 650 mg Q4H PRN ORAL Fever 06/02/17 04:00 06/28/17 19:59 Acetazolamide (Diamox) 250 mg TWICE A DAY ORAL 06/04/17 15:00 07/04/17 14:59 06/05/17 17:04 Albuterol/ Ipratropium (Albuterol/ Ipratropium) 3 ml Q4H PRN HHN Shortness of Breath 06/04/17 13:30 06/09/17 13:29 Atorvastatin Calcium (Lipitor) 40 mg BEDTIME ORAL 06/02/17 21:00 06/28/17 20:59 06/05/17 21:48 Carvedilol (Coreg) 6.25 mg BID ORAL 06/05/17 09:00 06/29/17 08:59 06/05/17 17:03 Dextrose (Dextrose 50%) STAT PRN IV Hypoglycemia 06/02/17 20:00 06/28/17 19:59 Enoxaparin Sodium (Lovenox) 100 mg Q12HR@0600,1800 SUBQ 06/04/17 15:30 07/04/17 15:29 06/05/17 17:09 Furosemide (Lasix) 40 mg EVERY 8 HOURS IV 06/02/17 06:00 06/28/17 21:59 06/06/17 05:09 Gabapentin (Neurontin) 300 mg EVERY 6 HOURS ORAL 06/02/17 06:00 06/29/17 00:00 06/06/17 05:10 Levofloxacin 50 ml @ 50 mls/hr Q24H IVPB 06/02/17 14:00 06/07/17 13:59 06/05/17 13:03 Metolazone (Zaroxolyn) 2.5 mg DAILY ORAL 06/06/17 09:00 06/29/17 13:59 Ondansetron HCl (Zofran) 4 mg Q6H PRN IVP Nausea & Vomiting 06/02/17 02:00 06/28/17 19:59 Patient Own Medication (Patient's Own Med) 1 ea DAILY ORAL 06/02/17 09:00 07/02/17 08:59 06/05/17 09:06 Patient Own Medication (Patient's Own Med) 1 ea QOD ORAL 06/03/17 09:00 07/01/17 11:59 06/05/17 09:06 Polyethylene Glycol (Miralax) 17 gm DAILYPRN PRN ORAL Constipation 06/02/17 20:00 06/28/17 19:59 Promethazine HCl/ Codeine (Phenergan with Codeine) 5 ml Q4H PRN ORAL For Cough 06/02/17 02:00 06/28/17 21:59 06/03/17 23:39 Temazepam (Restoril) 15 mg HSPRN PRN ORAL Insomnia 06/04/17 13:30 06/07/17 13:30 Warfarin Sodium (Coumadin per pharmacy) 1 ea DAILYPRN PRN MISC Per rx protocol 06/02/17 09:00 06/29/17 08:59 Zidovudine (Retrovir) 300 mg BID ORAL 06/02/17 09:00 07/01/17 17:59 06/05/17 17:04 Naren ([facility])Maryann NP Jun 06, 2017 09:19
[2017-06-06] MEDS: Zidovudine 100mg cap ORAL SCH ×2 (09:43→18:13)
--- NOTE | 2017-06-06 09:47 | Nephrology Progress Note ---
Assessment/Plan Assessment 1. Acute renal failure. The etiology of acute renal failure including cardiorenal syndrome. 2. Chronic kidney disease. 3. Congestive heart failure exacerbation. 4. Fluid overload. 5. hypokalemia Plan PLAN to continue bumax replace k daily wt check in and out put avoid NSAID Subjective Subjective alert and awake feeling better sob has resolved Objective Objective Last 24 Hour Vital Signs Date Time Temp Pulse Resp B/P (MAP) Pulse Ox O2 Delivery O2 Flow Rate FiO2 06/06/17 09:00 93 Nasal Cannula 2.0 28 06/06/17 09:00 73 18 Nasal Cannula 2.0 28 06/06/17 09:00 Nasal Cannula 2.0 28 06/06/17 04:00 97.9 75 19 96/61 92 Room Air 97.9 06/06/17 00:00 97.3 99 18 90/57 90 Room Air 97.3 06/05/17 20:55 63 20 Nasal Cannula 2.0 28 06/05/17 20:55 Nasal Cannula 2.0 28 06/05/17 20:55 93 Nasal Cannula 2.0 28 06/05/17 20:00 98.1 78 20 94/56 91 Room Air 98.1 06/05/17 17:10 94/58 06/05/17 17:03 69 94/55 06/05/17 16:00 97.0 110 18 100/64 97 Nasal Cannula 2.0 97.0 06/05/17 12:00 98.1 69 18 94/55 100 Nasal Cannula 2.0 98.1 Intake and Output 06/05/17 06/06/17 19:00 07:00 Intake Total 1020 ml 120 ml Output Total 3000 ml 2350 ml Balance -1980 ml -2230 ml Intake Oral 1020 ml 120 ml Output Urine Total 3000 ml 2350 ml Laboratory Tests 06/06/17 05:35: White Blood Count 7.9, Red Blood Count 2.96L, Hemoglobin 11.5L, Hematocrit 35.1L , Mean Corpuscular Volume 119H, Mean Corpuscular Hemoglobin 38.9H, Mean Corpuscular Hemoglobin Concent 32.8, Red Cell Distribution Width 17.5H, Platelet Count 269, Mean Platelet Volume 7.9, Neutrophils (%) (Auto) , Lymphocytes (%) (Auto) , Monocytes (%) (Auto) , Eosinophils (%) (Auto) , Basophils (%) (Auto) , Neutrophils % (Manual) [Pending], Lymphocytes % (Manual) [Pending], Platelet Estimate [Pending], Platelet Morphology [Pending], Sodium Level 138, Potassium Level 3.9, Chloride Level 91L, Carbon Dioxide Level > 45*H , Blood Urea Nitrogen 47H, Creatinine 3.1H, Estimat Glomerular Filtration Rate 25.1, Glucose Level 90, Calcium Level 9.3 Height (Feet): 6 Height (Inches): 1.00 Weight (Pounds): 199 Objective HEAD AND NECK: No JVP. No LAD. No thyromegaly. Extraocular movements intact. Pupils are reactive to light and accommodation. LUNGS: Decreased breathing sounds on both sides. CARDIAC: Regular rate and rhythm. S1 and S2. No murmur. No rub. ABDOMEN: Soft, nontender, and nondistended. EXTREMITIES: 4+ edema. No clubbing. No cyanosis. MARGARITO MARTIN Jun 06, 2017 09:47
[2017-06-06] MEDS: TIVICAY 50 MG ORAL SCH (10:48)
--- NOTE | 2017-06-06 11:11 | Diagnostic Imaging Report ---
Indication: Shortness of breath Technique: One view of the chest Comparison: 06/04/2017 Findings: Heart is enlarged. Previously demonstrated interstitial congestion has improved. Left chest biventricular AICD again demonstrated. There is interim Impression: Improved interstitial congestion, over 2 days
--- NOTE | 2017-06-06 13:18 | General Progress Note ---
Assessment/Plan Problem List: (1) HIV (human immunodeficiency virus infection) ICD Codes: B20 - Human immunodeficiency virus [HIV] disease SNOMED: 23510285 (2) Renal failure ICD Codes: N19 - Unspecified kidney failure SNOMED: 21012035 Qualifiers: Qualified Codes: N17.9 - Acute kidney failure, unspecified; N18.3 - Chronic kidney disease, stage 3 (moderate) (3) Hepatitis C ICD Codes: B19.20 - Unspecified viral hepatitis C without hepatic coma SNOMED: 74591584 Qualifiers: Qualified Codes: B18.2 - Chronic viral hepatitis C (4) Congestive heart failure ICD Codes: I50.9 - Heart failure, unspecified SNOMED: 40893073 Qualifiers: Qualified Codes: I50.23 - Acute on chronic systolic (congestive) heart failure (5) H/O deep venous thrombosis ICD Codes: Z86.718 - Personal history of other venous thrombosis and embolism SNOMED: 520715302 (6) Anasarca ICD Codes: R60.1 - Generalized edema SNOMED: 302949768, 222864293 (7) Anemia ICD Codes: D64.9 - Anemia, unspecified SNOMED: 316172435 (8) Edema ICD Codes: R60.9 - Edema, unspecified SNOMED: 799215229, 924512556 (9) SOB (shortness of breath) ICD Codes: R06.02 - Shortness of breath SNOMED: 822443207 (10) HTN (hypertension) ICD Codes: I10 - Essential (primary) hypertension SNOMED: 32832606 Status: progressing Assessment/Plan still has dyspnea need cardiac clearance for dc afebrile chf exac anemia reviewed chart and labs Subjective ROS Limited/Unobtainable: Yes Allergies: Coded Allergies: No Known Allergies (Unverified , 05/29/17) Objective Last 24 Hour Vital Signs Date Time Temp Pulse Resp B/P (MAP) Pulse Ox O2 Delivery O2 Flow Rate FiO2 06/06/17 12:00 98.1 65 20 88/54 97 Nasal Cannula 2.0 98.1 06/06/17 09:00 93 Nasal Cannula 2.0 28 06/06/17 09:00 73 18 Nasal Cannula 2.0 28 06/06/17 09:00 65 93/57 06/06/17 09:00 Nasal Cannula 2.0 28 06/06/17 08:00 96.5 65 20 93/57 100 Nasal Cannula 2.0 96.5 06/06/17 04:00 97.9 75 19 96/61 92 Room Air 97.9 06/06/17 00:00 97.3 99 18 90/57 90 Room Air 97.3 06/05/17 20:55 63 20 Nasal Cannula 2.0 28 06/05/17 20:55 Nasal Cannula 2.0 28 06/05/17 20:55 93 Nasal Cannula 2.0 28 06/05/17 20:00 98.1 78 20 94/56 91 Room Air 98.1 06/05/17 17:10 94/58 06/05/17 17:03 69 94/55 06/05/17 16:00 97.0 110 18 100/64 97 Nasal Cannula 2.0 97.0 Intake and Output 06/05/17 06/06/17 19:00 07:00 Intake Total 1020 ml 120 ml Output Total 3000 ml 2350 ml Balance -1980 ml -2230 ml Intake Oral 1020 ml 120 ml Output Urine Total 3000 ml 2350 ml Laboratory Tests 06/06/17 05:35: White Blood Count 7.9, Red Blood Count 2.96L, Hemoglobin 11.5L, Hematocrit 35.1L , Mean Corpuscular Volume 119H, Mean Corpuscular Hemoglobin 38.9H, Mean Corpuscular Hemoglobin Concent 32.8, Red Cell Distribution Width 17.5H, Platelet Count 269, Mean Platelet Volume 7.9, Neutrophils (%) (Auto) , Lymphocytes (%) (Auto) , Monocytes (%) (Auto) , Eosinophils (%) (Auto) , Basophils (%) (Auto) , Differential Total Cells Counted 100, Neutrophils % ( Manual) 10L, Lymphocytes % (Manual) 73H, Monocytes % (Manual) 17H, Eosinophils % (Manual) 0, Basophils % (Manual) 0, Band Neutrophils 0, Platelet Estimate Adequate, Platelet Morphology Normal, Hypochromasia 1+, Anisocytosis 1+, Macrocytosis 2+, Sodium Level 138, Potassium Level 3.9, Chloride Level 91L, Carbon Dioxide Level > 45*H, Blood Urea Nitrogen 47H, Creatinine 3.1H, Estimat Glomerular Filtration Rate 25.1, Glucose Level 90, Calcium Level 9.3 Height (Feet): 6 Height (Inches): 1.00 Weight (Pounds): 199 Marguerite Hyatt MD Jun 06, 2017 13:18
[2017-06-06 15:01] LABS: INR 2.3 (0.9-1.1)
[2017-06-06] MEDS ORDERED: Warfarin Sodium 4mg PO ONE (17:00)
--- NOTE | 2017-06-09 08:09 | Discharge Summary ---
Discharge Summary Hospital Course Date of Admission May 29, 2017 at 15:55 Date of Discharge Jun 06, 2017 at 20:40 Admitting Diagnosis Congestive Heart Failure HPI Shelia Corrales is a 62 year old male who was admitted on May 29, 2017 at 15:55 for Congestive Heart Failure Hospital Course dc summary #[id number] Discharge Discharge Disposition Patient was discharged to Home with Home Health(06) Naren ([facility])Maryann NP Jun 09, 2017 08:09
--- NOTE | 2017-06-09 23:46 | Discharge Summary 2 SIG ---
DATE OF ADMISSION: 05/29/2017 DATE OF DISCHARGE: 06/06/2017 REASON FOR ADMISSION: 62-year-old male with history of end-stage cardiomyopathy, congestive heart failure, HIV, hepatitis C, AICD, presented to emergency department with dyspnea and orthopnea. The patient was recently hospitalized in [facility]. He reported to be hospitalized 5 times this month. The patient was discharged on Lasix and Bumex, however, stated that he was not putting enough of urine. Upon evaluation in the emergency room, the patient was tachycardic with a heart rate of 127. The patient required placement on 3 liters of oxygen with saturation of 96% thereafter. EKG showed paced rhythm with tachycardia. Chest x-ray revealed CHF and pacer with effusion. Normal leukocytosis, slight anemia, therapeutic INR, renal failure with BUN 43 and creatinine 3.1. Elevated troponin 0.099. Elevated pro BNP over 20,000. The patient was already on anticoagulation. Blood pressure was low and unable to give beta-luz or nitrate. No urine output while in the ED. Bumex given along with Lasix. The patient was admitted with diagnosis of CHF, elevated troponin, possible non-STEMI, renal failure, hepatitis C, HIV status. CONSULTANTS: 1. Manager Performance Improvement, Dr. Mccormick. 2. Copping Machine Operator, Dr. Thomas. 3. Safety Officer, Dr. Hodge. HOSPITAL COURSE: The patient was admitted. The patient was started on supplemental oxygen. Pulmonary toilet was provided as needed. The patient was started on diuretic. Cardiorenal parameters and volumes were closely monitored. Echocardiogram revealed severe global left ventricular hypokinesis, septal dyskinesis, ischemic cardiomyopathy cannot be excluded. Severe left ventricular enlargement, possible apical thrombus, left ventricular ejection fraction less than 10%. No evidence of pericardial effusion, moderate biatrial enlargement, moderate right ventricular enlargement, and moderate to severe mitral regurgitation, elevated left atrial pressure grade II, moderate tricuspid regurgitation, and right ventricular systolic pressure of 60 consistent with severe pulmonary hypertension. Manager Performance Improvement closely followed. Per pot room supervisor, the patient had acute systolic and diastolic congestive heart failure. The patient was on diuresis with Lasix and metolazone. Creatinine was raising up, and dose of metolazone was decreased. The patient was on anticoagulation due to the possible left ventricular thrombus. INR was closely monitored. The patient had NYHA class 4. Chronic kidney disease, likely cardiorenal. Creatinine was trending up. Medical management of nonischemic cardiomyopathy stage D was continued. Renal ultrasound revealed no hydronephrosis and normal bilateral kidney echogenicity, again likely cardiorenal syndrome. Blood pressure was low. The patient was started on midodrine. Medical management of CHF was provided with beta-luz and diuretics. JOSELITO inhibitor should be added when blood pressure allowed. The patient noted to have a CO2 retention, likely acute on chronic. i The patient was started on Diamox in hope to reset CO2. The patient was able to be weaned to the room air. Antitussive provided as needed. Chest x-ray on 06/06/2017 revealed improvement in congestion over two days. The patient was on empiric antibiotics for acute bronchitis. Pulmonary toilet was continued. The patient requested to go home. Otherwise, he stated that he will sign against medical advice. Chest x-ray improved. Otherwise, this unfortunate gentleman had end-stage cardiomyopathy and already receiving conservative medical management and had AICD. Coumadin was continued with pharmacy dosing tp keep INR in therapeutic range 2-3. HAART therapy was continued. The patient was stable for discharge home with home health services. FINAL DIAGNOSES: 1. Acute systolic and diastolic congestive heart failure exacerbation, 2. Nonischemic cardiomyopathy (ejection fraction less than 10%, stage D). 3. Acute bronchitis. 4. Carbon dioxide retention, likely acute on chronic. 5. Hypotension. 6. Status post cardiac resynchronization therapy plus defibrillator implantation. 7. End-stage congestive heart failure, [place] Heart Association class 4. 8. Chronic kidney disease, possible cardiorenal. 9. Moderate to severe mitral regurgitation. 10. Severe pulmonary hypertension. 11. Possible left ventricular thrombus. 12. Human immunodeficiency virus status. 13. Hepatitis C. 14. Hypokalemia. DISCHARGE MEDICATIONS: List of medication provided to patient. DISCHARGE INSTRUCTIONS: The patient discharged home with home health services to follow. Ludin Blair M.D. Maryann Sneed ([facility]mber N.PMirta DR: EDIN JOB#: [id number] CC: NIXON
--- NOTE | 2017-06-12 21:38 | Diagnostic Imaging Report ---
APPROVED REPORT CPT Code: 60920 Present Symptoms Lower Extremity Edema: Bilateral BILATERAL: Imaging reveals a patent deep venous system bilaterally. There is no evidence of thrombus within the common femoral, proximal superficial femoral, popliteal or tibial segments. The greater saphenous veins are also within normal limits. Doppler indicates normal spontaneous flow within these segments. Mid to distal superficial femoral veins not well visualized, bilaterally.
== END 2017-06-06 20:40 | disposition home or self-care (01) | DRG 194 ==
LOC: EDSEX 14:51 → EMR 15:48 → 2E 15:55 → EDBEDREQ 16:32 → 2W 17:27 → 2E 18:02 → 4W 06-02 00:56
DX: I13.0 Hypertensive heart and chronic kidney disease with heart failure and stage 1 through stage 4 chronic kidney disease, or unspecified chronic kidney disease (principal); I21.4 Non-ST elevation (NSTEMI) myocardial infarction; B20 Human immunodeficiency virus [HIV] disease; I50.43 Acute on chronic combined systolic (congestive) and diastolic (congestive) heart failure; N18.9 Chronic kidney disease, unspecified; J20.9 Acute bronchitis, unspecified; B19.20 Unspecified viral hepatitis C without hepatic coma; Z79.01 Long term (current) use of anticoagulants; D64.9 Anemia, unspecified; Z89.422 Acquired absence of other left toe(s); Z95.810 Presence of automatic (implantable) cardiac defibrillator; F17.200 Nicotine dependence, unspecified, uncomplicated; Z90.81 Acquired absence of spleen; N17.9 Acute kidney failure, unspecified; E87.6 Hypokalemia; I42.8 Other cardiomyopathies; I34.0 Nonrheumatic mitral (valve) insufficiency; I27.20 Pulmonary hypertension, unspecified; Z86.718 Personal history of other venous thrombosis and embolism
CPT/HCPCS: 36415; 71045; 76770; 80048; 80053; 80069; 80307; 81001; 82043; 82044; 82248; 82550; 82570; 83735; 83880; 84100; 84300; 84484; 85007; 85025; 85610; 87081; 89050; 93005; 93306; 93970; 94640; 94664; 94760; 97803; 99285; J7620; J8499

== ENCOUNTER 2017-07-27 08:12 | Inpatient (IN) | payer OTHER ==
[2017-07-27] VITALS (7 sets, daily range): BP systolic 92–123; BP diastolic 66–76
[~2017-07-27] VITALS: Ht 182.9 cm; Wt 101.6 kg
[~2017-07-27 08:12] MED LIST: ATORVASTATIN CA40 MG ORAL; BAYER CHEWABLE81 MG PO; BREO ELLIPTA 11 EACH IH; BUMETANIDE0.5 MG ORAL; CARVEDILOL3.125 MG ORAL; DULERA 100 MCG/13 GM INH; EMTRIVA200 MG ORAL; FUROSEMIDE20 M1 ORAL; GABAPENTIN300 MG ORAL; MIRTAZAPINE15 M1 ORAL; NAPROXEN500 M2 ORAL; TIVICAY50 MG ORAL; WARFARIN SODIUM3 MG ORAL; ZIDOVUDINE300 MG ORAL
[2017-07-27] MEDS ORDERED: Sodium Chloride 500ML 500 ML IV ONE (08:30)
--- NOTE | 2017-07-27 08:46 | Emergency Room Report ---
History of Present Illness General Chief Complaint: Dyspnea/Respdistress Source: Patient, Medical Record Present Illness HPI Patient presents with fatigue chest pain and dyspnea. The patient has severe dilated cardiomyopathy which is end-stage. Patient is on multiple medications including Coumadin. There's been blood clots in the legs. Both legs are swollen at this time. There is also suprapubic pain. The chest pain was exertional. The patient also gets extremely dyspneic with minimal exertion. There is no pain at this time. Her graft the patient denies any fevers, cough, phlegm, sore throat. There may be some dysuria. Is no hematuria. The patient is on Coumadin for blood clots in legs. Denies PE. The patient is quite depressed because of the lack of exertional capacity. The patient is HIV positive. In past ejection fraction has been 15%. Genetic male who identifies as female. Allergies: Coded Allergies: No Known Allergies (Unverified , 05/29/17) Patient History Past Medical History: see triage record Past Surgical History: pacemaker Social History: Reports: smoking, alcohol use Social History Narrative disabled Reviewed Nursing Documentation: PMH: Agreed; PSxH: Agreed Nursing Documentation-PMH Past Medical History: No History, Except For Hx Cardiac Problems: Yes - chf, DVT, hep c, hiv+, IVC filter Hx Pacemaker: Yes - AICD Hx COPD: Yes Hx Cancer: No Hx Neurological Problems: No Review of Systems All Other Systems: negative except mentioned in HPI Physical Exam Vital Signs Date Time Temp Pulse Resp B/P (MAP) Pulse Ox O2 Delivery O2 Flow Rate FiO2 07/27/17 08:16 98.1 122 18 92/70 98 Room Air 98.1 Sp02 EP Interpretation: reviewed, normal General Appearance: no apparent distress, Chronically Ill Head: normocephalic Eyes: bilateral eye PERRL, bilateral eye conjunctivae pale ENT: moist mucus membranes Neck: supple Respiratory: lungs clear, normal breath sounds, decreased breath sounds Cardiovascular #1: no JVD, tachycardia, edema - Bilateral pitting edema which is brawny 2+ Cardiovascular #2: 2+ radial (R) Gastrointestinal: normal inspection, normal bowel sounds, non tender, no mass, non-distended Musculoskeletal: back normal, normal range of motion Neurologic: alert, oriented x3, grossly normal Psychiatric: no suicidal/homicidal ideation, depressed affect Skin: warm/dry, pallor, other - Lesions anterior tibia with minimal blistering without serous drainage Medical Decision Making Diagnostic Impression: Primary Impression: Chest pain Qualified Codes: R07.9 - Chest pain, unspecified Additional Impressions: CHF exacerbation Qualified Codes: I50.43 - Acute on chronic combined systolic (congestive) and diastolic (congestive) heart failure EF 15% Major depression Qualified Codes: F33.2 - Major depressive disorder, recurrent severe without psychotic features ER Course The patient presents with chest pain and exertional dyspnea. Differential includes acute myocardial infarction, unstable angina, pulmonary embolus, exacerbation of congestive heart failure amongst others. The patient was evaluated with EKG, chest x-ray and labs. The patient is pale and type and Rh will be done. The patient is denying pain at this time. The patient needs to be admitted to the hospital for observation. EKG reveals atrial pacemaker with heart rate of 118 no acute changes. CXR with CHF. Labs with elevated BNP. Normal troponin. Some elevated LFT. Difficulty with establish IV. Pain improved with medication. Lasix given. Admit tele Dr. Blair. Laboratory Tests Test 07/27/17 08:20 07/27/17 08:56 07/27/17 09:43 07/27/17 12:50 Troponin I 0.048 ng/mL (0.000-0.056) White Blood Count 7.1 K/UL (4.8-10.8) Red Blood Count 3.28 M/UL (4.70-6.10) L Hemoglobin 10.4 G/DL (14.2-18.0) L Hematocrit 34.5 % (42.0-52.0) L Mean Corpuscular Volume 105 FL (80-99) H Mean Corpuscular Hemoglobin 31.7 PG (27.0-31.0) H Mean Corpuscular Hemoglobin Concent 30.2 G/DL (32.0-36.0) L Red Cell Distribution Width 21.3 % (11.6-14.8) H Platelet Count 231 K/UL (150-450) Mean Platelet Volume 6.6 FL (6.5-10.1) Neutrophils (%) (Auto) 36.4 % (45.0-75.0) L Lymphocytes (%) (Auto) 51.3 % (20.0-45.0) H Monocytes (%) (Auto) 10.7 % (1.0-10.0) H Eosinophils (%) (Auto) 0.1 % (0.0-3.0) Basophils (%) (Auto) 1.6 % (0.0-2.0) Prothrombin Time 16.8 SEC (9.30-11.50) H Prothrombin Time INR 1.7 (0.9-1.1) H PTT 28 SEC (23-33) Sodium Level 139 MMOL/L (136-145) Potassium Level 4.5 MMOL/L (3.5-5.1) Chloride Level 101 MMOL/L (98-107) Carbon Dioxide Level 23 MMOL/L (21-32) Anion Gap 15 mmol/L (5-15) Blood Urea Nitrogen 33 mg/dL (7-18) H Creatinine 2.5 MG/DL (0.55-1.30) H Estimate Glomerular Filtration Rate 32.1 mL/min (>60) Glucose Level 105 MG/DL (74-106) Lactic Acid Level 3.30 mmol/L (0.66-2.22) H 4.10 mmol/L (0.66-2.22) H Calcium Level 9.0 MG/DL (8.5-10.1) Total Bilirubin 3.4 MG/DL (0.2-1.0) H Direct Bilirubin 2.3 MG/DL (0.0-0.3) H Aspartate Amino Transferase (AST) 66 U/L (15-37) H Alanine Aminotransferase (ALT) 49 U/L (12-78) Alkaline Phosphatase 75 U/L (46-116) Total Creatine Kinase 68 U/L (26-308) Pro-B-Type Natriuretic Peptide 64892 pg/mL (0-125) H Total Protein 7.5 G/DL (6.4-8.2) Albumin 3.1 G/DL (3.4-5.0) L Globulin 4.4 g/dL Albumin/Globulin Ratio 0.7 (1.0-2.7) L Lipase 84 U/L (73-393) Test 07/27/17 17:17 Urine Color Brown Urine Appearance Clear Urine pH 5 (4.5-8.0) Urine Specific [place] 1.020 (1.005-1.035) Urine Protein 2+ (NEGATIVE) H Urine Glucose (UA) Negative (NEGATIVE) Urine Ketones 1+ (NEGATIVE) H Urine Occult Blood 1+ (NEGATIVE) H Urine Nitrite Negative (NEGATIVE) Urine Bilirubin 2+ (NEGATIVE) H Urine Ictotest Negative Urine Urobilinogen 8 MG/DL (0.0-1.0) H Urine Leukocyte Esterase 1+ (NEGATIVE) H Urine RBC 2-4 /HPF (0 - 0) H Urine WBC 0-2 /HPF (0 - 0) Urine Squamous Epithelial Cells None /LPF (NONE/OCC) Urine Amorphous Sediment Few /LPF (NONE) H Urine Bacteria Few /HPF (NONE) Urine Opiates Screen Negative (NEGATIVE) Urine Barbiturates Screen Negative (NEGATIVE) Phencyclidine (PCP) Screen Negative (NEGATIVE) Urine Amphetamines Screen Negative (NEGATIVE) Urine Benzodiazepines Screen Negative (NEGATIVE) Urine Cocaine Screen Negative (NEGATIVE) Urine Marijuana (THC) Screen Negative (NEGATIVE) EKG Diagnostic Results Rate: tachycardiac Rhythm: other - Based ST Segments: no acute changes Rhythm Strip Diag. Results EP Interpretation: yes Rhythm: no PVC's, no ectopy, other - Rate 118 Chest X-Ray Diagnostic Results Chest X-Ray Diagnostic Results : Chest X-Ray Ordered: Yes # of Views/Limited/Complete: 1 View Indication: Shortness of Breath Interpretation: no pneumothorax, other - small effusions and chf Impression: Other Electronically Signed by: Negro Nova MD Last Vital Signs Date Time Temp Pulse Resp B/P (MAP) Pulse Ox O2 Delivery O2 Flow Rate FiO2 07/27/17 16:00 97.2 87 18 105/76 92 Room Air 97.2 Status: improved Disposition: ADMITTED INPATIENT Condition: Serious Negro Nova M.D. July 27, 2017 08:46
[2017-07-27 09:12] LABS: BASOPHILS % (AUTO) 1.6 % (0.0-2.0); EOSINOPHILS % (AUTO) 0.1 % (0.0-3.0); HEMATOCRIT 34.5 % (42.0-52.0); HEMOGLOBIN 10.4 G/DL (14.2-18.0); LYMPHOCYTES % (AUTO) 51.3 % (20.0-45.0); MEAN CORPUSCULAR VOLUME 105 FL (80-99); MONOCYTES % (AUTO) 10.7 % (1.0-10.0); NEUTROPHILS % (AUTO) 36.4 % (45.0-75.0); PLATELET COUNT 231 K/UL (150-450); RED BLOOD COUNT 3.28 M/UL (4.70-6.10); RED CELL DISTRIBUTION WIDTH 21.3 % (11.6-14.8); WHITE BLOOD COUNT 7.1 K/UL (4.8-10.8)
--- NOTE | 2017-07-27 09:25 | Diagnostic Imaging Report ---
Indication: Chest pain Technique: One view of the chest Comparison: 06/06/2017 Findings: Suboptimal inspiration currently There is a left chest biventricular AICD again demonstrated. Interim development of infiltrate and possibly pleural fluid at the right lung base. There is also increased retrocardiac opacity and possible small left pleural effusion. There may be mild generalized interstitial edema. The heart is enlarged. Impression: Bilateral basilar infiltrates and likely bilateral pleural fluid Possible mild pulmonary interstitial congestion Cardiomegaly AICD
[2017-07-27 09:34] LABS: INR 1.7 (0.9-1.1)
[2017-07-27 10:34] LABS: ANION GAP 15 mmol/L (5-15); BLOOD UREA NITROGEN 33 mg/dL (7-18); CARBON DIOXIDE 23 MMOL/L (21-32); CHLORIDE 101 MMOL/L (98-107); CREATININE 2.5 MG/DL (0.55-1.30); POTASSIUM 4.5 MMOL/L (3.5-5.1); SODIUM 139 MMOL/L (136-145)
[2017-07-27 10:44] LABS: ALANINE AMINOTRANSFERASE 49 U/L (12-78); ALBUMIN 3.1 G/DL (3.4-5.0); ALBUMIN/GLOBULIN RATIO 0.7 (1.0-2.7); ALKALINE PHOSPHATASE 75 U/L (46-116); ASPARTATE AMINO TRANSFERASE 66 U/L (15-37); BILIRUBIN,TOTAL 3.4 MG/DL (0.2-1.0); CREATINE KINASE 68 U/L (26-308)
[2017-07-27 10:53] LABS: BILIRUBIN,DIRECT 2.3 MG/DL (0.0-0.3)
[2017-07-27] MEDS ORDERED: Lidocaine 1% Plain 30 ml INJ STA (10:54)
[2017-07-27] MEDS ORDERED: Heparin 2000 units/Ns 1000ml INJ STA (10:54)
[2017-07-27] MEDS ORDERED: Furosemide 80mg tab ORAL STA (10:56)
[2017-07-27] MEDS ORDERED: oxyCODONE HCL/Acetaminophen 5/325mg ORAL STA (10:56)
[2017-07-27] MEDS ORDERED: Furosemide 40mg tab ONE (11:30)
--- NOTE | 2017-07-27 12:14 | Consultation ---
History of Present Illness General Date patient seen: July 27, 2017 Chief Complaint: Dyspnea/Respdistress Present Illness HPI 62 year old male with hx of HIV, Hep C, End stage dilative Heart disease with ICD, presented to ER with fatigue, chest pain and dyspnea. Both legs are swollen at this time. There is also suprapubic pain. The chest pain was exertional. The patient also gets extremely dyspneic with minimal exertion. The patient is on Coumadin for blood clots. He is admitted to telemetry for further management. Allergies: Coded Allergies: No Known Allergies (Unverified , 05/29/17) Medication History Scheduled Aspirin (Reymundo Chewable), 81 MG PO DAILY, (Reported) Atorvastatin Calcium* (Atorvastatin Calcium*), 40 MG ORAL BEDTIME, (Reported) Bumetanide* (Bumetanide*), 0.5 MG ORAL BID, (Reported) Carvedilol* (Carvedilol*), 3.125 MG ORAL BID, (Reported) Dolutegravir Sodium (Tivicay), 50 MG ORAL DAILY, (Reported) Emtricitabine* (Emtriva*), 200 MG ORAL EVERY OTHER DAY, (Reported) Furosemide* (Lasix*), 20 MG ORAL DAILY, (Reported) Gabapentin* (Gabapentin*), 300 MG ORAL EVERY 6 HOURS, (Reported) Mirtazapine (Mirtazapine), 15 MG ORAL BEDTIME, (Reported) Mometasone/Formoterol (Dulera 100 Mcg/5 Mcg Inhaler), 2 PUFFS INH EVERY 12 HOURS , (Reported) Naproxen* (Naproxen*), 500 MG ORAL TWICE A DAY, (Reported) Warfarin Sod* (Warfarin Sod*), 3 MG ORAL HS, (Reported) Zidovudine (Zidovudine), 300 MG ORAL BID, (Reported) Miscellaneous Medications Fluticasone/Vilanterol (Breo Ellipta 100-25 Mcg INH), 1 EACH IH, (Reported) Patient History Healthcare decision maker Resuscitation status Advanced Directive on File Past Medical/Surgical History Past Medical/Surgical History: (1) DVT (deep venous thrombosis) (2) EF 15% (3) Anasarca (4) HTN (hypertension) Review of Systems All Other Systems: negative except mentioned in HPI Physical Exam General Appearance: no apparent distress Lines, tubes and drains: peripheral HEENT: normocephalic, atraumatic Neck: non-tender, normal alignment Respiratory/Chest: rhonchi - left Cardiovascular/Chest: normal peripheral pulses, normal rate Extremities: severe edema Neurologic: manager leasing II-XII grossly normal Last 24 Hour Vital Signs Date Time Temp Pulse Resp B/P (MAP) Pulse Ox O2 Delivery O2 Flow Rate FiO2 07/27/17 11:54 98.1 119 21 102/74 97 Room Air 98.1 07/27/17 10:11 98.2 121 24 101/68 97 Room Air 98.2 07/27/17 08:28 98.1 112 18 92/70 98 Room Air 98.1 07/27/17 08:23 119 20 Room Air 07/27/17 08:16 98.1 122 18 92/70 98 Room Air 98.1 Laboratory Tests Test 07/27/17 08:20 07/27/17 08:56 07/27/17 09:43 Troponin I 0.048 ng/mL (0.000-0.056) White Blood Count 7.1 K/UL (4.8-10.8) Red Blood Count 3.28 M/UL (4.70-6.10) L Hemoglobin 10.4 G/DL (14.2-18.0) L Hematocrit 34.5 % (42.0-52.0) L Mean Corpuscular Volume 105 FL (80-99) H Mean Corpuscular Hemoglobin 31.7 PG (27.0-31.0) H Mean Corpuscular Hemoglobin Concent 30.2 G/DL (32.0-36.0) L Red Cell Distribution Width 21.3 % (11.6-14.8) H Platelet Count 231 K/UL (150-450) Mean Platelet Volume 6.6 FL (6.5-10.1) Neutrophils (%) (Auto) 36.4 % (45.0-75.0) L Lymphocytes (%) (Auto) 51.3 % (20.0-45.0) H Monocytes (%) (Auto) 10.7 % (1.0-10.0) H Eosinophils (%) (Auto) 0.1 % (0.0-3.0) Basophils (%) (Auto) 1.6 % (0.0-2.0) Prothrombin Time 16.8 SEC (9.30-11.50) H Prothromb Time International Ratio 1.7 (0.9-1.1) H Activated Partial Thromboplast Time 28 SEC (23-33) Sodium Level 139 MMOL/L (136-145) Potassium Level 4.5 MMOL/L (3.5-5.1) Chloride Level 101 MMOL/L (98-107) Carbon Dioxide Level 23 MMOL/L (21-32) Anion Gap 15 mmol/L (5-15) Blood Urea Nitrogen 33 mg/dL (7-18) H Creatinine 2.5 MG/DL (0.55-1.30) H Estimat Glomerular Filtration Rate 32.1 mL/min (>60) Glucose Level 105 MG/DL (74-106) Lactic Acid Level 3.30 mmol/L (0.66-2.22) H Calcium Level 9.0 MG/DL (8.5-10.1) Total Bilirubin 3.4 MG/DL (0.2-1.0) H Direct Bilirubin 2.3 MG/DL (0.0-0.3) H Aspartate Amino Transf (AST/SGOT) 66 U/L (15-37) H Alanine Aminotransferase (ALT/SGPT) 49 U/L (12-78) Alkaline Phosphatase 75 U/L (46-116) Total Creatine Kinase 68 U/L (26-308) Pro-B-Type Natriuretic Peptide 04363 pg/mL (0-125) H Total Protein 7.5 G/DL (6.4-8.2) Albumin 3.1 G/DL (3.4-5.0) L Globulin 4.4 g/dL Albumin/Globulin Ratio 0.7 (1.0-2.7) L Lipase 84 U/L (73-393) Height (Feet): 6 Weight (Pounds): 200 Medications Current Medications Medications (Trade) Dose Ordered Sig/Kane Route PRN Reason Start Time Stop Time Status Last Admin Dose Admin Acetaminophen (Tylenol) 650 mg Q4H PRN ORAL Fever 07/27/17 11:00 08/26/17 10:59 UNV Albuterol/ Ipratropium (Albuterol/ Ipratropium) 3 ml EVERY 4 HOURS PRN HHN Shortness of Breath 07/27/17 11:00 08/01/17 10:59 UNV Chlorhexidine Gluconate (Michelle-Hex 2%) 1 applic DAILY@2000 TOPIC 07/27/17 20:00 08/26/17 19:59 Dextrose (Dextrose 50%) STAT PRN IV Hypoglycemia 07/27/17 11:00 08/26/17 10:59 UNV Dolutegravir Sodium (Tivicay) 50 mg DAILY ORAL 07/28/17 09:00 08/27/17 08:59 UNV Emtricitabine (Emtriva) 200 mg EVERY OTHER DAY ORAL 07/29/17 09:00 08/28/17 08:59 UNV Furosemide (Lasix) 40 mg EVERY 8 HOURS IV 07/27/17 14:00 08/26/17 13:59 UNV Gabapentin (Neurontin) 300 mg EVERY 6 HOURS ORAL 07/27/17 12:00 08/26/17 11:59 UNV Heparin Sodium (Porcine) (Heparin 5000 units/ml) 5,000 units EVERY 12 HOURS SUBQ 07/27/17 21:00 08/26/17 20:59 UNV Ondansetron HCl (Zofran) 4 mg Q6H PRN IVP Nausea & Vomiting 07/27/17 11:00 08/26/17 10:59 UNV Ondansetron HCl (Zofran) 4 mg Q6H PRN IVP Nausea & Vomiting 07/27/17 11:00 08/26/17 10:59 UNV Polyethylene Glycol (Miralax) 17 gm DAILYPRN PRN ORAL Constipation 07/27/17 11:00 08/26/17 10:59 UNV Temazepam (Restoril) 15 mg HSPRN PRN ORAL Insomnia 07/27/17 11:00 08/03/17 10:59 UNV Assessment/Plan Problem List: (1) CHF exacerbation ICD Codes: I50.9 - Heart failure, unspecified SNOMED: 77026994 (2) Anasarca ICD Codes: R60.1 - Generalized edema SNOMED: 270494894, 760994678 (3) Edema ICD Codes: R60.9 - Edema, unspecified SNOMED: 988961119, 957988805 (4) SOB (shortness of breath) ICD Codes: R06.02 - Shortness of breath SNOMED: 811993921 (5) HTN (hypertension) ICD Codes: I10 - Essential (primary) hypertension SNOMED: 77178376 Assessment/Plan iv diuretics optimize cardiac meds Cardio to see check intake and output Alise Hodge MD July 27, 2017 12:14
[2017-07-27] MEDS ORDERED: Albuterol/Ipratropium 3ml neb HHN PRN (13:00)
[2017-07-27] MEDS ORDERED: Miralax 17gm pkt ORAL PRN (13:00)
[2017-07-27] MEDS ORDERED: Heparin 2000 units/Ns 1000ml INJ PRN (14:45)
[2017-07-27] MEDS ORDERED: Lidocaine 1% Plain 30 ml INJ PRN (14:45)
--- NOTE | 2017-07-27 15:58 | Cardiology Report ---
APPROVED REPORT EXAM: Two-dimensional and M-mode echocardiogram with Doppler and color Doppler. INDICATION LV function M-Mode DIMENSIONS IVSd1.3 (0.7-1.1cm)Left Atrium (MM)5.7 (1.6-4.0cm) LVDd8.4 (3.5-5.6cm)Aortic Root3.6 (2.0-3.7cm) PWd1.1 (0.7-1.1cm)Aortic Cusp Exc.1.7 (1.5-2.0cm) LVDs7.6 (2.5-4.0cm) PWs1.2 cm Severe left ventricular enlagement. Severe global left ventricular hypokinesis. Septal and apical dyskinesis. Left ventricular ejection fraction estimated to be 10-15 %. Increased E point-interventricular septal separation c/w left ventricular dysfunction. No evidence of left ventricular hypertrophy. Septal thinning noted. Small posterior pericardial effusion. Moderate bi-atrial enlargement. Severe right ventricular enlagement. Focal aortic valve sclerosis with adequate cusp excursion. Thickened mitral valve leaflets with normal excursion. Mitral annulus and aortic root calcification. Normal pulmonic valve structure. Normal tricuspid valve structure. IVC dilated at 2.4 cm without physiologic collapse suggestive of increased RA pressure. Pacemaker wire present in the right side chambers. A color flow and spectral Doppler study was performed and revealed: Trace aortic regurgitation. Moderate mitral regurgitation. Mitral inflow velocities indicates possible pseudo normalization pattern implying moderately elevated left atrial pressure (Grade II ). Moderate tricuspid regurgitation. Tricuspid systolic velocities suggests peak right ventricular systolic pressure of 62 mmHg, consistent with severe pulmonary hypertension. Pulmonic regurgitation present.
--- NOTE | 2017-07-27 16:29 | Cardiology Report ---
APPROVED REPORT EKG Measurement Heart [id number] Abnormal ECG Dual-Chamber Pacemaker
--- NOTE | 2017-07-27 16:31 | Diagnostic Imaging Report ---
Indications: Needs long-term IV access Technique: Ultrasound confirms patent compressible left basilic vein. Total sterile technique, including sterile probe cover and sterile gel, hat, mask,, sterile gown, large sterile drape, and preparation with 2% chlorhexidine utilized. Local anesthesia with 1% lidocaine. Under real-time ultrasound guidance, puncture basilic vein using 21-gauge needle, documented and archived, passage 0.018 guidewire under direct fluoroscopy, which was used to determine appropriate catheter length, exchange for 5 Thai peel-away sheath. 5 Thai Bard dual-lumen power PICC cut to 39 cm. It was inserted through the peel-away sheath. Peel-away sheath and guidewire removed. Catheter fixed to the skin. Both catheter ports aspirated and flushed. Patient tolerated procedure well, without immediate complication. Digital radiograph documents satisfactory catheter tip position, at the cavoatrial junction. Total fluoroscopy time 0.2 minutes. Total dose area product 13 dGycm2 Impression: Successful placement of right arm PICC under sonographic and fluoroscopic guidance, as described above.
[2017-07-27 17:39] LABS: APPEARANCE,URINE CLEAR; BILIRUBIN, URINE 2+ (NEGATIVE); COLOR,URINE BROWN; GLUCOSE, URINE (UA) NEGATIVE (NEGATIVE); KETONES,URINE 1+ (NEGATIVE); LEUKOCYTE ESTERASE ,URINE 1+ (NEGATIVE); NITRITE,URINE NEGATIVE (NEGATIVE); PH,URINE 5 (4.5-8.0); PROTEIN,URINE 2+ (NEGATIVE); UROBILINOGEN,URINE 8 MG/DL (0.0-1.0)
[2017-07-27] MEDS: Heparin 5000 units/ml inj SUBQ SCH (21:26)
[2017-07-27] MEDS: Dyna-Hex 2% Top Sol 2oz TOPIC SCH (23:19)
[2017-07-28 04:00] VITALS: BP 95/64
[2017-07-28 07:21] LABS: HEMATOCRIT 30.5 % (42.0-52.0); HEMOGLOBIN 9.6 G/DL (14.2-18.0); MEAN CORPUSCULAR VOLUME 104 FL (80-99); PLATELET COUNT 213 K/UL (150-450); RED BLOOD COUNT 2.95 M/UL (4.70-6.10); RED CELL DISTRIBUTION WIDTH 21.2 % (11.6-14.8)
[2017-07-28 07:33] LABS: ALBUMIN 2.9 G/DL (3.4-5.0); ANION GAP 9 mmol/L (5-15); BLOOD UREA NITROGEN 41 mg/dL (7-18); CALCIUM 8.8 MG/DL (8.5-10.1); CARBON DIOXIDE 27 MMOL/L (21-32); CHLORIDE 102 MMOL/L (98-107); CREATININE 2.8 MG/DL (0.55-1.30); PHOSPHORUS 4.8 MG/DL (2.5-4.9); POTASSIUM 4.8 MMOL/L (3.5-5.1); SODIUM 138 MMOL/L (136-145)
[2017-07-28 08:00] VITALS: BP 106/68
[2017-07-28] MEDS: Heparin 5000 units/ml inj SUBQ SCH ×2 (08:33→20:23)
--- NOTE | 2017-07-28 08:43 | General Progress Note ---
Progress Note Progress Note [id number] full consult dictated Nida Thomas MD July 28, 2017 08:43
[2017-07-28] MEDS ORDERED: ISOSORBIDE DINIT5 MG ORAL (09:36)
[2017-07-28] MEDS ORDERED: APRESOLINE10 MG ORAL (09:36)
[2017-07-28] MEDS ORDERED: AMIODARONE HCL100 MG ORAL (09:49)
--- NOTE | 2017-07-28 10:30 | History and Physical Report ---
DATE OF ADMISSION: 07/27/2017 TIME: At 2 p.m. CONSULTANTS: 1. Salvador Saavedra M.D. 2. Alise Hodge M.D. 3. Nida Thomas M.D. CHIEF COMPLAINT: Chest pain, shortness of breath, edema, and CHF. BRIEF HISTORY: This is a 62-year-old who presented to [facility] last night with history of chest pain, substernal, no radiation, and slight shortness of breath, diagnosed with congestive heart failure. The patient was admitted into [facility]. Currently calm in bed, slightly short of breath, lethargic, no complaint. PAST MEDICAL HISTORY: Includes CHF, hypertension, DVT, and edema. PAST SURGICAL HISTORY: Webbed toes. MEDICATIONS: Emtriva, Lasix, Restoril, heparin, lidocaine, Neurontin, MiraLAX, and Zofran. ALLERGIES: Denies. SOCIAL HISTORY: Positive smoking. No alcohol. No intravenous drug abuse. FAMILY HISTORY: Noncontributory. REVIEW OF SYSTEMS: Slight chest pain. Slight shortness of breath. No nausea, vomiting, or diarrhea. PHYSICAL EXAMINATION: GENERAL: Calm in bed, oriented x3, and in no acute distress. VITAL SIGNS: Temperature is 98, pulse 118, respirations 21, and blood pressure 102/73. CARDIOVASCULAR: No murmur. LUNGS: Poor air exchange. ABDOMEN: Bowel sounds distant. EXTREMITIES: No cyanosis or clubbing. A 1+ edema bilaterally. NEUROLOGIC: The patient moves all extremities, slightly weak. LABORATORY DATA: Labs at this time show hemoglobin and hematocrit are 10 and 34, otherwise CBC is normal. BMP shows BUN and creatinine are 32 and 2.5. Lactic acid 3.3. Otherwise, normal. INR is 1.7. ASSESSMENT: 1. Shortness of breath. 2. Chest pain. 3. Congestive heart failure. 4. Hepatitis C. 5. Hypertension. 6. Deep venous thrombosis. 7. Edema. 8. Anemia. 9. Renal insufficiency. PLAN: 1. Continue premedications. 2. O2 and pulmonary treatment. 3. Blood pressure control. 4. Pain control. 5. Dietary followup. 6. OT, PT, and dietary evaluation. 7. CBC and BMP in the morning. 8. Dr. Saavedra, Dr. Thomas, and Dr. Hodge to consult. Ludin Blair D.O. DR: YOSVANY JOB#: [id number] CC:
--- NOTE | 2017-07-28 11:26 | Pulmonology Progress Note ---
Assessment/Plan Problems: (1) CHF exacerbation (2) Anasarca (3) Edema (4) SOB (shortness of breath) (5) EF 15% Assessment/Plan doing better respiratory treatment diuretics optimize cardiac meds Subjective ROS Limited/Unobtainable: No Constitutional: Reports: no symptoms HEENT: Repors: no symptoms Respiratory: Reports: no symptoms Allergies: Coded Allergies: No Known Allergies (Unverified , 05/29/17) Objective Last 24 Hour Vital Signs Date Time Temp Pulse Resp B/P (MAP) Pulse Ox O2 Delivery O2 Flow Rate FiO2 07/28/17 08:00 98.0 54 21 106/68 92 Room Air 98.0 07/28/17 04:00 97.5 87 20 95/64 92 Room Air 97.5 07/28/17 04:00 81 07/28/17 00:00 80 07/27/17 20:26 88 18 Room Air 07/27/17 20:00 97.0 76 22 123/66 93 Room Air 97.0 07/27/17 20:00 80 07/27/17 16:00 97.2 87 18 105/76 92 Room Air 97.2 07/27/17 16:00 87 07/27/17 13:30 97.1 121 19 101/71 95 Room Air 97.1 07/27/17 13:00 98.2 118 21 102/73 95 Room Air 98.2 07/27/17 12:30 98.2 118 21 102/73 95 Room Air 98.2 07/27/17 11:54 98.1 119 21 102/74 97 Room Air 98.1 Intake and Output 07/27/17 07/28/17 19:00 07:00 Intake Total 540 ml Balance 540 ml Intake Oral 540 ml # Voids 1 General Appearance: WD/WN HEENT: normocephalic, atraumatic Respiratory/Chest: chest wall non-tender, lungs clear Cardiovascular: normal peripheral pulses, normal rate Abdomen: normal bowel sounds, soft, non tender Genitourinary: normal external genitalia Extremities: no clubbing Skin: no ulcers Neurologic/Psychiatric: no motor/sensory deficits Laboratory Tests 07/27/17 12:50: Lactic Acid Level 4.10H 07/27/17 17:17: Urine Color Brown, Urine Appearance Clear, Urine pH 5, Urine Specific [place] 1.020, Urine Protein 2+H, Urine Glucose (UA) Negative, Urine Ketones 1+H, Urine Occult Blood 1+H, Urine Nitrite Negative, Urine Bilirubin 2+H, Urine Ictotest Negative, Urine Urobilinogen 8H, Urine Leukocyte Esterase 1+H, Urine RBC 2-4H, Urine WBC 0-2, Urine Squamous Epithelial Cells None, Urine Amorphous Sediment FewH, Urine Bacteria Few, Urine Opiates Screen Negative, Urine Barbiturates Screen Negative, Phencyclidine (PCP) Screen Negative, Urine Amphetamines Screen Negative, Urine Benzodiazepines Screen Negative, Urine Cocaine Screen Negative, Urine Marijuana (THC) Screen Negative 07/28/17 06:00: White Blood Count 8.0, Red Blood Count 2.95L, Hemoglobin 9.6L, Hematocrit 30.5L , Mean Corpuscular Volume 104H, Mean Corpuscular Hemoglobin 32.7H, Mean Corpuscular Hemoglobin Concent 31.6L, Red Cell Distribution Width 21.2H, Platelet Count 213, Mean Platelet Volume 8.6, Neutrophils (%) (Auto) , Lymphocytes (%) (Auto) , Monocytes (%) (Auto) , Eosinophils (%) (Auto) , Basophils (%) (Auto) , Differential Total Cells Counted 100, Neutrophils % ( Manual) 34L, Lymphocytes % (Manual) 59H, Monocytes % (Manual) 7, Eosinophils % ( Manual) 0, Basophils % (Manual) 0, Band Neutrophils 0, Platelet Estimate Adequate, Platelet Morphology Normal, Hypochromasia 2+, Macrocytosis 1+, Sodium Level 138, Potassium Level 4.8, Chloride Level 102, Carbon Dioxide Level 27, Anion Gap 9, Blood Urea Nitrogen 41H, Creatinine 2.8H, Estimat Glomerular Filtration Rate 28.1, Glucose Level 91, Calcium Level 8.8, Phosphorus Level 4.8 , Troponin I 0.064H, Albumin 2.9L Current Medications Medications (Trade) Dose Ordered Sig/Kane Route PRN Reason Start Time Stop Time Status Last Admin Dose Admin Acetaminophen (Tylenol) 650 mg Q4H PRN ORAL Mild Pain/Temp > 100.5 07/28/17 07:54 08/27/17 07:53 07/28/17 08:03 Albuterol/ Ipratropium (Albuterol/ Ipratropium) 3 ml Q4H PRN HHN Shortness of Breath 07/27/17 13:00 08/01/17 12:59 Chlorhexidine Gluconate (Michelle-Hex 2%) 1 applic DAILY@2000 TOPIC 07/27/17 20:00 08/26/17 19:59 07/27/17 23:19 Dextrose (Dextrose 50%) 25 ml PRN IV Hypoglycemia 07/27/17 12:45 08/26/17 12:44 Dextrose (Dextrose 50%) 50 ml PRN IV hypoglycemia 07/27/17 12:45 08/26/17 12:44 Dolutegravir Sodium (Tivicay) 50 mg DAILY ORAL 07/28/17 09:00 08/27/17 08:59 UNV Emtricitabine (Emtriva) 200 mg 3XW ORAL 07/28/17 21:00 08/27/17 20:59 UNV Furosemide (Lasix) 40 mg EVERY 8 HOURS IV 07/27/17 22:00 08/26/17 21:59 07/28/17 05:47 Gabapentin (Neurontin) 300 mg EVERY 6 HOURS ORAL 07/27/17 13:30 08/26/17 13:29 07/28/17 05:47 Heparin Sodium (Porcine) (Heparin 5000 units/ml) 5,000 units EVERY 12 HOURS SUBQ 07/27/17 21:00 08/26/17 20:59 07/28/17 08:33 Ondansetron HCl (Zofran) 4 mg Q6H PRN IVP Nausea & Vomiting 07/27/17 13:00 08/26/17 12:59 Polyethylene Glycol (Miralax) 17 gm DAILYPRN PRN ORAL Constipation 07/27/17 13:00 08/26/17 12:59 Temazepam (Restoril) 15 mg HSPRN PRN ORAL Insomnia 07/27/17 21:00 08/03/17 20:59 Zidovudine (Retrovir) 200 mg BID ORAL 07/28/17 18:00 08/27/17 17:59 Alise Flowers MD July 28, 2017 11:26
[2017-07-28 12:00] VITALS: BP 118/64
--- NOTE | 2017-07-28 15:30 | Consultation ---
DATE OF CONSULTATION: 07/28/2017 NEPHROLOGY CONSULTATION CONSULTING PHYSICIAN: Nida Thomas M.D. REFERRING PHYSICIAN: Ludin Blair D.O. REASON FOR CONSULTATION: Acute on chronic renal failure. HISTORY OF PRESENT ILLNESS: The patient is a 62-year-old male with past medical history significant for chronic kidney disease, baseline creatinine is unknown and he was told that his kidneys are malfunctioning, history of HIV, hepatitis C, history of congestive heart failure, status post AICD placement. He presented to emergency room at [facility] complaining of intermittent chest pain, dyspnea on exertion, and lower extremity edema. The patient described his chest pain as a pressure like, radiates into left, was associated with some shortness of breath and denies any palpitation. The patient consequently was given Lasix and admitted in the hospital, found to have a creatinine of 2.8, I was called for management of renal disease and electrolyte imbalance. PAST MEDICAL HISTORY: 1. History of hypertension. 2. History of HIV. 3. History of hepatitis C. 4. History of chronic kidney disease, baseline creatinine is unknown. 5. History of CHF, status post AICD placement. MEDICATIONS: Home medications are includin. Aspirin 81 mg p.o. daily. 2. Atorvastatin 40 mg daily. 3. 0.5 mg p.o. daily. 4. Carvedilol 3.125 mg daily. 5. Tivicay 50 mg p.o. daily. 6. Emtriva 200 mg daily. 7. Lasix 20 mg daily. 8. Gabapentin 300 mg p.o. daily. 9. Mirtazapine 15 mg p.o. daily. 10. p.r.n. 11. Naproxen 500 mg p.o. b.i.d. 12. Warfarin 3 mg daily. 13. Zidovudine 300 mg p.o. daily. FAMILY HISTORY: Noncontributory. REVIEW OF SYSTEMS: GENERAL: He complained of generalized weakness. Denies any fever, chills, or night sweats. HEAD AND NECK: Denies any dysphagia, odynophagia, blurry vision, headache, or neck stiffness. PULMONARY: Complained of shortness of breath. No cough. No sputum. CARDIOVASCULAR: Complained of chest pain as mentioned in HPI. Complained of orthopnea, PND, and leg swelling. GASTROINTESTINAL: Denies any nausea, vomiting, diarrhea, hematemesis, or hematochezia. GENITOURINARY: Denies any dysuria, frequency, or hematuria. MUSCULOSKELETAL: He complained of generalized weakness. Denies any localized weakness or numbness. PHYSICAL EXAMINATION: VITAL SIGNS: The patient has temperature of 98, blood pressure 123/66, pulse rate of 80, and respiratory rate of 18. HEAD AND NECK: No JVP. No LAD. No thyromegaly. Extraocular movement intact. Pupils are reactive to light and accommodation. LUNGS: Decreased breathing sounds of both sides. CARDIAC: Regular rate and rhythm. S1 and S2. No murmur. No rub. ABDOMEN: Soft, nontender, and nondistended. EXTREMITIES: A 3+ edema. No clubbing. No cyanosis. NEUROLOGIC: Cranial nerves II through XII within normal limits. Upper and lower extremities are grossly intact. LABORATORY AND DIAGNOSTIC DATA: Lab value, the patient has sodium of 138, potassium of 4.8, chloride 102, bicarb 27, BUN of 41, creatinine of 2.8, lactic acid of 4.1, and calcium of 8.8. Total bilirubin of 3.4, direct bilirubin of 2.4. AST of 49, ALT of 75, and alkaline phosphatase of 68. Troponin is mildly elevated. BNP of 12,977. Total protein of 7.5. Albumin of 3.1. UA reveals specific gravity of 1.020, pH of 5, ketones 1+, blood 1+, urobilinogen 8, leukocyte esterase 1+, rbc 2 to 4, wbc 0 to 2. CBC revealed wbc count of 8, hemoglobin of 9.6, hematocrit of 30, platelet count of 104. The patient had an echocardiogram, which revealed ejection fraction of 15%. He had a chest x-ray, which revealed bilateral basilar infiltrate, likely bilateral pleural effusion, possible pulmonary interstitial congestion. ASSESSMENT: 1. Acute renal failure, the etiology of acute renal failure is including ATN due to unstable hemodynamics versus cardiorenal syndrome. 2. CHF exacerbation and fluid overload. 3. Chronic kidney disease. 4. Hypertension. 5. Mild elevation of troponin. PLAN: Plan for the patient to obtain UA. Check the random urine protein creatinine ratio to calculate the proteinuria. Check the urine sodium and creatinine to calculate fractional excretion of sodium. Check the microalbumin level and scan the bladder. Continue with diuretics on a daily basis. Ultrasound of the kidney to evaluate the kidney size. Discontinue naproxen. Avoid any NSAID. Daily weight. Check the I's and O's. At the end, I would like to thank, Dr. Blair, for allowing me to participate in the care of this patient. Nida Thomas M.D. DR: NOMAN JOB#: [id number] CC:
--- NOTE | 2017-07-28 15:44 | General Progress Note ---
Assessment/Plan Problem List: (1) Renal insufficiency ICD Codes: N28.9 - Disorder of kidney and ureter, unspecified SNOMED: 132995899, 687714558 (2) HTN (hypertension) ICD Codes: I10 - Essential (primary) hypertension SNOMED: 80759706 (3) DVT (deep venous thrombosis) ICD Codes: I82.409 - Acute embolism and thrombosis of unspecified deep veins of unspecified lower extremity SNOMED: 638236718 (4) SOB (shortness of breath) ICD Codes: R06.02 - Shortness of breath SNOMED: 748362332 (5) Edema ICD Codes: R60.9 - Edema, unspecified SNOMED: 005414247, 411220493 (6) CHF exacerbation ICD Codes: I50.9 - Heart failure, unspecified SNOMED: 97227707 Qualifiers: Qualified Codes: I50.43 - Acute on chronic combined systolic (congestive) and diastolic (congestive) heart failure Status: unchanged Assessment/Plan ot pt diet o2 pulm tx abx cbc bmp am Subjective Constitutional: Reports: weakness Respiratory: Reports: shortness of breath Allergies: Coded Allergies: No Known Allergies (Unverified , 05/29/17) All Systems: reviewed and negative except above Subjective sitting calm Objective Last 24 Hour Vital Signs Date Time Temp Pulse Resp B/P (MAP) Pulse Ox O2 Delivery O2 Flow Rate FiO2 07/28/17 12:00 97.4 75 20 118/64 92 Room Air 97.4 07/28/17 08:00 98.0 54 21 106/68 92 Room Air 98.0 07/28/17 08:00 79 07/28/17 04:00 97.5 87 20 95/64 92 Room Air 97.5 07/28/17 04:00 81 07/28/17 00:00 80 07/27/17 20:26 88 18 Room Air 07/27/17 20:00 97.0 76 22 123/66 93 Room Air 97.0 07/27/17 20:00 80 07/27/17 16:00 97.2 87 18 105/76 92 Room Air 97.2 07/27/17 16:00 87 Intake and Output 07/27/17 07/28/17 19:00 07:00 Intake Total 540 ml Balance 540 ml Intake Oral 540 ml # Voids 1 Laboratory Tests 07/27/17 17:17: Urine Color Brown, Urine Appearance Clear, Urine pH 5, Urine Specific [place] 1.020, Urine Protein 2+H, Urine Glucose (UA) Negative, Urine Ketones 1+H, Urine Occult Blood 1+H, Urine Nitrite Negative, Urine Bilirubin 2+H, Urine Ictotest Negative, Urine Urobilinogen 8H, Urine Leukocyte Esterase 1+H, Urine RBC 2-4H, Urine WBC 0-2, Urine Squamous Epithelial Cells None, Urine Amorphous Sediment FewH, Urine Bacteria Few, Urine Opiates Screen Negative, Urine Barbiturates Screen Negative, Phencyclidine (PCP) Screen Negative, Urine Amphetamines Screen Negative, Urine Benzodiazepines Screen Negative, Urine Cocaine Screen Negative, Urine Marijuana (THC) Screen Negative 07/28/17 06:00: White Blood Count 8.0, Red Blood Count 2.95L, Hemoglobin 9.6L, Hematocrit 30.5L , Mean Corpuscular Volume 104H, Mean Corpuscular Hemoglobin 32.7H, Mean Corpuscular Hemoglobin Concent 31.6L, Red Cell Distribution Width 21.2H, Platelet Count 213, Mean Platelet Volume 8.6, Neutrophils (%) (Auto) , Lymphocytes (%) (Auto) , Monocytes (%) (Auto) , Eosinophils (%) (Auto) , Basophils (%) (Auto) , Differential Total Cells Counted 100, Neutrophils % ( Manual) 34L, Lymphocytes % (Manual) 59H, Monocytes % (Manual) 7, Eosinophils % ( Manual) 0, Basophils % (Manual) 0, Band Neutrophils 0, Platelet Estimate Adequate, Platelet Morphology Normal, Hypochromasia 2+, Macrocytosis 1+, Sodium Level 138, Potassium Level 4.8, Chloride Level 102, Carbon Dioxide Level 27, Anion Gap 9, Blood Urea Nitrogen 41H, Creatinine 2.8H, Estimat Glomerular Filtration Rate 28.1, Glucose Level 91, Calcium Level 8.8, Phosphorus Level 4.8 , Troponin I 0.064H, Albumin 2.9L 07/28/17 14:09: Urine Eosinophils None seen, Urine Random Creatinine [Pending], Urine Random Microalbumin [Pending], Urine Random Total Protein 21H, Urine Random Sodium < 10L, Urine Creatinine 107.3, Urine Microalbumin/Creatinine Ratio [Pending] Height (Feet): 6 Height (Inches): 0.00 Weight (Pounds): 200 General Appearance: lethargic EENT: normal ENT inspection Neck: normal alignment Cardiovascular: normal peripheral pulses, normal rate, regular rhythm Respiratory/Chest: chest wall non-tender, decreased breath sounds Abdomen: normal bowel sounds, non tender, soft Extremities: normal inspection Edema: 1+ Arm (L), 1+ Arm (R), 1+ Leg (L), 1+ Leg (R), 1+ Pedal (L), 1+ Pedal ( R), 1+ Generalized Edema: trace edema Neurologic: responsive, motor weakness Skin: normal pigmentation, warm/dry Ludin Blair DO July 28, 2017 15:44
[2017-07-28 16:00] VITALS: BP 107/60
[2017-07-28] MEDS ORDERED: dilTIAZem HCl 25mg/5ml Inj IVP PRN (16:45)
--- NOTE | 2017-07-28 18:59 | Cardiology Progress Note ---
Assessment/Plan Assessment/Plan The patient is seen and examined, full consult note will be dictated shortly. Objective Last 24 Hour Vital Signs Date Time Temp Pulse Resp B/P (MAP) Pulse Ox O2 Delivery O2 Flow Rate FiO2 07/28/17 18:24 125 107/60 07/28/17 16:00 97.5 121 21 107/60 94 Room Air 97.5 07/28/17 16:00 121 07/28/17 12:00 97.4 75 20 118/64 92 Room Air 97.4 07/28/17 12:00 75 07/28/17 08:00 98.0 54 21 106/68 92 Room Air 98.0 07/28/17 08:00 79 07/28/17 04:00 97.5 87 20 95/64 92 Room Air 97.5 07/28/17 04:00 81 07/28/17 00:00 80 07/27/17 20:26 88 18 Room Air 07/27/17 20:00 97.0 76 22 123/66 93 Room Air 97.0 07/27/17 20:00 80 Intake and Output 07/27/17 07/28/17 19:00 07:00 Intake Total 540 ml Balance 540 ml Intake Oral 540 ml # Voids 1 Laboratory Tests Test 07/28/17 06:00 07/28/17 14:09 White Blood Count 8.0 K/UL (4.8-10.8) Red Blood Count 2.95 M/UL (4.70-6.10) L Hemoglobin 9.6 G/DL (14.2-18.0) L Hematocrit 30.5 % (42.0-52.0) L Mean Corpuscular Volume 104 FL (80-99) H Mean Corpuscular Hemoglobin 32.7 PG (27.0-31.0) H Mean Corpuscular Hemoglobin Concent 31.6 G/DL (32.0-36.0) L Red Cell Distribution Width 21.2 % (11.6-14.8) H Platelet Count 213 K/UL (150-450) Mean Platelet Volume 8.6 FL (6.5-10.1) Neutrophils (%) (Auto) % (45.0-75.0) Lymphocytes (%) (Auto) % (20.0-45.0) Monocytes (%) (Auto) % (1.0-10.0) Eosinophils (%) (Auto) % (0.0-3.0) Basophils (%) (Auto) % (0.0-2.0) Differential Total Cells Counted 100 Neutrophils % (Manual) 34 % (45-75) L Lymphocytes % (Manual) 59 % (20-45) H Monocytes % (Manual) 7 % (1-10) Eosinophils % (Manual) 0 % (0-3) Basophils % (Manual) 0 % (0-2) Band Neutrophils 0 % (0-8) Platelet Estimate Adequate Platelet Morphology Normal Hypochromasia 2+ Macrocytosis 1+ Sodium Level 138 MMOL/L (136-145) Potassium Level 4.8 MMOL/L (3.5-5.1) Chloride Level 102 MMOL/L (98-107) Carbon Dioxide Level 27 MMOL/L (21-32) Anion Gap 9 mmol/L (5-15) Blood Urea Nitrogen 41 mg/dL (7-18) H Creatinine 2.8 MG/DL (0.55-1.30) H Estimat Glomerular Filtration Rate 28.1 mL/min (>60) Glucose Level 91 MG/DL (74-106) Calcium Level 8.8 MG/DL (8.5-10.1) Phosphorus Level 4.8 MG/DL (2.5-4.9) Troponin I 0.064 ng/mL (0.000-0.056) Albumin 2.9 G/DL (3.4-5.0) L Urine Eosinophils None seen Urine Random Creatinine Pending Urine Random Microalbumin Pending Urine Random Total Protein 21 MG/DL (< 11.9) H Urine Random Sodium < 10 mmol/L (20-110) L Urine Creatinine 107.3 MG/DL (30.0-125.0) Urine Microalbumin/Creatinine Ratio Pending Salvador Saavedra MD July 28, 2017 18:59
[2017-07-28 20:00] VITALS: BP 94/66
[2017-07-28] MEDS ORDERED: EMTRIVA ORAL SCH (20:00)
[2017-07-28] MEDS ORDERED: Dolutegravir Sodium 50mg tab ORAL SCH (20:00)
[2017-07-28] MEDS: ZIDOVUDINE 300MG TABLET ORAL SCH (20:23)
[2017-07-28] MEDS: Dyna-Hex 2% Top Sol 2oz TOPIC SCH (20:23)
--- NOTE | 2017-07-28 23:30 | Consultation ---
DATE OF CONSULTATION: 07/28/2017 CARDIOLOGY CONSULTATION CONSULTING PHYSICIAN: Salvador Saavedra M.D. REFERRING PHYSICIAN: Ludni Blair D.O. REASON FOR CONSULTATION: Management of heart failure. HISTORY OF PRESENT ILLNESS: The patient is a very unfortunate 62-year-old female, who presents to the hospital with complaints of fatigue, progressive worsening of shortness of breath, as well as chest pain. 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 The patient had associated bilateral lower extremity edema, PND, and orthopnea. She states that she had a coronary angiography done at [facility] and normally followed by Cardiology team at that facility. 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 PAST MEDICAL HISTORY: 1. Human immunodeficiency virus disease. 2. 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 3. History of nonischemic cardiomyopathy, due to some crystal meth use. Last ejection fraction is about 15%. 4. History of stage D congestive heart failure with NYHA class 4. 5. Status post automatic implanted cardioverter defibrillator pacemaker implantation. 6. History of chronic obstructive pulmonary disease. 7. History of DVT. 8. History of hepatitis C infection. PAST SURGICAL HISTORY: 1. IVC filter placement. 2. Automatic implanted cardioverter defibrillator pacemaker implantation. 3. Left foot toe amputation. ALLERGIES: No known drug allergies. FAMILY HISTORY: No premature coronary artery disease in the first-degree relatives. SOCIAL HISTORY: History of tobacco and alcohol use and 20 years of crystal meth use. REVIEW OF SYSTEMS: A 12-system review done is essentially negative except what is mentioned in the history of present illness. PHYSICAL EXAMINATION: VITAL SIGNS: Blood pressure is 92/70, respirations of 18, pulse of 122, temperature 98.0 degrees Fahrenheit, and O2 saturation 98% on room air. GENERAL: The patient is a very unfortunate 62-year-old female, in no apparent respiratory distress, sitting up in a chair, demanding painkillers. HEENT: Atraumatic, normocephalic, and anicteric. Pupils are equal, round, and reactive to light and accommodation. Extraocular muscles intact. NECK: JVP is elevated at about 15 cm. No carotid bruits. Carotid upstrokes 2+ bilaterally. CARDIOVASCULAR: Normal S1 and S2. Regular rate and rhythm. No murmurs, gallops, or rubs. PMI is at sixth intercostal space in the anterior axillary line. LUNGS: Diminished breath sounds in both lungs with no crackles. ABDOMEN: Distended. Cannot appreciate hepatosplenomegaly. Positive bowel sounds. EXTREMITIES: There is 4+ pitting edema. IMAGING: Chest x-ray showed cardiomegaly with automatic implanted cardioverter defibrillator pacemaker leads, bilateral basilar infiltration, and bilateral pleural effusion, most likely congestive heart failure. LABORATORY FINDINGS: Sodium is 139, potassium is 4.5, chloride 101, bicarbonate 93, BUN of 33, creatinine 2.5, and glucose is 105. Calcium is 9.0. Troponin I is 0.048 and second one is 0.064. ProBNP was 12,977. INR is 1.7. Toxicology was negative. WBC 7.1, hemoglobin 10.4, hematocrit 34.5, and platelet count is 231,000. A 12-lead electrocardiogram showed probably atrial tachycardia with ventricular paced rhythm at a rate of 118. ASSESSMENT AND PLAN: This is a very unfortunate 62-year-old female seen in Cardiology consultation at the request of Dr. Blair. 1. Acute on chronic congestive heart failure both systolic and diastolic. A 2D echocardiography was repeated and confirmed severe left ventricular systolic dysfunction with left ventricular ejection fraction of approximately 5% to 10%. I would like to add metolazone to the Lasix to decrease the preload especially in the fact that the creatinine is 2.5. 2. We will continue to monitor the patient's blood pressure. Given the fact that creatinine is 2.5, I would not be able to use spironolactone at this point. 3. She would probably benefit from digoxin low-dose every other day as well. As an outpatient setting, Entresto would be also a good option. 4. Status post automatic implanted cardioverter pacemaker implant. ECG shows atrial tachycardia with a ventricular paced rhythm. 5. History of deep venous thrombosis, on Coumadin. 6. History of atrial tachycardia, questionable history of atrial fibrillation, on amiodarone therapy. 7. 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 8. Severe pulmonary hypertension due to left heart failure. 9. Chronic kidney disease, most likely cardiorenal syndrome. 10. Stage D heart failure followed by [facility]. 11. Bilateral pleural effusion due to the right heart failure. I would like to thank, Dr. Blair, for allowing me to participate in the care of this interesting patient. Salvador Saavedra M.D. DR: LIZ JOB#: [id number] CC:
[2017-07-29] VITALS: BP 108/65
[2017-07-29 04:00] VITALS: BP 114/69
[2017-07-29 07:28] LABS: HEMATOCRIT 30.1 % (42.0-52.0); HEMOGLOBIN 9.3 G/DL (14.2-18.0); MEAN CORPUSCULAR VOLUME 103 FL (80-99); PLATELET COUNT 203 K/UL (150-450); RED BLOOD COUNT 2.94 M/UL (4.70-6.10); RED CELL DISTRIBUTION WIDTH 21.5 % (11.6-14.8); WHITE BLOOD COUNT 6.5 K/UL (4.8-10.8)
[2017-07-29 07:44] LABS: ANION GAP 9 mmol/L (5-15); BLOOD UREA NITROGEN 46 mg/dL (7-18); CALCIUM 8.7 MG/DL (8.5-10.1); CARBON DIOXIDE 28 MMOL/L (21-32); CHLORIDE 101 MMOL/L (98-107); CREATININE 2.9 MG/DL (0.55-1.30); POTASSIUM 3.7 MMOL/L (3.5-5.1); SODIUM 138 MMOL/L (136-145)
[2017-07-29 08:00] VITALS: BP 104/72
[2017-07-29] MEDS ORDERED: Emtricitabine 200mg tab ORAL SCH (09:00)
[2017-07-29] MEDS: Heparin 5000 units/ml inj SUBQ SCH ×2 (09:01→21:30)
[2017-07-29] MEDS: ZIDOVUDINE 300MG TABLET ORAL SCH ×2 (09:02→21:31)
--- NOTE | 2017-07-29 11:18 | Diagnostic Imaging Report ---
Indication: Acute renal failure Technique: Grayscale and duplex images of the kidneys, retroperitoneum, and bladder were obtained. Comparison: none Findings: Right kidney measures 10 cm in length. Left kidney measures 8.5 cm in length. Both kidneys demonstrate normal echogenicity. No hydronephrosis. Right kidney demonstrates a 15 mm cyst. No focal abnormality on the left. Normal inferior vena cava. Bladder is normal. There is a small amount of ascites fluid demonstrated. There is a small right pleural effusion Impression: Negative for hydronephrosis Ascites and small right pleural effusion noted Incidental finding right renal cyst .
[2017-07-29 12:00] VITALS: BP 93/54
--- NOTE | 2017-07-29 12:56 | Pulmonology Progress Note ---
Assessment/Plan Problems: (1) CHF exacerbation (2) Anasarca (3) Edema (4) SOB (shortness of breath) (5) EF 15% Assessment/Plan doing better respiratory treatment diuretics optimize cardiac meds all reviewed d/c planning Subjective ROS Limited/Unobtainable: No Constitutional: Reports: no symptoms HEENT: Repors: no symptoms Respiratory: Reports: no symptoms Allergies: Coded Allergies: No Known Allergies (Unverified , 05/29/17) Objective Last 24 Hour Vital Signs Date Time Temp Pulse Resp B/P (MAP) Pulse Ox O2 Delivery O2 Flow Rate FiO2 07/29/17 12:00 97.4 71 21 93/54 92 Room Air 97.4 07/29/17 12:00 70 07/29/17 08:05 78 20 Room Air 21 07/29/17 08:00 109 07/29/17 08:00 97.8 106 22 104/72 95 Room Air 97.8 07/29/17 06:33 67 07/29/17 04:00 96.7 82 22 114/69 95 Room Air 96.7 07/29/17 00:00 96.4 76 19 108/65 93 Room Air 96.4 07/29/17 00:00 75 07/28/17 21:12 73 18 Room Air 21 07/28/17 20:00 96.6 20 94/66 95 Room Air 96.6 07/28/17 20:00 69 07/28/17 18:24 125 107/60 07/28/17 16:00 97.5 121 21 107/60 94 Room Air 97.5 07/28/17 16:00 121 Intake and Output 07/28/17 07/29/17 19:00 07:00 Intake Total 500 ml Balance 500 ml Intake Oral 500 ml Bladder Scan Volume Amount 214 # Voids 2 General Appearance: cachetic HEENT: normocephalic, atraumatic Respiratory/Chest: chest wall non-tender, lungs clear Cardiovascular: normal peripheral pulses, regular rhythm Abdomen: normal bowel sounds, soft, non tender Genitourinary: normal external genitalia Skin: no rash Microbiology Date/Time Source Procedure Growth Status 07/27/17 16:18 Nasal Nares MRSA Culture - Final NO METHICILLIN RESISTANT STAPH AUREUS... Complete 07/27/17 16:19 Rectum VRE Culture - Final NO VANCOMYCIN RESISTANT ENTEROCOCCUS ... Complete Laboratory Tests 07/28/17 14:09: Urine Eosinophils None seen, Urine Random Creatinine [Pending], Urine Random Microalbumin [Pending], Urine Random Total Protein 21H, Urine Random Sodium < 10L, Urine Creatinine 107.3, Urine Microalbumin/Creatinine Ratio [Pending] 07/29/17 05:45: White Blood Count 6.5, Red Blood Count 2.94L, Hemoglobin 9.3L, Hematocrit 30.1L , Mean Corpuscular Volume 103H, Mean Corpuscular Hemoglobin 31.6H, Mean Corpuscular Hemoglobin Concent 30.9L, Red Cell Distribution Width 21.5H, Platelet Count 203, Mean Platelet Volume 8.5, Neutrophils (%) (Auto) , Lymphocytes (%) (Auto) , Monocytes (%) (Auto) , Eosinophils (%) (Auto) , Basophils (%) (Auto) , Differential Total Cells Counted 100, Neutrophils % ( Manual) 21L, Lymphocytes % (Manual) 68H, Monocytes % (Manual) 10, Eosinophils % (Manual) 0, Basophils % (Manual) 1, Band Neutrophils 0, Nucleated Red Blood Cells 3, Platelet Estimate Adequate, Platelet Morphology Normal, Hypochromasia 2 +, Anisocytosis 2+, Macrocytosis 1+, Target Cells 1+, Sodium Level 138, Potassium Level 3.7, Chloride Level 101, Carbon Dioxide Level 28, Anion Gap 9, Blood Urea Nitrogen 46H, Creatinine 2.9H, Estimat Glomerular Filtration Rate 27.0, Glucose Level 84, Calcium Level 8.7, Troponin I 0.040 Current Medications Medications (Trade) Dose Ordered Sig/Kane Route PRN Reason Start Time Stop Time Status Last Admin Dose Admin Acetaminophen (Tylenol) 650 mg Q4H PRN ORAL Mild Pain/Temp > 100.5 07/28/17 07:54 08/27/17 07:53 07/28/17 20:40 Albuterol/ Ipratropium (Albuterol/ Ipratropium) 3 ml Q4H PRN HHN Shortness of Breath 07/27/17 13:00 08/01/17 12:59 Chlorhexidine Gluconate (Michelle-Hex 2%) 1 applic DAILY@2000 TOPIC 07/27/17 20:00 08/26/17 19:59 07/28/17 20:23 Dextrose (Dextrose 50%) 25 ml PRN IV Hypoglycemia 07/27/17 12:45 08/26/17 12:44 Dextrose (Dextrose 50%) 50 ml PRN IV hypoglycemia 07/27/17 12:45 08/26/17 12:44 Furosemide (Lasix) 40 mg EVERY 8 HOURS IV 07/27/17 22:00 08/26/17 21:59 07/29/17 06:27 Gabapentin (Neurontin) 300 mg EVERY 6 HOURS ORAL 07/27/17 13:30 08/26/17 13:29 07/29/17 11:39 Heparin Sodium (Porcine) (Heparin 5000 units/ml) 5,000 units EVERY 12 HOURS SUBQ 07/27/17 21:00 08/26/17 20:59 07/29/17 09:01 Metolazone (Zaroxolyn) 5 mg DAILY ORAL 07/28/17 20:00 08/27/17 19:59 07/29/17 09:01 Ondansetron HCl (Zofran) 4 mg Q6H PRN IVP Nausea & Vomiting 07/27/17 13:00 08/26/17 12:59 Patient Own Medication (Patient's Own Med) 1 ea DZSC-[id number]@2000 ORAL 07/28/17 20:00 08/27/17 19:59 07/28/17 20:24 Patient Own Medication (Patient's Own Med) 200 ea Q12HR ORAL 07/28/17 21:00 08/27/17 20:59 07/29/17 09:02 Polyethylene Glycol (Miralax) 17 gm DAILYPRN PRN ORAL Constipation 07/27/17 13:00 08/26/17 12:59 Temazepam (Restoril) 15 mg HSPRN PRN ORAL Insomnia 07/27/17 21:00 08/03/17 20:59 07/28/17 22:07 Alise Hodge MD July 29, 2017 12:56
--- NOTE | 2017-07-29 13:36 | Consultation ---
Consult Note Consult Note [id number] CKD Herbie Marrero MD July 29, 2017 13:36
[2017-07-29] MEDS: Azithromycin 500 MG in D5W 275 ML IV SCH (15:06)
--- NOTE | 2017-07-29 15:27 | Nephrology Progress Note ---
Assessment/Plan Assessment 1. Acute renal failure, the etiology of acute renal failure is including ATN due to unstable hemodynamics versus cardiorenal syndrome. 2. CHF exacerbation and fluid overload. 3. Chronic kidney disease. 4. Hypertension. 5. Mild elevation of troponin. Plan plan continue diuretic daily wt check in and out put avoid NSAID replace electrolyte as need it monitoring renal function closely Subjective Constitutional: Reports: malaise, weakness HEENT: Reports: no symptoms Genitourinary: Reports: no symptoms Neurologic/Psychiatric: Reports: no symptoms Subjective feel better less sob out put was not document correctly also his wt was estimated Objective Objective Last 24 Hour Vital Signs Date Time Temp Pulse Resp B/P (MAP) Pulse Ox O2 Delivery O2 Flow Rate FiO2 07/29/17 12:00 97.4 71 21 93/54 92 Room Air 97.4 07/29/17 12:00 70 07/29/17 08:05 78 20 Room Air 21 07/29/17 08:00 109 07/29/17 08:00 97.8 106 22 104/72 95 Room Air 97.8 07/29/17 06:33 67 07/29/17 04:00 96.7 82 22 114/69 95 Room Air 96.7 07/29/17 00:00 96.4 76 19 108/65 93 Room Air 96.4 07/29/17 00:00 75 07/28/17 21:12 73 18 Room Air 21 07/28/17 20:00 96.6 20 94/66 95 Room Air 96.6 07/28/17 20:00 69 07/28/17 18:24 125 107/60 07/28/17 16:00 97.5 121 21 107/60 94 Room Air 97.5 07/28/17 16:00 121 Intake and Output 07/28/17 07/29/17 19:00 07:00 Intake Total 500 ml Balance 500 ml Intake Oral 500 ml Bladder Scan Volume Amount 214 # Voids 2 Laboratory Tests 07/29/17 05:45: White Blood Count 6.5, Red Blood Count 2.94L, Hemoglobin 9.3L, Hematocrit 30.1L , Mean Corpuscular Volume 103H, Mean Corpuscular Hemoglobin 31.6H, Mean Corpuscular Hemoglobin Concent 30.9L, Red Cell Distribution Width 21.5H, Platelet Count 203, Mean Platelet Volume 8.5, Neutrophils (%) (Auto) , Lymphocytes (%) (Auto) , Monocytes (%) (Auto) , Eosinophils (%) (Auto) , Basophils (%) (Auto) , Differential Total Cells Counted 100, Neutrophils % ( Manual) 21L, Lymphocytes % (Manual) 68H, Monocytes % (Manual) 10, Eosinophils % (Manual) 0, Basophils % (Manual) 1, Band Neutrophils 0, Nucleated Red Blood Cells 3, Platelet Estimate Adequate, Platelet Morphology Normal, Hypochromasia 2 +, Anisocytosis 2+, Macrocytosis 1+, Target Cells 1+, Sodium Level 138, Potassium Level 3.7, Chloride Level 101, Carbon Dioxide Level 28, Anion Gap 9, Blood Urea Nitrogen 46H, Creatinine 2.9H, Estimat Glomerular Filtration Rate 27.0, Glucose Level 84, Calcium Level 8.7, Troponin I 0.040 07/29/17 14:22: White Blood Count [Pending], Lymphocytes [Pending], Percent CD3 Cells [Pending] , Absolute CD3 Count [Pending], Percent CD4 Cells [Pending], Absolute CD4 Count [Pending], T-Lymphocyte CD4/CD8 Ratio [Pending], Percent CD8 Cells [Pending], Absolute CD8 Count [Pending] Height (Feet): 6 Height (Inches): 0.00 Weight (Pounds): 231 Objective HEAD AND NECK: No JVP. No LAD. No thyromegaly. Extraocular movement intact. Pupils are reactive to light and accommodation. LUNGS: Decreased breathing sounds of both sides. CARDIAC: Regular rate and rhythm. S1 and S2. No murmur. No rub. ABDOMEN: Soft, nontender, and nondistended. EXTREMITIES: A 3+ edema. No clubbing. No cyanosis. NEUROLOGIC: Cranial nerves II through XII within normal limits. Upper and lower extremities are grossly intact. Nida Thomas MD July 29, 2017 15:27
--- NOTE | 2017-07-29 15:37 | General Progress Note ---
Assessment/Plan Problem List: (1) Renal insufficiency ICD Codes: N28.9 - Disorder of kidney and ureter, unspecified SNOMED: 049753991, 457781366 (2) HTN (hypertension) ICD Codes: I10 - Essential (primary) hypertension SNOMED: 61023463 (3) DVT (deep venous thrombosis) ICD Codes: I82.409 - Acute embolism and thrombosis of unspecified deep veins of unspecified lower extremity SNOMED: 964292641 (4) SOB (shortness of breath) ICD Codes: R06.02 - Shortness of breath SNOMED: 332571428 (5) Edema ICD Codes: R60.9 - Edema, unspecified SNOMED: 758120818, 749986929 (6) CHF exacerbation ICD Codes: I50.9 - Heart failure, unspecified SNOMED: 55194971 Qualifiers: Qualified Codes: I50.43 - Acute on chronic combined systolic (congestive) and diastolic (congestive) heart failure Status: stable, progressing, tolerating diet Assessment/Plan ot pt diet o2 pulm tx abx cbc bmp am dc plan w hh Subjective Constitutional: Reports: weakness Respiratory: Reports: shortness of breath Allergies: Coded Allergies: No Known Allergies (Unverified , 05/29/17) All Systems: reviewed and negative except above Subjective sitting calm Objective Last 24 Hour Vital Signs Date Time Temp Pulse Resp B/P (MAP) Pulse Ox O2 Delivery O2 Flow Rate FiO2 07/29/17 12:00 97.4 71 21 93/54 92 Room Air 97.4 07/29/17 12:00 70 07/29/17 08:05 78 20 Room Air 21 07/29/17 08:00 109 07/29/17 08:00 97.8 106 22 104/72 95 Room Air 97.8 07/29/17 06:33 67 07/29/17 04:00 96.7 82 22 114/69 95 Room Air 96.7 07/29/17 00:00 96.4 76 19 108/65 93 Room Air 96.4 07/29/17 00:00 75 07/28/17 21:12 73 18 Room Air 21 07/28/17 20:00 96.6 20 94/66 95 Room Air 96.6 07/28/17 20:00 69 07/28/17 18:24 125 107/60 07/28/17 16:00 97.5 121 21 107/60 94 Room Air 97.5 07/28/17 16:00 121 Intake and Output 07/28/17 07/29/17 19:00 07:00 Intake Total 500 ml Balance 500 ml Intake Oral 500 ml Bladder Scan Volume Amount 214 # Voids 2 Laboratory Tests 07/29/17 05:45: White Blood Count 6.5, Red Blood Count 2.94L, Hemoglobin 9.3L, Hematocrit 30.1L , Mean Corpuscular Volume 103H, Mean Corpuscular Hemoglobin 31.6H, Mean Corpuscular Hemoglobin Concent 30.9L, Red Cell Distribution Width 21.5H, Platelet Count 203, Mean Platelet Volume 8.5, Neutrophils (%) (Auto) , Lymphocytes (%) (Auto) , Monocytes (%) (Auto) , Eosinophils (%) (Auto) , Basophils (%) (Auto) , Differential Total Cells Counted 100, Neutrophils % ( Manual) 21L, Lymphocytes % (Manual) 68H, Monocytes % (Manual) 10, Eosinophils % (Manual) 0, Basophils % (Manual) 1, Band Neutrophils 0, Nucleated Red Blood Cells 3, Platelet Estimate Adequate, Platelet Morphology Normal, Hypochromasia 2 +, Anisocytosis 2+, Macrocytosis 1+, Target Cells 1+, Sodium Level 138, Potassium Level 3.7, Chloride Level 101, Carbon Dioxide Level 28, Anion Gap 9, Blood Urea Nitrogen 46H, Creatinine 2.9H, Estimat Glomerular Filtration Rate 27.0, Glucose Level 84, Calcium Level 8.7, Troponin I 0.040 07/29/17 14:22: White Blood Count [Pending], Lymphocytes [Pending], Percent CD3 Cells [Pending] , Absolute CD3 Count [Pending], Percent CD4 Cells [Pending], Absolute CD4 Count [Pending], T-Lymphocyte CD4/CD8 Ratio [Pending], Percent CD8 Cells [Pending], Absolute CD8 Count [Pending] Height (Feet): 6 Height (Inches): 0.00 Weight (Pounds): 231 General Appearance: lethargic EENT: normal ENT inspection Neck: normal alignment Cardiovascular: normal peripheral pulses, normal rate, regular rhythm Respiratory/Chest: chest wall non-tender, decreased breath sounds Abdomen: normal bowel sounds, non tender, soft Extremities: normal inspection Edema: 1+ Arm (L), 1+ Arm (R), 1+ Leg (L), 1+ Leg (R), 1+ Pedal (L), 1+ Pedal ( R), 1+ Generalized Edema: trace edema Neurologic: responsive, motor weakness Skin: normal pigmentation, warm/dry Ludin Blair DO July 29, 2017 15:37
[2017-07-29 16:00] VITALS: BP 77/56
--- NOTE | 2017-07-29 16:46 | Cardiology Progress Note ---
Assessment/Plan Assessment/Plan 1. Acute on chronic congestive heart failure both systolic and diastolic. LVEF at 5% to 10%, continue metolazone and lasix if OK with nephrology. 2. Status post automatic implanted cardioverter pacemaker implant. environmental monitoring specialist reveals sinus rhythm with a ventricular paced rhythm. 12 lead ECG today. 3. History of deep venous thrombosis, on Coumadin. 4. 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 5. Severe pulmonary hypertension due to left heart failure. 6. Chronic kidney disease, most likely cardiorenal syndrome. 7. Stage D heart failure followed by [facility]. 8. Bilateral pleural effusion due to the right heart failure. Subjective Subjective Sinus rhythm at 76 with ventricular paced rhythm. Objective Last 24 Hour Vital Signs Date Time Temp Pulse Resp B/P (MAP) Pulse Ox O2 Delivery O2 Flow Rate FiO2 07/29/17 12:00 97.4 71 21 93/54 92 Room Air 97.4 07/29/17 12:00 70 07/29/17 08:05 78 20 Room Air 21 07/29/17 08:00 109 07/29/17 08:00 97.8 106 22 104/72 95 Room Air 97.8 07/29/17 06:33 67 07/29/17 04:00 96.7 82 22 114/69 95 Room Air 96.7 07/29/17 00:00 96.4 76 19 108/65 93 Room Air 96.4 07/29/17 00:00 75 07/28/17 21:12 73 18 Room Air 21 07/28/17 20:00 96.6 20 94/66 95 Room Air 96.6 07/28/17 20:00 69 07/28/17 18:24 125 107/60 Intake and Output 07/28/17 07/29/17 19:00 07:00 Intake Total 500 ml Balance 500 ml Intake Oral 500 ml Bladder Scan Volume Amount 214 # Voids 2 2D Echo: EF 10%, Global LV HK, Septal wall HK, RVSP 62 mmHg, Mod MR, Grade II LVDD Laboratory Tests Test 07/29/17 05:45 07/29/17 14:22 White Blood Count 6.5 K/UL (4.8-10.8) Pending Red Blood Count 2.94 M/UL (4.70-6.10) L Hemoglobin 9.3 G/DL (14.2-18.0) L Hematocrit 30.1 % (42.0-52.0) L Mean Corpuscular Volume 103 FL (80-99) H Mean Corpuscular Hemoglobin 31.6 PG (27.0-31.0) H Mean Corpuscular Hemoglobin Concent 30.9 G/DL (32.0-36.0) L Red Cell Distribution Width 21.5 % (11.6-14.8) H Platelet Count 203 K/UL (150-450) Mean Platelet Volume 8.5 FL (6.5-10.1) Neutrophils (%) (Auto) % (45.0-75.0) Lymphocytes (%) (Auto) % (20.0-45.0) Monocytes (%) (Auto) % (1.0-10.0) Eosinophils (%) (Auto) % (0.0-3.0) Basophils (%) (Auto) % (0.0-2.0) Differential Total Cells Counted 100 Neutrophils % (Manual) 21 % (45-75) L Lymphocytes % (Manual) 68 % (20-45) H Monocytes % (Manual) 10 % (1-10) Eosinophils % (Manual) 0 % (0-3) Basophils % (Manual) 1 % (0-2) Band Neutrophils 0 % (0-8) Nucleated Red Blood Cells 3 /100 WBC Platelet Estimate Adequate Platelet Morphology Normal Hypochromasia 2+ Anisocytosis 2+ Macrocytosis 1+ Target Cells 1+ Sodium Level 138 MMOL/L (136-145) Potassium Level 3.7 MMOL/L (3.5-5.1) Chloride Level 101 MMOL/L (98-107) Carbon Dioxide Level 28 MMOL/L (21-32) Anion Gap 9 mmol/L (5-15) Blood Urea Nitrogen 46 mg/dL (7-18) H Creatinine 2.9 MG/DL (0.55-1.30) H Estimat Glomerular Filtration Rate 27.0 mL/min (>60) Glucose Level 84 MG/DL (74-106) Calcium Level 8.7 MG/DL (8.5-10.1) Troponin I 0.040 ng/mL (0.000-0.056) Lymphocytes Pending Percent CD3 Cells Pending Absolute CD3 Count Pending Percent CD4 Cells Pending Absolute CD4 Count Pending T-Lymphocyte CD4/CD8 Ratio Pending Percent CD8 Cells Pending Absolute CD8 Count Pending Microbiology Date/Time Source Procedure Growth Status 07/27/17 16:18 Nasal Nares MRSA Culture - Final NO METHICILLIN RESISTANT STAPH AUREUS... Complete 07/27/17 16:19 Rectum VRE Culture - Final NO VANCOMYCIN RESISTANT ENTEROCOCCUS ... Complete Objective HEENT: Atraumatic, normocephalic, and anicteric. Pupils are equal, round, and reactive to light and accommodation. Extraocular muscles intact. NECK: JVP is elevated at about 15 cm. No carotid bruits. Carotid upstrokes 2+ bilaterally. CARDIOVASCULAR: Normal S1 and S2. Regular rate and rhythm. No murmurs, gallops, or rubs. PMI is at sixth intercostal space in the anterior axillary line. LUNGS: Diminished breath sounds in both lungs with no crackles. ABDOMEN: Distended. Cannot appreciate hepatosplenomegaly. Positive bowel sounds. EXTREMITIES: There is 4+ pitting edema. Salvador Saavedra MD July 29, 2017 16:46
--- NOTE | 2017-07-29 17:31 | Consultation ---
DATE OF CONSULTATION: 07/29/2017 Addendum ASSESSMENT: 1. Congestive heart failure. Ejection fraction 15%. 2. Chronic obstructive pulmonary disease exacerbation. PLAN: 1. We will start the patient on Zithromax for COPD exacerbation. 2. Continue the patient on . 3. Monitor CBC. 4. Monitor BMP. 5. Monitor chest x-ray. 6. CD4 count. 7. Based on the patient's clinical course and labs, we will do further recommendation. Thank you for this consultation. I will follow the patient with you during this admission. Herbie Marrero M.D. DR: SELENE JOB#: [id number] CC:
[2017-07-29] MEDS ORDERED: Dolutegravir Sodium 50mg tab ORAL SCH (18:00)
--- NOTE | 2017-07-29 18:31 | Consultation ---
DATE OF CONSULTATION: 07/29/2017 NOTE: INCOMPLETE DICTATION INFECTIOUS DISEASE CONSULTATION CONSULTING PHYSICIAN: Herbie Marrero M.D. REASON FOR CONSULTATION: Evaluation of the patient for pneumonia. HISTORY OF PRESENT ILLNESS: The patient is a 62-year-old male, who was admitted to this medical center for shortness of breath. The patient was admitted with impression of pneumonia. An Infectious Disease consultation has been requested for further evaluation of the patient's antibiotic management. PAST MEDICAL HISTORY: 1. HIV on antiretroviral the patient has CD4 count of 1200 and undetectable viral load. 2. History of hepatitis C (pending treatment). 3. History of bilateral lower extremity DVT status post IVC filter placement. 4. History of AICD and pacemaker placement. 5. 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 6. History of amputation of left first and third toes. MEDICATIONS: The patient is on Tivicay, emtricitabine and other HIV medication (does not remember the name). ALLERGIES: No known drug allergies. SOCIAL HISTORY: Significant for smoking. No history of alcohol or drug abuse. REVIEW OF SYSTEMS: HEENT: No recent change in vision or hearing. PULMONARY: As mentioned above. The patient has shortness of breath and still has dry cough since yesterday. CARDIOVASCULAR: The patient had chest pain at the time of admission. GENITOURINARY: No nausea, vomiting or diarrhea. GENITOURINARY: No dysuria. PHYSICAL EXAMINATION: VITAL SIGNS: Temperature 97.4 degrees, blood pressure 93/54, pulse 71, and respiratory rate 18. HEENT: No pale conjunctivae. No icterus. NECK: No lymphadenopathy. CHEST: Clear. Mild coarse breath sounds at the bases of both lungs. HEART: S1 and S2. ABDOMEN: Soft. Nontender. EXTREMITY: No cyanosis noted. NEUROLOGIC: Awake and alert. LABORATORY AND DIAGNOSTIC DATA: White blood cells 6, hemoglobin 9, and platelet 205,000. UA unremarkable. BUN 46 and creatinine 2.9. Ultrasound negative for hydronephrosis, small right pleural effusion. Chest x-ray, bilateral basilar infiltrates likely bilateral pleural fluids. Pulmonary congestion. ASSESSMENT: 1. The patient is a 62-year-old male with cough/bronchitis. 2. HIV, apparently well controlled on ARVs (CD4 count 1200 and undetectable viral load). Herbie Marrero M.D. DR: SIS JOB#: [id number] CC:
[2017-07-29 20:00] VITALS: BP 96/74
[2017-07-29] MEDS: Dyna-Hex 2% Top Sol 2oz TOPIC SCH (21:30)
[2017-07-30] VITALS: BP 107/66
[2017-07-30 04:00] VITALS: BP 93/55
[2017-07-30 05:20] LABS: HEMATOCRIT 30.1 % (42.0-52.0); HEMOGLOBIN 9.4 G/DL (14.2-18.0); MEAN CORPUSCULAR VOLUME 103 FL (80-99); PLATELET COUNT 216 K/UL (150-450); RED BLOOD COUNT 2.91 M/UL (4.70-6.10); RED CELL DISTRIBUTION WIDTH 22.3 % (11.6-14.8); WHITE BLOOD COUNT 7.2 K/UL (4.8-10.8)
[2017-07-30 05:24] LABS: ANION GAP 8 mmol/L (5-15); BLOOD UREA NITROGEN 43 mg/dL (7-18); CALCIUM 8.8 MG/DL (8.5-10.1); CARBON DIOXIDE 31 MMOL/L (21-32); CHLORIDE 98 MMOL/L (98-107); CREATININE 2.8 MG/DL (0.55-1.30); POTASSIUM 3.1 MMOL/L (3.5-5.1); SODIUM 137 MMOL/L (136-145)
[2017-07-30 08:00] VITALS: BP 100/63
[2017-07-30] MEDS: Heparin 5000 units/ml inj SUBQ SCH ×2 (09:01→21:36)
[2017-07-30] MEDS: ZIDOVUDINE 300MG TABLET ORAL SCH ×2 (09:02→21:33)
--- NOTE | 2017-07-30 11:07 | General Progress Note ---
Assessment/Plan Problem List: (1) Renal insufficiency ICD Codes: N28.9 - Disorder of kidney and ureter, unspecified SNOMED: 970471416, 178416686 (2) HTN (hypertension) ICD Codes: I10 - Essential (primary) hypertension SNOMED: 46185725 (3) DVT (deep venous thrombosis) ICD Codes: I82.409 - Acute embolism and thrombosis of unspecified deep veins of unspecified lower extremity SNOMED: 388391692 (4) SOB (shortness of breath) ICD Codes: R06.02 - Shortness of breath SNOMED: 904248508 (5) Edema ICD Codes: R60.9 - Edema, unspecified SNOMED: 617237800, 318595862 (6) CHF exacerbation ICD Codes: I50.9 - Heart failure, unspecified SNOMED: 73072663 Qualifiers: Qualified Codes: I50.43 - Acute on chronic combined systolic (congestive) and diastolic (congestive) heart failure Status: stable, progressing, tolerating diet Assessment/Plan ot pt diet o2 pulm tx abx cbc bmp am dc w hh if clear Subjective Constitutional: Reports: weakness Allergies: Coded Allergies: No Known Allergies (Unverified , 05/29/17) All Systems: reviewed and negative except above Subjective sleepy calm Objective Last 24 Hour Vital Signs Date Time Temp Pulse Resp B/P (MAP) Pulse Ox O2 Delivery O2 Flow Rate FiO2 07/30/17 08:00 97.5 105 18 100/63 97 Room Air 97.5 07/30/17 07:51 84 18 Room Air 21 07/30/17 04:00 68 07/30/17 04:00 97.0 106 20 93/55 96 Room Air 97.0 07/30/17 00:00 74 07/30/17 00:00 98.4 72 20 107/66 96 Room Air 98.4 07/29/17 20:00 117 07/29/17 20:00 97.7 116 20 96/74 96 Room Air 97.7 07/29/17 19:56 82 20 Room Air 21 07/29/17 16:00 74 07/29/17 16:00 97.5 77 20 77/56 98 Room Air 97.5 07/29/17 12:00 97.4 71 21 93/54 92 Room Air 97.4 07/29/17 12:00 70 Intake and Output 07/29/17 07/30/17 19:00 07:00 Intake Total 275 ml Output Total 1700 ml 1450 ml Balance -1425 ml -1450 ml IV Total 275 ml Output Urine Total 1700 ml 1450 ml Laboratory Tests 07/29/17 14:22: White Blood Count [Pending], Lymphocytes [Pending], Percent CD3 Cells [Pending] , Absolute CD3 Count [Pending], Percent CD4 Cells [Pending], Absolute CD4 Count [Pending], T-Lymphocyte CD4/CD8 Ratio [Pending], Percent CD8 Cells [Pending], Absolute CD8 Count [Pending] 07/30/17 05:00: White Blood Count 7.2, Red Blood Count 2.91L, Hemoglobin 9.4L, Hematocrit 30.1L , Mean Corpuscular Volume 103H, Mean Corpuscular Hemoglobin 32.5H, Mean Corpuscular Hemoglobin Concent 31.4L, Red Cell Distribution Width 22.3H, Platelet Count 216, Mean Platelet Volume 7.8, Neutrophils (%) (Auto) , Lymphocytes (%) (Auto) , Monocytes (%) (Auto) , Eosinophils (%) (Auto) , Basophils (%) (Auto) , Differential Total Cells Counted 100, Neutrophils % ( Manual) 24L, Lymphocytes % (Manual) 67H, Monocytes % (Manual) 9, Eosinophils % ( Manual) 0, Basophils % (Manual) 0, Band Neutrophils 0, Nucleated Red Blood Cells 2, Platelet Estimate Adequate, Platelet Morphology Normal, Polychromasia 1 +, Hypochromasia 1+, Anisocytosis 2+, Macrocytosis 1+, Target Cells Occasional, Sodium Level 137, Potassium Level 3.1L, Chloride Level 98, Carbon Dioxide Level 31, Anion Gap 8, Blood Urea Nitrogen 43H, Creatinine 2.8H, Estimat Glomerular Filtration Rate 28.1, Glucose Level 92, Calcium Level 8.8, Pro-B-Type Natriuretic Peptide 6952H Height (Feet): 6 Height (Inches): 0.00 Weight (Pounds): 229 General Appearance: lethargic EENT: normal ENT inspection Neck: normal alignment Cardiovascular: normal peripheral pulses, normal rate, regular rhythm Respiratory/Chest: chest wall non-tender, decreased breath sounds Abdomen: normal bowel sounds, non tender, soft Extremities: normal inspection Edema: 1+ Arm (L), 1+ Arm (R), 1+ Leg (L), 1+ Leg (R), 1+ Pedal (L), 1+ Pedal ( R), 1+ Generalized Edema: trace edema Neurologic: responsive, motor weakness Skin: normal pigmentation, warm/dry Ludin Blair DO July 30, 2017 11:07
[2017-07-30 12:00] VITALS: BP 91/54
--- NOTE | 2017-07-30 14:22 | Infectious Diseases Prog Note ---
Assessment/Plan Assessment/Plan ASSESSMENT: The patient is a 62-year-old male cough/bronchitis/ COPD exacerbation HIV on antiretroviral ( CD4 count of 1200 and Undetectable viral load ) History of hepatitis C (pending treatment). ANTHONY History of bilateral lower extremity DVT status post IVC filter placement. SP AICD and pacemaker placement. SP splenectomy (? Indication). SP amputation of left first and third toes Congestive heart failure. Ejection fraction 15%. PLAN: Cont pt on Zithromax d# 2 / 5 . Continue the patient on ARVMonitor CBC. Monitor BMP/ CBC Monitor chest x-ray. CD4 count. Card and pul , [place] following Subjective Allergies: Coded Allergies: No Known Allergies (Unverified , 05/29/17) Subjective no new complain Objective Vital Signs Last 24 Hour Vital Signs Date Time Temp Pulse Resp B/P (MAP) Pulse Ox O2 Delivery O2 Flow Rate FiO2 07/30/17 12:00 97.3 101 18 91/54 94 Room Air 97.3 07/30/17 12:00 105 07/30/17 08:00 76 07/30/17 08:00 97.5 105 18 100/63 97 Room Air 97.5 07/30/17 07:51 84 18 Room Air 21 07/30/17 04:00 68 07/30/17 04:00 97.0 106 20 93/55 96 Room Air 97.0 07/30/17 00:00 74 07/30/17 00:00 98.4 72 20 107/66 96 Room Air 98.4 07/29/17 20:00 117 07/29/17 20:00 97.7 116 20 96/74 96 Room Air 97.7 07/29/17 19:56 82 20 Room Air 21 07/29/17 16:00 74 07/29/17 16:00 97.5 77 20 77/56 98 Room Air 97.5 Height (Feet): 6 Height (Inches): 0.00 Weight (Pounds): 229 HEENT: anicteric Respiratory/Chest: no respiratory distress Cardiovascular: regular rhythm Abdomen: no organomegaly Microbiology Date/Time Source Procedure Growth Status 07/27/17 16:18 Nasal Nares MRSA Culture - Final NO METHICILLIN RESISTANT STAPH AUREUS... Complete 07/27/17 16:19 Rectum VRE Culture - Final NO VANCOMYCIN RESISTANT ENTEROCOCCUS ... Complete Laboratory Tests Test 07/29/17 14:22 07/30/17 05:00 White Blood Count Pending 7.2 K/UL (4.8-10.8) Lymphocytes Pending Percent CD3 Cells Pending Absolute CD3 Count Pending Percent CD4 Cells Pending Absolute CD4 Count Pending T-Lymphocyte CD4/CD8 Ratio Pending Percent CD8 Cells Pending Absolute CD8 Count Pending Red Blood Count 2.91 M/UL (4.70-6.10) L Hemoglobin 9.4 G/DL (14.2-18.0) L Hematocrit 30.1 % (42.0-52.0) L Mean Corpuscular Volume 103 FL (80-99) H Mean Corpuscular Hemoglobin 32.5 PG (27.0-31.0) H Mean Corpuscular Hemoglobin Concent 31.4 G/DL (32.0-36.0) L Red Cell Distribution Width 22.3 % (11.6-14.8) H Platelet Count 216 K/UL (150-450) Mean Platelet Volume 7.8 FL (6.5-10.1) Neutrophils (%) (Auto) % (45.0-75.0) Lymphocytes (%) (Auto) % (20.0-45.0) Monocytes (%) (Auto) % (1.0-10.0) Eosinophils (%) (Auto) % (0.0-3.0) Basophils (%) (Auto) % (0.0-2.0) Differential Total Cells Counted 100 Neutrophils % (Manual) 24 % (45-75) L Lymphocytes % (Manual) 67 % (20-45) H Monocytes % (Manual) 9 % (1-10) Eosinophils % (Manual) 0 % (0-3) Basophils % (Manual) 0 % (0-2) Band Neutrophils 0 % (0-8) Nucleated Red Blood Cells 2 /100 WBC Platelet Estimate Adequate Platelet Morphology Normal Polychromasia 1+ Hypochromasia 1+ Anisocytosis 2+ Macrocytosis 1+ Target Cells Occasional Sodium Level 137 MMOL/L (136-145) Potassium Level 3.1 MMOL/L (3.5-5.1) L Chloride Level 98 MMOL/L (98-107) Carbon Dioxide Level 31 MMOL/L (21-32) Anion Gap 8 mmol/L (5-15) Blood Urea Nitrogen 43 mg/dL (7-18) H Creatinine 2.8 MG/DL (0.55-1.30) H Estimat Glomerular Filtration Rate 28.1 mL/min (>60) Glucose Level 92 MG/DL (74-106) Calcium Level 8.8 MG/DL (8.5-10.1) Pro-B-Type Natriuretic Peptide 6952 pg/mL (0-125) H Current Medications Medications (Trade) Dose Ordered Sig/Kane Route PRN Reason Start Time Stop Time Status Last Admin Dose Admin Acetaminophen (Tylenol) 650 mg Q4H PRN ORAL Mild Pain/Temp > 100.5 07/28/17 07:54 08/27/17 07:53 07/28/17 20:40 Albuterol/ Ipratropium (Albuterol/ Ipratropium) 3 ml Q4H PRN HHN Shortness of Breath 07/27/17 13:00 08/01/17 12:59 Azithromycin 500 mg/Dextrose 275 ml @ 275 mls/hr Q24HRS IV 07/29/17 15:30 08/04/17 16:29 07/29/17 15:06 Chlorhexidine Gluconate (Michelle-Hex 2%) 1 applic DAILY@2000 TOPIC 07/27/17 20:00 08/26/17 19:59 07/29/17 21:30 Dextrose (Dextrose 50%) 25 ml PRN IV Hypoglycemia 07/27/17 12:45 08/26/17 12:44 Dextrose (Dextrose 50%) 50 ml PRN IV hypoglycemia 07/27/17 12:45 08/26/17 12:44 Dolutegravir Sodium (Tivicay) 50 mg Q24H ORAL 07/30/17 18:00 08/29/17 17:59 Furosemide (Lasix) 40 mg EVERY 8 HOURS IV 07/27/17 22:00 08/26/17 21:59 07/30/17 13:13 Gabapentin (Neurontin) 300 mg EVERY 6 HOURS ORAL 07/27/17 13:30 08/26/17 13:29 07/30/17 11:38 Heparin Sodium (Porcine) (Heparin 5000 units/ml) 5,000 units EVERY 12 HOURS SUBQ 07/27/17 21:00 08/26/17 20:59 07/30/17 09:01 Metolazone (Zaroxolyn) 5 mg DAILY ORAL 07/28/17 20:00 08/27/17 19:59 07/30/17 09:02 Ondansetron HCl (Zofran) 4 mg Q6H PRN IVP Nausea & Vomiting 07/27/17 13:00 08/26/17 12:59 Patient Own Medication (Patient's Own Med) 1 ea [id number]@1999 ORAL 07/28/17 20:00 08/27/17 19:59 07/28/17 20:24 Patient Own Medication (Patient's Own Med) 200 ea Q12HR ORAL 07/28/17 21:00 08/27/17 20:59 07/30/17 09:02 Polyethylene Glycol (Miralax) 17 gm DAILYPRN PRN ORAL Constipation 07/27/17 13:00 08/26/17 12:59 Temazepam (Restoril) 15 mg HSPRN PRN ORAL Insomnia 07/27/17 21:00 08/03/17 20:59 07/28/17 22:07 Herbie Marrero MD July 30, 2017 14:22
[2017-07-30] MEDS: Azithromycin 500 MG in D5W 275 ML IV SCH (14:59)
[2017-07-30] MEDS ORDERED: NS 275ml ONE (15:06)
[2017-07-30] MEDS ORDERED: Tubing IV Secondary IV ONE (15:06)
--- NOTE | 2017-07-30 15:59 | Nephrology Progress Note ---
Assessment/Plan Assessment 1. Acute renal failure, stable. 2. CHF exacerbation and fluid overload. 3. Chronic kidney disease. 4. Hypokalemia 5. Mild elevation of troponin. Plan plan continue diuretic daily wt check in and out put avoid NSAID replace electrolyte as need it monitoring renal function closely Subjective Subjective feel better less sob Objective Objective Last 24 Hour Vital Signs Date Time Temp Pulse Resp B/P (MAP) Pulse Ox O2 Delivery O2 Flow Rate FiO2 07/30/17 12:00 97.3 101 18 91/54 94 Room Air 97.3 07/30/17 12:00 105 07/30/17 08:00 76 07/30/17 08:00 97.5 105 18 100/63 97 Room Air 97.5 07/30/17 07:51 84 18 Room Air 21 07/30/17 04:00 68 07/30/17 04:00 97.0 106 20 93/55 96 Room Air 97.0 07/30/17 00:00 74 07/30/17 00:00 98.4 72 20 107/66 96 Room Air 98.4 07/29/17 20:00 117 07/29/17 20:00 97.7 116 20 96/74 96 Room Air 97.7 07/29/17 19:56 82 20 Room Air 21 07/29/17 16:00 74 07/29/17 16:00 97.5 77 20 77/56 98 Room Air 97.5 Intake and Output 07/29/17 07/30/17 19:00 07:00 Intake Total 275 ml Output Total 1700 ml 1450 ml Balance -1425 ml -1450 ml IV Total 275 ml Output Urine Total 1700 ml 1450 ml Laboratory Tests 07/30/17 05:00: White Blood Count 7.2, Red Blood Count 2.91L, Hemoglobin 9.4L, Hematocrit 30.1L , Mean Corpuscular Volume 103H, Mean Corpuscular Hemoglobin 32.5H, Mean Corpuscular Hemoglobin Concent 31.4L, Red Cell Distribution Width 22.3H, Platelet Count 216, Mean Platelet Volume 7.8, Neutrophils (%) (Auto) , Lymphocytes (%) (Auto) , Monocytes (%) (Auto) , Eosinophils (%) (Auto) , Basophils (%) (Auto) , Differential Total Cells Counted 100, Neutrophils % ( Manual) 24L, Lymphocytes % (Manual) 67H, Monocytes % (Manual) 9, Eosinophils % ( Manual) 0, Basophils % (Manual) 0, Band Neutrophils 0, Nucleated Red Blood Cells 2, Platelet Estimate Adequate, Platelet Morphology Normal, Polychromasia 1 +, Hypochromasia 1+, Anisocytosis 2+, Macrocytosis 1+, Target Cells Occasional, Sodium Level 137, Potassium Level 3.1L, Chloride Level 98, Carbon Dioxide Level 31, Anion Gap 8, Blood Urea Nitrogen 43H, Creatinine 2.8H, Estimat Glomerular Filtration Rate 28.1, Glucose Level 92, Calcium Level 8.8, Pro-B-Type Natriuretic Peptide 6952H Height (Feet): 6 Height (Inches): 0.00 Weight (Pounds): 229 Objective HEAD AND NECK: No JVP. No LAD. No thyromegaly. Extraocular movement intact. Pupils are reactive to light and accommodation. LUNGS: Decreased breathing sounds of both sides. CARDIAC: Regular rate and rhythm. S1 and S2. No murmur. No rub. ABDOMEN: Soft, nontender, and nondistended. EXTREMITIES: A 3+ edema. No clubbing. No cyanosis. NEUROLOGIC: Cranial nerves II through XII within normal limits. Upper and lower extremities are grossly intact. Nida Thomas MD July 30, 2017 15:59
[2017-07-30 16:00] VITALS: BP 103/59
[2017-07-30] MEDS: Dolutegravir Sodium 50mg tab ORAL SCH (17:32)
[2017-07-30 20:00] VITALS: BP 106/67
[2017-07-30] MEDS: Dyna-Hex 2% Top Sol 2oz TOPIC SCH (20:00)
[2017-07-31] VITALS: BP 93/62
[2017-07-31 04:00] VITALS: BP 91/49
[2017-07-31 05:49] LABS: HEMATOCRIT 29.7 % (42.0-52.0); HEMOGLOBIN 9.4 G/DL (14.2-18.0); MEAN CORPUSCULAR VOLUME 103 FL (80-99); PLATELET COUNT 217 K/UL (150-450); RED BLOOD COUNT 2.88 M/UL (4.70-6.10); RED CELL DISTRIBUTION WIDTH 22.4 % (11.6-14.8); WHITE BLOOD COUNT 6.9 K/UL (4.8-10.8)
[2017-07-31 06:11] LABS: ANION GAP 8 mmol/L (5-15); BLOOD UREA NITROGEN 44 mg/dL (7-18); CALCIUM 9.2 MG/DL (8.5-10.1); CARBON DIOXIDE 34 MMOL/L (21-32); CHLORIDE 96 MMOL/L (98-107); CREATININE 2.5 MG/DL (0.55-1.30); SODIUM 137 MMOL/L (136-145)
[2017-07-31 06:24] LABS: POTASSIUM 2.7 MMOL/L (3.5-5.1)
[2017-07-31 08:00] VITALS: BP 96/73
[2017-07-31] MEDS: Heparin 5000 units/ml inj SUBQ SCH (08:18)
[2017-07-31] MEDS ORDERED: ZIDOVUDINE 300MG TABLET ORAL SCH (09:00)
--- NOTE | 2017-07-31 10:03 | General Progress Note ---
Assessment/Plan Problem List: (1) Renal insufficiency ICD Codes: N28.9 - Disorder of kidney and ureter, unspecified SNOMED: 695932231, 666331164 (2) HTN (hypertension) ICD Codes: I10 - Essential (primary) hypertension SNOMED: 14616779 (3) DVT (deep venous thrombosis) ICD Codes: I82.409 - Acute embolism and thrombosis of unspecified deep veins of unspecified lower extremity SNOMED: 581193196 (4) SOB (shortness of breath) ICD Codes: R06.02 - Shortness of breath SNOMED: 091139888 (5) Edema ICD Codes: R60.9 - Edema, unspecified SNOMED: 901817756, 187562540 (6) CHF exacerbation ICD Codes: I50.9 - Heart failure, unspecified SNOMED: 92066698 Qualifiers: Qualified Codes: I50.43 - Acute on chronic combined systolic (congestive) and diastolic (congestive) heart failure Status: unchanged Assessment/Plan ot pt diet o2 pulm tx abx cbc bmp am dc w hh if clear Subjective Constitutional: Reports: weakness Allergies: Coded Allergies: No Known Allergies (Unverified , 05/29/17) All Systems: reviewed and negative except above Subjective sleepy calm Objective Last 24 Hour Vital Signs Date Time Temp Pulse Resp B/P (MAP) Pulse Ox O2 Delivery O2 Flow Rate FiO2 07/31/17 08:21 75 20 Room Air 21 07/31/17 08:00 97.7 71 20 96/73 92 Room Air 97.7 07/31/17 04:00 96.8 71 20 91/49 94 Room Air 96.8 07/31/17 04:00 69 07/31/17 00:00 68 07/31/17 00:00 97.3 77 21 93/62 93 Room Air 97.3 07/30/17 20:00 70 07/30/17 20:00 72 20 Room Air 21 07/30/17 20:00 98.2 85 20 106/67 93 Room Air 98.2 07/30/17 16:00 68 07/30/17 16:00 98.1 69 18 103/59 95 Room Air 98.1 07/30/17 12:00 97.3 101 18 91/54 94 Room Air 97.3 07/30/17 12:00 105 Intake and Output 07/30/17 07/31/17 19:00 07:00 Intake Total 995 ml 240 ml Output Total 3100 ml 2250 ml Balance -2105 ml -2010 ml Intake Oral 720 ml 240 ml IV Total 275 ml Output Urine Total 3100 ml 2250 ml Laboratory Tests 07/31/17 04:00: White Blood Count 6.9, Red Blood Count 2.88L, Hemoglobin 9.4L, Hematocrit 29.7L , Mean Corpuscular Volume 103H, Mean Corpuscular Hemoglobin 32.7H, Mean Corpuscular Hemoglobin Concent 31.7L, Red Cell Distribution Width 22.4H, Platelet Count 217, Mean Platelet Volume 8.8, Neutrophils (%) (Auto) , Lymphocytes (%) (Auto) , Monocytes (%) (Auto) , Eosinophils (%) (Auto) , Basophils (%) (Auto) , Differential Total Cells Counted 100, Neutrophils % ( Manual) 16L, Lymphocytes % (Manual) 78H, Monocytes % (Manual) 6, Eosinophils % ( Manual) 0, Basophils % (Manual) 0, Band Neutrophils 0, Platelet Estimate Adequate, Platelet Morphology , Giant Platelets Occasional, Polychromasia 1+, Hypochromasia 1+, Anisocytosis 2+, Macrocytosis 2+, Sodium Level 137, Potassium Level 2.7*L, Chloride Level 96L, Carbon Dioxide Level 34H, Anion Gap 8, Blood Urea Nitrogen 44H, Creatinine 2.5H, Estimat Glomerular Filtration Rate 32.1, Glucose Level 123H, Calcium Level 9.2 Height (Feet): 6 Height (Inches): 0.00 Weight (Pounds): 224 General Appearance: lethargic EENT: normal ENT inspection Neck: normal alignment Cardiovascular: normal peripheral pulses, normal rate, regular rhythm Respiratory/Chest: chest wall non-tender, decreased breath sounds Abdomen: normal bowel sounds, non tender, soft Extremities: normal inspection Edema: 1+ Arm (L), 1+ Arm (R), 1+ Leg (L), 1+ Leg (R), 1+ Pedal (L), 1+ Pedal ( R), 1+ Generalized Edema: trace edema Neurologic: motor weakness Skin: normal pigmentation, warm/dry Ludin Blair Bonita ESPINO July 31, 2017 10:03
[2017-07-31] MEDS ORDERED: Azithromycin 250mg tab ORAL SCH (11:00)
[2017-07-31 12:00] VITALS: BP 87/48
[2017-07-31 16:00] VITALS: BP 99/60
[2017-07-31] MEDS: Dolutegravir Sodium 50mg tab ORAL SCH (17:02)
--- NOTE | 2017-07-31 23:48 | Cardiology Progress Note ---
Assessment/Plan Assessment/Plan 1. Acute on chronic congestive heart failure both systolic and diastolic. LVEF at 5% to 10%, continue metolazone and lasix, BNP is trending down. 2. Status post automatic implanted cardioverter pacemaker implant. payroll accounting manager reveals sinus rhythm with a ventricular paced rhythm. 3. History of deep venous thrombosis, on Coumadin. 4. 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 5. Severe pulmonary hypertension due to left heart failure. 6. Chronic kidney disease, most likely cardiorenal syndrome. 7. Stage D heart failure followed by [facility]. 8. Bilateral pleural effusion due to the right heart failure. Subjective Subjective Sinus rhythm at 65 with ventricular paced rhythm. Objective Last 24 Hour Vital Signs Date Time Temp Pulse Resp B/P (MAP) Pulse Ox O2 Delivery O2 Flow Rate FiO2 07/31/17 16:00 66 07/31/17 16:00 97.5 65 20 99/60 94 Room Air 97.5 07/31/17 12:00 67 07/31/17 12:00 96.8 66 20 87/48 97 Room Air 96.8 07/31/17 08:21 75 20 Room Air 21 07/31/17 08:00 70 07/31/17 08:00 97.7 71 20 96/73 92 Room Air 97.7 07/31/17 04:00 96.8 71 20 91/49 94 Room Air 96.8 07/31/17 04:00 69 07/31/17 00:00 68 07/31/17 00:00 97.3 77 21 93/62 93 Room Air 97.3 Intake and Output 07/30/17 07/31/17 19:00 07:00 Intake Total 995 ml 240 ml Output Total 3100 ml 2250 ml Balance -2105 ml -2010 ml Intake Oral 720 ml 240 ml IV Total 275 ml Output Urine Total 3100 ml 2250 ml 2D Echo: EF 10%, Global LV HK, Septal wall HK, RVSP 62 mmHg, Mod MR, Grade II LVDD Laboratory Tests Test 07/31/17 04:00 White Blood Count 6.9 K/UL (4.8-10.8) Red Blood Count 2.88 M/UL (4.70-6.10) L Hemoglobin 9.4 G/DL (14.2-18.0) L Hematocrit 29.7 % (42.0-52.0) L Mean Corpuscular Volume 103 FL (80-99) H Mean Corpuscular Hemoglobin 32.7 PG (27.0-31.0) H Mean Corpuscular Hemoglobin Concent 31.7 G/DL (32.0-36.0) L Red Cell Distribution Width 22.4 % (11.6-14.8) H Platelet Count 217 K/UL (150-450) Mean Platelet Volume 8.8 FL (6.5-10.1) Neutrophils (%) (Auto) % (45.0-75.0) Lymphocytes (%) (Auto) % (20.0-45.0) Monocytes (%) (Auto) % (1.0-10.0) Eosinophils (%) (Auto) % (0.0-3.0) Basophils (%) (Auto) % (0.0-2.0) Differential Total Cells Counted 100 Neutrophils % (Manual) 16 % (45-75) L Lymphocytes % (Manual) 78 % (20-45) H Monocytes % (Manual) 6 % (1-10) Eosinophils % (Manual) 0 % (0-3) Basophils % (Manual) 0 % (0-2) Band Neutrophils 0 % (0-8) Platelet Estimate Adequate Platelet Morphology Giant Platelets Occasional Polychromasia 1+ Hypochromasia 1+ Anisocytosis 2+ Macrocytosis 2+ Sodium Level 137 MMOL/L (136-145) Potassium Level 2.7 MMOL/L (3.5-5.1) *L Chloride Level 96 MMOL/L (98-107) L Carbon Dioxide Level 34 MMOL/L (21-32) H Anion Gap 8 mmol/L (5-15) Blood Urea Nitrogen 44 mg/dL (7-18) H Creatinine 2.5 MG/DL (0.55-1.30) H Estimat Glomerular Filtration Rate 32.1 mL/min (>60) Glucose Level 123 MG/DL (74-106) H Calcium Level 9.2 MG/DL (8.5-10.1) Objective HEENT: Atraumatic, normocephalic, and anicteric. Pupils are equal, round, and reactive to light and accommodation. Extraocular muscles intact. NECK: JVP is elevated at about 15 cm. No carotid bruits. Carotid upstrokes 2+ bilaterally. CARDIOVASCULAR: Normal S1 and S2. Regular rate and rhythm. No murmurs, gallops, or rubs. PMI is at sixth intercostal space in the anterior axillary line. LUNGS: Diminished breath sounds in both lungs with no crackles. ABDOMEN: Distended. Cannot appreciate hepatosplenomegaly. Positive bowel sounds. EXTREMITIES: There is 4+ pitting edema. Salvador Saavedra MD July 31, 2017 23:48
--- NOTE | 2017-08-01 13:58 | Cardiology Report ---
APPROVED REPORT EKG Measurement Heart [id number] Sinus rhythm with ventricular paced rhythm. Electronic pacemaker
--- NOTE | 2017-08-02 16:35 | Discharge Summary ---
Discharge Summary Discharge Summary _ DATE OF ADMISSION: 07/27/2017 DATE OF DISCHARGE: 07/31/2017. Patient signed AGAINST MEDICAL ADVICE REASON FOR ADMISSION: 62 years old male with past medical history significant for severe dilated cardiomyopathy with ejection fraction of 50%, congestive heart failure, HIV status , hepatitis C, history of DVT, status post IVC filter, COPD, presented to emergency department with chest pain and dyspnea . He denied fevers. Vital signs reveal no fever , tachycardia with heart rate 122 ,blood pressure 92/70, pulse oximetry was stable on room air. Troponin 0.048. No leukocytosis, hemoglobin 10.4 , hematocrit 34.5. BUN 33, creatinine 2.5. Lactic acid 3.3 , pro BNP 12,977, EKG revealed tachycardia 118 , paced rhythm. Chest x-ray revealed bilateral basilar infiltrates and likely bilateral pleural fluid. Possible mild pulmonary interstitial congestion. Cardiomegaly. AICD. Findings were consistent with CHF. Elevated LFT noted. Patient admitted with diagnosis of CHF exacerbation , chest pain , cardiomyopathy, renal insufficiency. CONSULTANTS: tapper hand Dr. Saavedra pulmonary Dr. Hodge ID specialist Dr. Marrero zipper setter Dr. Thomas [facility] COURSE: Patient admitted to monitored floor. Disaster Response Director closely followed. Echocardiogram revealed ejection fraction of 10-15%. Severe global left ventricular hypokinesis. Septal and apical dyskinesis. Moderate mitral regurgitation and moderate tricuspid regurgitation. Right ventricular systolic pressure of 60 consistent with severe pulmonary hypertension, bilateral basilar infiltrates and likely bilateral pleural fluid. Possible mild pulmonary interstitial congestion. Cardiomegaly. AICD. Patient started on aggressive diuresis with Lasix and metolazone. Cardiorenal parameters and volumes were closely monitored. Pro BNP trending down from ,977 down to 6852. Telemetry revealed sinus rhythm with ventricular pacing. Second troponin with minimal elevation 0.064 and the last down to normal again. Minimal elevation in troponin insignificant likely secondary to renal failure as well as CHF exacerbation. Blood pressure was closely monitored. DVT prophylaxis provided. Supplemental oxygen provided as needed to keep pulse oximetry above 92%. Pulmonary toilet provided as needed. Infectious disease doctor closely followed. Patient was on empiric antibiotics for bronchitis. Antitussive provided as needed. HAART resumed. CD4 count 1200 and undetectable viral load. Recommended outpatient hepatitis C treatment. Pre School Manager closely followed. 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 I was not involved in the patient's management. Maryann Sneed NP August 02, 2017 16:35
== END 2017-07-31 17:43 | disposition left against medical advice (07) | DRG 194 ==
LOC: EMR 09:12 → 2E 09:25 → EDBEDREQ 10:18
PROC: 02HV33Z Insertion of Infusion Device into Superior Vena Cava, Percutaneous Approach (ICD-10-PCS; principal; 2017-07-27)
DX: I13.0 Hypertensive heart and chronic kidney disease with heart failure and stage 1 through stage 4 chronic kidney disease, or unspecified chronic kidney disease (principal); N17.0 Acute kidney failure with tubular necrosis; I50.43 Acute on chronic combined systolic (congestive) and diastolic (congestive) heart failure; B20 Human immunodeficiency virus [HIV] disease; R07.9 Chest pain, unspecified; N18.9 Chronic kidney disease, unspecified; Z86.718 Personal history of other venous thrombosis and embolism; Z79.01 Long term (current) use of anticoagulants; B19.20 Unspecified viral hepatitis C without hepatic coma; Z95.810 Presence of automatic (implantable) cardiac defibrillator; I42.0 Dilated cardiomyopathy; F15.21 Other stimulant dependence, in remission; Z89.422 Acquired absence of other left toe(s); I27.20 Pulmonary hypertension, unspecified; I50.1 Left ventricular failure, unspecified; J44.1 Chronic obstructive pulmonary disease with (acute) exacerbation
CPT/HCPCS: 36415; 36569; 71045; 76770; 76937; 80048; 80053; 80069; 80307; 81003; 82043; 82044; 82248; 82550; 82570; 82962; 83605; 83690; 83880; 84300; 84484; 85007; 85025; 85610; 85730; 86360; 86850; 86900; 86901; 87081; 89050; 93005; 93306; 93970; 94664; 99285; J8499